=== PATIENT | female | born 1955 | race Caucasian/White ===

== ENCOUNTER 2020-03-13 15:59 | Outpatient (CLI) | payer OTHER, SELFPAY ==
--- NOTE | ~2020-03-13 | XR_ITS ---
XR cervical spine 4-5V 03/13/2020 16:26 Indication: Cervicalgia. Neck pain. Left arm pain. Procedure: 4 views of the cervical spine Comparison: No prior studies for comparison. Findings: Reversal of cervical lordosis. There is disc narrowing at C3-4, C4-5 and C5-6 with endplate degenerative changes. There are uncinate and facet hypertrophic changes at C4-5, C5-6 and C6-7. Lung apices are normal. Odontoid process within normal limits. No prevertebral soft tissue swelling. Impression: 1: Moderate cervical spondylosis with reversal of cervical lordosis. Reviewed, dictated and finalized at location A. Impression: 1: Moderate cervical spondylosis with reversal of cervical lordosis.
--- NOTE | ~2020-03-13 | XR_ITS ---
XR thoracic spine 3V 03/13/2020 16:26 Indication: Back pain Procedure: 5 views of the thoracic spine Comparison: No prior studies for comparison. Findings: Vertebral body heights are maintained. Normal thoracic alignment. Pedicles intact. No jessie rodolfo soft tissue abnormality. There is mild disc narrowing at multiple levels of the mid and lower t horacic spine. Surrounding osseous structures within normal limits. Left basilar atelectasis. Impression: 1: Mild thoracic spondylosis. Reviewed, dictated and finalized at location A. Impression: 1: Mild thoracic spondylosis.
== END 2020-03-13 16:00 | disposition home or self-care (01) ==
PROVIDERS: PCP Family Medicine; Visit Provider Physician Assistant
DX: M54.2 Cervicalgia (principal); M54.6 Pain in thoracic spine; M47.814 Spondylosis without myelopathy or radiculopathy, thoracic region; M47.812 Spondylosis without myelopathy or radiculopathy, cervical region
CPT/HCPCS: 72050; 72072

== ENCOUNTER 2020-08-28 06:34 | Outpatient (NON) | payer BC, SELFPAY ==
[2020-08-29 01:03] LABS: SARS-CoV-2 RNA PCR Negative
== END 2020-08-28 06:35 ==
LOC: ANHCOVIDDT 06:34
PROVIDERS: PCP Family Medicine; Visit Provider Family Medicine
DX: Z20.828 Contact with and (suspected) exposure to other viral communicable diseases (principal); J02.9 Acute pharyngitis, unspecified
CPT/HCPCS: 87635; C9803; U0003

== ENCOUNTER → 2020-11-02 10:17 | Outpatient (CLI) | payer MEDICARE, SELFPAY ==
--- NOTE | ~2020-11-02 | MM_ITS ---
EXAMINATION: MM screening johanna BI w rao HISTORY: Screening mammogram TECHNIQUE: Craniocaudal and mediolateral oblique 3-D tomosynthesis images were obtained and synthetic 2-D images were generated. CAD analysis was submitted and interpreted. COMPARISON: 08/08/2019 bilateral digital screening mammogram 07/20/2018 bilateral diagnostic digital mammogram and Limited bilateral breast ultrasound examination 12/19/2017 bilateral diagnostic digital mammogram and complete bilateral breast ultrasound 12/08/2017, 12/02/2016 bilateral digital screening mammogram examinations BREAST PARENCHYMAL COMPOSITION: There are scattered areas of fibroglandular density. FINDINGS: Mammographic asymmetries are noted in the upper and lower right breast on screening MLO vie w. Diagnostic right mammogram is recommended, with ultrasound if required. Otherwise there is no evidence of suspicious mass, calcification, or architectural distortion to sug gest malignancy in either breast. There has been no other suspicious interval change. IMPRESSION: 1. Mammographic asymmetries in upper and lower right breast on screening MLO view 2. Diagnostic right mammogram is recommended, with ultrasound if required BI-RADS Category 0: Incomplete: Needs additional imaging evaluation. Reviewed, dictated and finalized at location A. ON KEEPER IMPRESSION: 1. Mammographic asymmetries in upper and lower right breast on screening MLO vi ew 2. Diagnostic right mammogram is recommended, with ultrasound if required BI-RADS Category 0: Incomplete: Needs additional imaging evaluation.
== END ==
PROVIDERS: PCP Family Medicine; Visit Provider Obstetrics & Gynecology
DX: Z12.31 Encounter for screening mammogram for malignant neoplasm of breast (principal); R92.8 Other abnormal and inconclusive findings on diagnostic imaging of breast
CPT/HCPCS: 77063; 77067

== ENCOUNTER → 2020-11-10 07:48 | Outpatient (CLI) | payer MEDICARE, SELFPAY ==
--- NOTE | ~2020-11-10 | MMUS_ITS ---
EXAMINATION: MM diagnostic mammo unilat RT, US breast RT complete HISTORY: Follow-up breast asymmetries TECHNIQUE: Additional 3-D tomosynthesis images of right were performed and synthetic 2-D images were generated. CAD analysis was submitted and interpreted. High resolution right breast ultrasound was pe rformed. COMPARISON: Comparison to multiple prior studies sequentially, with oldest reviewed study dated 09/15. BREAST PARENCHYMAL COMPOSITION: Breast composed of scattered areas of fibroglandular density. FINDINGS: MAMMOGRAPHIC FINDINGS: There is a 5 mm mass in the lower inner quadrant of the right breast. There is a 5 mm mass lateral as pect of the right breast on CC view, likely inferior. ULTRASOUND: Right breast ultrasound: At 5:00, 3 cm from the nipple, there is a 2 mm cyst. At 8:00, 6 cm from the nipple, there is a 3 mm cyst. At 9:00, 4 cm from the nipple there is a 5 mm cyst. These correspond to the mammographic findings. No suspicious masses to suggest malignancy. IMPRESSION: 1. No evidence for malignancy in the right breast. Benign findings. 2. Routine yearly screening mammogram and regular clinical breast examination are recommended. BI-RADS Category 2: Benign finding(s). Reviewed, dictated and finalized at location A. ETO SPECIALIST IMPRESSION: 1. No evidence for malignancy in the right breast. Benign findings. 2. Routine yearly screening mammogram and regular clinical breast examination a re recommended. BI-RADS Category 2: Benign finding(s).
== END ==
PROVIDERS: PCP Family Medicine; Visit Provider Obstetrics & Gynecology
DX: R92.8 Other abnormal and inconclusive findings on diagnostic imaging of breast (principal)
CPT/HCPCS: 76641; 77065

== ENCOUNTER 2021-04-03 10:46 | Emergency (ER) | payer MEDICARE, SELFPAY ==
--- NOTE | ~2021-04-03 | CT_ITS ---
EXAMINATION: CT abdomen pelvis w con INDICATION: Abdominal pain TECHNIQUE: Computed tomographic images of the abdomen and pelvis were obtained after the administrati on of 100 cc of Omnipaque 350 intravenous contrast. The dose-length product (DLP) was 612.46 mGy-cm. Automated exposure control and iterative reconstruction technique were employed. COMPARISON: 08/09/2011 FINDINGS: Minimal dependent atelectasis is present in the lung bases. The heart size is normal. Chron ic left lower lobe nodules measuring up to 4 mm are consistent with old granulomatous disease. The li lissette is diffusely low in attenuation when compared with the spleen, consistent with hepatic steatosis. The spleen, pancreas, gallbladder, and adrenal glands are normal. The kidneys are unremarkable. No p athologically enlarged abdominal or pelvic lymph nodes are identified. There is no free intraperitone al gas or evidence of bowel obstruction. There is wall thickening of the sigmoid colon and proximal r ectum with edematous stranding of the adjacent pericolic fat. There is mild lumbar spondylosis. IMPRESSION: 1. Wall thickening of the sigmoid colon and proximal rectum consistent with colitis. 2. Diffuse hepatic steatosis. Reviewed, dictated and finalized at location A. IMPRESSION: 1. Wall thickening of the sigmoid colon and proximal rectum consistent with col itis. 2. Diffuse hepatic steatosis.
[2021-04-03 10:52] VITALS: BP 154/67; PULSE 83; RESP 20; TEMP 36.8; O2SAT 100
[2021-04-03 11:02] VITALS: BP 131/91; PULSE 88; RESP 20; O2SAT 100
[2021-04-03 11:07] LABS: Basophils Absolute Auto 0.1 K/mm3 (0.0-0.1); Basophils Percent Auto 0.6 % (0.2-1.2); Eosinophils Absolute Auto 0.2 K/mm3 (0-0.3); Eosinophils Percent Auto 1.9 % (0-4.4); Hematocrit 43.5 % (37.0-47.0); Hemoglobin 14.8 g/dL (12.0-15.0); Immature Granulocyte Absolute 0.04 K/mm3 (0.00-0.031); Immature Granulocyte Percent A 0.4 % (0-0.5); Lymphocytes Percent Auto 28.4 % (18.3-44.2); Mean Corpuscular Hemoglobin 30.8 pg (26-34); Mean Corpuscular Volume 90.4 fl (80-100); Mean Platelet Volume 10.7 fl (7.4-10.4); Monocytes Absolute Auto 0.6 K/mm3 (0.1-0.6); Monocytes Percent Auto 5.7 % (2.6-8.5); Neutrophils Absolute Auto 6.4 K/mm3 (1.3-6.7); Platelet Count Result 274 k/mm3 (150-375); Red Blood Count 4.81 M/mm3 (4.2-5.4); Red Cell Distribution Width 12.9 % (11.5-14.5); White Blood Count 10.2 K/mm3 (4.5-10.0)
[2021-04-03 11:16] LABS: Alanine Aminotransferase 42 U/L (4-35); Albumin Level 4.9 g/dL (3.5-5.1); Alkaline Phosphatase 122 U/L (38-126); Anion Gap 13 mmol/L (8-16); Aspartate Amino Transferase 39 U/L (14-36); Bilirubin,Total 0.5 mg/dL (0.2-1.3); Blood Urea Nitrogen 17 mg/dL (7-17); Calcium 10.5 mg/dL (8.4-10.2); Carbon Dioxide 22 mmol/L (22-30); Chloride 105 mmol/L (98-107); Estimated CRCL calculation 75 ml/min; Estimated Glomerular Filt Rate > 60; Glucose 167 mg/dL (65-105); Lipase 123 U/L (23-300); Potassium 3.4 mmol/L (3.4-5.0); Sodium 140 mmol/L (137-145)
--- NOTE | 2021-04-03 11:23 | ED.GENADULT ---
HPI - General Adult General Chief complaint: Abdominal Pain Stated complaint: abd pain Time Seen by Provider: 04/03/21 10:50 Source: patient Mode of arrival: ambulatory Limitations: no limitations History of Present Illness HPI narrative: Patient presents for evaluation of abdominal pain. Symptom onset this morning. She states she has constant cramping and churning with intermittent periods of sharp pain. She has a hx of diverticulosis/diverticulitis and states current symptoms are consistent with those experienced with diverticulitis in the past. She states she ate popcorn last night and this has induced symptoms in the past. She experienced cold sweats and nausea. No fever or vomiting. She had a bowel movement just prior to my evaluation and states that this did alleviate some of her pain. She did note some mucous in the stool without visible blood. Related Data Home Medications Medication Instructions Recorded Confirmed calcium carbonate 600 mg calcium 600 mg PO DAILY 10/31/19 04/03/21 (1,500 mg) tablet cholecalciferol (vitamin D3) 100 4,000 unit PO DAILY 10/31/19 04/03/21 mcg (4,000 unit) tablet losartan-hydrochlorothiazide 1 tablet PO DAILY 04/03/21 04/03/21 Allergies Allergy/AdvReac Type Severity Reaction Status Date / Time Penicillins Allergy Unknown Unknown Verified 04/03/21 10:55 Review of Systems Review of Systems: Narrative: CONSTITUTIONAL: Reports cold sweats. Denies fever EYES: Denies visual changes, redness, or discharge. ENT: Denies rhinorrhea, congestion, sore throat, or otalgia. CARDIOVASCULAR: Denies chest pain, palpitations, or edema. RESPIRATORY: Denies cough or dyspnea. GASTROINTESTINAL: Reports abdominal pain and nausea. Denies vomiting GENITOURINARY: Denies dysuria or hematuria. SKIN: Denies rash or itching. MUSCULOSKELETAL: Denies back pain, joint pain, or myalgia. NEUROLOGIC: Denies headache, numbness, dizziness, or weakness. PSYCHIATRIC: Denies anxiety or depression. [facility] Past Medical History Medical History Asthma Diverticulitis Hyperlipidemia Hypertension Irritable bowel Osteoporosis Pneumonia Surgical History Surgical History H/O laparoscopy Family History Family History Mother Family history of malignant neoplasm Father Family history of diabetes mellitus in first degree relative Diabetes mellitus Other Family history of malignant neoplasm of breast Social History Social History Smoking status: Never smoker Second hand tobacco smoke exposure: No Alcohol intake: current Drinks per week: 6 Substance use: never Substance use type: does not use Gender identity (if verbalized by the patient): Female Exam Narrative: Exam Narrative: GENERAL: Well-appearing, well-nourished, and in no acute distress. HEAD: Normocephalic, atraumatic. EYES: PERRLA and EOMI. ENT: Nares clear, no rhinorrhea or epistaxis. Mucous membranes moist. Oropharynx without tonsillar hypertrophy exudate or other lesions. Bilateral TMs pearly calderon nonbulging NECK: Supple. No adenopathy or masses. No carotid bruits or JVD CHEST: Clear to auscultation. No respiratory distress. No wheezes rales or rhonchi HEART: Regular rate and rhythm. No murmur heard. Normal peripheral pulses. ABDOMEN: Soft, tender in BLQ and suprapubic region. Nondistended, normal active bowel sounds. EXTREMITIES: Normal range of motion. No edema. SKIN: Warm, dry, no rash. NEURO: No focal deficits. Alert and oriented x3. PSYCH: Normal mood and affect. Course Course Emergency Course: This is a 65-year-old female who presented with complaints of abdominal pain. CT consistent with colitis. She was given morphine in the emergency department and had alleviation of her
[2021-04-03] MEDS: MORPHINE SULFATE (*CRX) 2 MG/ML INJ IV PUSH (12:06)
[2021-04-03] MEDS: SODIUM CHLORIDE 0.9% IV 1,000 ML 999 ML IV CONT (12:06)
[2021-04-03 12:21] LABS: Add Urine Microscopic? YES; Appearance Urine Clear (Clear); Bilirubin Urine Negative (Negative); Blood Urine Negative (Negative); Color Urine Amber (Yellow); Glucose Urine UA Negative (Negative); Ketones Urine Negative (Negative); Leukocyte Esterase Ur Negative LEU/UL (Negative); Mucus Urine Moderate /lpf; Nitrate Urine Negative (Negative); Protein Urine 2+ mg/dL (Negative); RBC Urine 0-2 /hpf (0-2); Specific Grav Ur 1.021 (1.001-1.035); Squamous Epithelial Cell Urine Few /hpf (Few); Urobilinogen Urine Negative mg/dL (<2.0); WBC Urine 0-3 /hpf
[2021-04-03 13:44] VITALS: BP 128/68; PULSE 88; RESP 17; O2SAT 98
[2021-04-03] MEDS: HYDROcodone/acetaminophen (*CRX) 5-325 MG TABLET 2 TAB PO (13:51)
== END 2021-04-03 13:52 | disposition home or self-care (01) ==
PROVIDERS: Emergency Provider Nurse Practitioner; PCP Family Medicine
DX: K52.9 Noninfective gastroenteritis and colitis, unspecified (principal); K76.0 Fatty (change of) liver, not elsewhere classified; J45.909 Unspecified asthma, uncomplicated; E78.5 Hyperlipidemia, unspecified; I10 Essential (primary) hypertension; M81.0 Age-related osteoporosis without current pathological fracture
CPT/HCPCS: 36415; 74177; 80053; 81001; 83690; 85025; 96361; 96374; 99284; A9270; J2270; J7030; Q9967

== ENCOUNTER 2021-06-08 01:35 | Day surgery (SDC) | payer MEDICARE, SELFPAY ==
[2021-05-28 09:33] VITALS: BMI 25.9
--- NOTE | 2021-06-07 13:32 | P.PNAN_ITS ---
Anes - Initial Pre Proc Eval Procedure: Operation Date: 06/08/21 07:30 Proposed Procedures p Colonoscopy - Marcial Wilkes MD Date/Time: 06/07/21 13:32 Surgeon: Marcial Wilkes MD Pre Op Diagnosis: colitis Patient Data Age: 65 Gender: F Height: 1.78 m Weight: 82 kg Allergies Allergy/AdvReac Type Severity Reaction Status Date / Time Penicillins Allergy Unknown Unknown Verified 06/08/21 06:19 Home Medications Medication Instructions Recorded Confirmed Type calcium carbonate 600 mg calcium 600 mg PO DAILY 10/31/19 06/08/21 History (1,500 mg) tablet cholecalciferol (vitamin D3) 100 4,000 unit PO DAILY 10/31/19 06/08/21 History mcg (4,000 unit) tablet melatonin 10 mg capsule 10 mg PO QHS #30 cap 12/28/20 06/08/21 Rx montelukast 10 mg tablet 10 mg PO DAILY #90 tablet 03/10/21 06/08/21 Rx losartan-hydrochlorothiazide 1 tablet PO DAILY 04/03/21 06/08/21 History diclofenac sodium 50 mg 50 mg PO .PRN tablet 04/20/21 06/08/21 History tablet,delayed release Patient hx anesthesia problems: none Family hx anesthesia problems: none PMFSH Past Medical History Medical History (Updated 06/07/21 @ 13:32 by Jasiel Noble DO) Asthma Diverticulitis Hyperlipidemia Hypertension Irritable bowel Osteoporosis Pneumonia PVC's (premature ventricular contractions) RBBB Surgical History Surgical History H/O laparoscopy Family History Family History (Updated 04/20/21 @ 10:21 by Gail Tirado MA) Mother Family history of malignant neoplasm Father Family history of diabetes mellitus in first degree relative Diabetes mellitus Sibling Diabetes mellitus Hypertension Grandparent Cancer Other Family history of malignant neoplasm of breast Social History Social History (Updated 04/20/21 @ 10:22 by Gail Tirado MA) Smoking status: Never smoker Second hand tobacco smoke exposure: No Alcohol intake: current Drinks per week: 10 Substance use: never Substance use type: does not use Living arrangements: with family Gender identity (if verbalized by the patient): Female Spiritual care concerns: No Agree to blood products: Yes Anes - Eval Final PreProcedure Day of Procedure 06/07/21 13:32 Patient weight: overweight Heart: regular rate and rhythm Lungs: clear to auscultation and normal air movement Airway: Mallampati scale class II Neurological: alert and oriented Last oral intake: >/= 8 hours ASA classification: III Emergent: no Anesthetic plan: proceed Anesthesia type and monitoring: general GIVS and standard monitoring Informed Consent: The patient's anesthetic plan and its attendant risks and benefits were discussed with the patient/family/POA. Questions were solicited and answers provided to the satisfaction of the patient/family/POA.
[2021-06-08 06:20] VITALS: BP 135/62; PULSE 83; RESP 16; TEMP 36.6; O2SAT 98; BMI 26.4
[2021-06-08] MEDS: LACTATED RINGERS 1,000 ML 150 ML IV CONT (06:23)
--- NOTE | 2021-06-08 07:33 | PM.HPGS ---
History of Present Illness History of Present Illness Consent: Risks, benefits, and alternatives have been discussed and questions answered. Patient agrees to proceed with procedure. Chief complaint: colitis Narrative: Anabela Eaton is a 65 year old female that several weeks ago had left sided colitis treated with antibiotics and resolved since. She had colonoscopy [place] [address] Davis that was unsuccessful believed to be caused by stricture 2/2 endometriosis. Had positive Cologuard in 2018 followed by a virtual colonoscopy. Review of Systems Constitutional: Constitutional: Denies headache(s) and Denies weakness Eyes: Eyes: Denies blurry vision ENT: Reports Normal hearing present, Denies headache(s) and Denies neck pain Cardiovascular: Cardiovascular: Denies chest pain and Denies dyspnea Respiratory: Respiratory: Denies dyspnea Gastrointestinal: Gastrointestinal: Reports no additional gastrointestinal complaints Genitourinary: Genitourinary: Denies dysuria Musculoskeletal: Musculoskeletal: Denies neck pain Integumentary/Breasts: Skin/Breast: Denies dry skin Neurologic: Reports Normal hearing present, Denies headache(s) and Denies weakness Psychiatric: Psychiatric: Denies anxiety Endocrine: Endocrine: Denies change in body appearance Hematologic/Lymphatic: Hematologic/Lymphatic: Denies easy bleeding Allergic/Immunologic: Allergic/Immunologic: Denies urticaria PMFSH Past Medical History Medical History (Updated 06/07/21 @ 13:32 by Jasiel Noble DO) Asthma Diverticulitis Hyperlipidemia Hypertension Irritable bowel Osteoporosis Pneumonia PVC's (premature ventricular contractions) RBBB Surgical History Surgical History H/O laparoscopy Family History Family History (Updated 04/20/21 @ 10:21 by Gail Tirado MA) Mother Family history of malignant neoplasm Father Family history of diabetes mellitus in first degree relative Diabetes mellitus Sibling Diabetes mellitus Hypertension Grandparent Cancer Other Family history of malignant neoplasm of breast Social History Social History (Updated 04/20/21 @ 10:22 by Gail Tirado MA) Smoking status: Never smoker Second hand tobacco smoke exposure: No Alcohol intake: current Drinks per week: 10 Substance use: never Substance use type: does not use Living arrangements: with family Gender identity (if verbalized by the patient): Female Spiritual care concerns: No Agree to blood products: Yes Meds Home Medications and Allergies Home Medications Medication Instructions Recorded Confirmed Type calcium carbonate 600 mg calcium 600 mg PO DAILY 10/31/19 06/08/21 History (1,500 mg) tablet cholecalciferol (vitamin D3) 100 4,000 unit PO DAILY 10/31/19 06/08/21 History mcg (4,000 unit) tablet melatonin 10 mg capsule 10 mg PO QHS #30 cap 12/28/20 06/08/21 Rx montelukast 10 mg tablet 10 mg PO DAILY #90 tablet 03/10/21 06/08/21 Rx losartan-hydrochlorothiazide 1 tablet PO DAILY 04/03/21 06/08/21 History diclofenac sodium 50 mg 50 mg PO .PRN tablet 04/20/21 06/08/21 History tablet,delayed release Allergies Allergy/AdvReac Type Severity Reaction Status Date / Time Penicillins Allergy Unknown Unknown Verified 06/08/21 06:19 Vital Signs Vital Signs - 24 hr 06/08/21 06:20 Temperature 98 F Pulse Rate 83 Respiratory Rate 16 Blood Pressure 135/62 Pulse Oximetry 98 Exam Const: General: comfortable and no acute distress HENMT: General nose exam: Normal nares present Eyes: General: appearance normal, both eyes and all related structures Neck: Neck: no JVD Resp: Auscultation: clear to auscultation bilaterally Cardio: Rate: regular rate Rhythm: regular rhythm GI: Inspection: non-distended GI Palp: Yes Soft to palpation Skin: General skin exam: normal color Neuro: General: gait normal Speech: normal speech
[2021-06-08 08:12] VITALS: BP 103/74; PULSE 59; RESP 15; O2SAT 99
[2021-06-08 08:22] VITALS: BP 111/64; PULSE 65; RESP 19; O2SAT 100
[2021-06-08 08:32] VITALS: BP 118/80; PULSE 56; RESP 16; O2SAT 97
== END 2021-06-08 08:41 | disposition home or self-care (01) ==
PROVIDERS: PCP Family Medicine; Visit Provider Internal Medicine Gastroenterology
PROC: 0DJD8ZZ Inspection of Lower Intestinal Tract, Via Natural or Artificial Opening Endoscopic (ICD-10-PCS; CPT 45378; principal; 2021-06-08 07:30)
DX: Z09 Encounter for follow-up examination after completed treatment for conditions other than malignant neoplasm (principal); K52.9 Noninfective gastroenteritis and colitis, unspecified; K57.30 Diverticulosis of large intestine without perforation or abscess without bleeding; K64.8 Other hemorrhoids; J45.909 Unspecified asthma, uncomplicated; E78.5 Hyperlipidemia, unspecified; I10 Essential (primary) hypertension; M81.0 Age-related osteoporosis without current pathological fracture; I49.3 Ventricular premature depolarization; I45.10 Unspecified right bundle-branch block
CPT/HCPCS: 45378; J2704; J7120

== ENCOUNTER → 2021-06-23 09:48 | Outpatient (CLI) | payer MEDICARE, SELFPAY ==
[2021-06-23 20:24] LABS: SARS-CoV-2 RNA PCR Negative
== END ==
PROVIDERS: PCP Family Medicine; Visit Provider Nurse Practitioner Family
DX: R05 Cough (principal); R68.89 Other general symptoms and signs; Z20.822 Contact with and (suspected) exposure to COVID-19
CPT/HCPCS: C9803; U0003; U0005

== ENCOUNTER 2021-11-22 09:59 | Outpatient (CLI) | payer MEDICARE, SELFPAY ==
[2021-11-22 11:46] LABS: Basophils Absolute Auto 0.1 K/mm3 (0.0-0.1); Basophils Percent Auto 0.7 % (0.2-1.2); Eosinophils Absolute Auto 0.2 K/mm3 (0-0.3); Eosinophils Percent Auto 2.3 % (0-4.4); Hematocrit 41.8 % (37.0-47.0); Hemoglobin 14.1 g/dL (12.0-15.0); Immature Granulocyte Absolute 0.02 K/mm3 (0.00-0.031); Immature Granulocyte Percent A 0.3 % (0-0.5); Lymphocytes Absolute Auto 1.99 K/mm3 (0.9-3.2); Lymphocytes Percent Auto 28.6 % (18.3-44.2); Mean Corpuscular HGB Conc 33.7 g/dl (32-36); Mean Corpuscular Hemoglobin 32.6 pg (26-34); Mean Corpuscular Volume 96.5 fl (80-100); Mean Platelet Volume 10.3 fl (7.4-10.4); Monocytes Absolute Auto 0.5 K/mm3 (0.1-0.6); Monocytes Percent Auto 6.8 % (2.6-8.5); Neutrophils Absolute Auto 4.3 K/mm3 (1.3-6.7); Neutrophils Percent Auto 61.3 % (45.5-73.1); Platelet Count Result 247 k/mm3 (150-375); Red Blood Count 4.33 M/mm3 (4.2-5.4); Red Cell Distribution Width 12.6 % (11.5-14.5)
[2021-11-22 12:00] LABS: Albumin Level 4.5 g/dL (3.5-5.1); Anion Gap 8 mmol/L (8-16); Blood Urea Nitrogen 20 mg/dL (7-17); Calcium 9.7 mg/dL (8.4-10.2); Carbon Dioxide 28 mmol/L (22-30); Chloride 100 mmol/L (98-107); Estimated Glomerular Filt Rate > 60; Glucose 102 mg/dL (65-110); Potassium 3.6 mmol/L (3.4-5.0); Sodium 136 mmol/L (137-145)
[2021-11-22 12:07] LABS: Urine Cotinine NEGATIVE
[2021-11-22 12:21] LABS: Hemoglobin A1C 5.5 % (<5.7)
== END 2021-11-22 10:00 | disposition home or self-care (01) ==
LOC: ANHSURGERY 10:06
PROVIDERS: PCP Family Medicine; Visit Provider Orthopaedic Surgery
DX: Z01.818 Encounter for other preprocedural examination (principal); M16.11 Unilateral primary osteoarthritis, right hip
CPT/HCPCS: 80048; 80307; 82040; 83036; 85025; 87070; 87147; 87181; 87186

== ENCOUNTER 2021-12-06 00:47 | Day surgery (SDC) | payer MEDICARE, SELFPAY ==
[2021-11-22 10:21] VITALS: BMI 28.6
--- NOTE | 2021-11-22 10:44 | PC.NURSE ---
Report to the Outpatient Waiting Room, entrance under the green pavilion located off [facility], at time _6:00AM on date __12/06/21 . OR Time: ___7:30AM . - You will be asked a series of questions to screen for COVID 19 for your protection. - A mask is required within the hospital. - No visitors are allowed at this time. Preoperative COVID Testing Requirements: No COVID Test needed if: (proof is required; if not received patient will have Rapid Test prior to entry) - Patient has received COVID Vaccine at least 14 days prior to procedure date or - Patient has positive COVID test result within last 90 days of surgery date. COVID Test needed if above criteria is not met If not COVID vaccinated a COVID test must be conducted within 72 hours of surgery and patient is asked to isolate self from time of testing until procedure. You will go to the [employer] [facility] for your COVID testing. The [employer] [facility] Testing site is located at the corner of [address] [facility]. You will only be called if COVID results are positive and your surgeon may reschedule your elective surgery date. Patients may have clear liquids (water, carbonated beverages, clear teas, apple juice) until 3 hours prior to surgery with a maximum of 20 ounces. - No food from midnight until time of surgery - Infants may have breast milk until 4 hours before surgery, infant formula 6 hours prior to surgery. - Children will be allowed to drink immediately following surgery. If applicable, please bring a bottle or sippy cup to assist with drinking. Juice, water, soda, and popsicles are readily available. For infants on formula, please bring formula the day of surgery. Pacifiers are allowed. Take the following medications with a SIP of water the morning of surgery: ____NONE Medications to discontinue per physician ALL VITAMINS/SUPPLEMENTS 3 DAYS PRE-OP, LAST DOSE 12/02/21, DICLOFENAC 7 DAYS DAYS PRE-OP, LAST DOSE 11/29/21 Date to take last dose Please no make-up, nail mauritian, hairspray, perfume, deodorant, or body powder the day of surgery. No jewelry (including any body piercings) or valuables the day of surgery, leave them at home. Please take a shower or bath the night before, or the morning of, surgery with an antibacterial soap. Wear comfortable, loose fitting clothing. Children are encouraged to wear pajamas. - Jewelry must be removed prior to entering the operating room. Rings and piercings that are not removed may be cut off. - The hospital will not accept responsibility for valuables. - Please leave all valuables, including medications, at home the day of surgery. If you are going home after surgery, a licensed services delivery driver must drive you home. - NO public transportation without another adult. - We recommend that an adult stay with you for 24 hours following discharge. - We also recommend that you do not drive, make important decision, drink alcoholic beverages, or take any drugs that were not prescribed by your health care provider for at least 24 hours after your discharge time. For Pediatric surgeries, we recommend two adults accompany the child home (only one inside the building at this time). Follow any additional instructions given to you from your surgeon. Telephone instructions given to __PATIENT and asked if any additional questions and then verbalized understanding. Patient advised to call surgeon office or pre surgery nurse liaison [phone] if any additional questions.
[2021-11-22 10:54] VITALS: BP 142/67; PULSE 67; RESP 16; TEMP 36.5; O2SAT 96
--- NOTE | 2021-12-03 07:56 | PM.IMHP ---
H&P: HPI History of Present Illness Date/Time: 12/03/21 07:56 66-year-old female who presents today for a right anterior total hip arthroplasty. Patient has been having progressively worsening symptoms over the course of last several years. Reached a point she is having severe pain daily basis. She has been on anti-inflammatories long-term. Patient does have moderately severe arthritis in the. This she feels her symptoms are bad enough on a daily basis she is ready to proceed with total hip arthroplasty rather continue nonsurgical treatment. Chief Complaint: Right hip DJD Review of Systems Review of Systems: All systems reviewed & are unremarkable except as noted in HPI and below PMFSH Past Medical History Medical History Asthma Diverticulitis Hyperlipidemia Hypertension Irritable bowel Osteoporosis Pneumonia PVC's (premature ventricular contractions) RBBB Surgical History Surgical History H/O laparoscopy Family History Family History Mother Family history of malignant neoplasm Father Family history of diabetes mellitus in first degree relative Diabetes mellitus Sibling Diabetes mellitus Hypertension Grandparent Cancer Other Family history of malignant neoplasm of breast Social History Social History Smoking status: Never smoker Second hand tobacco smoke exposure: No Alcohol intake: never Drinks per week: 7 Substance use: never Substance use type: does not use Additional living arrangements comments: Gender identity (if verbalized by the patient): Female Sexual Orientation (if Verbalized by the Patient): Straight or Heterosexual Spiritual care concerns: No Agree to blood products: Yes Meds Home Medications and Allergies Home Medications Medication Instructions Recorded Confirmed Type calcium carbonate 600 mg calcium 600 mg PO DAILY 10/31/19 11/22/21 History (1,500 mg) tablet melatonin 10 mg capsule 10 mg PO QHS #30 cap 12/28/20 11/22/21 Rx montelukast 10 mg tablet 10 mg PO DAILY #90 tablet 03/10/21 11/22/21 Rx diclofenac sodium 50 mg 50 mg PO DAILY PRN tablet 04/20/21 11/22/21 History tablet,delayed release albuterol sulfate 90 mcg/actuation 2 inh INHALATION Q4H PRN #6.7 g 06/22/21 11/22/21 Rx aerosol inhaler cholecalciferol (vitamin D3) 50 mcg PO DAILY 11/22/21 11/22/21 History losartan-hydrochlorothiazide 1 tablet PO QAM 11/22/21 11/22/21 History Allergies Allergy/AdvReac Type Severity Reaction Status Date / Time Penicillins Allergy Unknown Rash Verified 11/22/21 10:16 Exam Narrative: 66-year-old female alert pleasant. She is 5 ft 9 and 1 and 6 lb. She has a 2+ dorsalis pedis and posterior artery pulse is palpable. Normal sensation. Skin around hip and groin crease are all normal. No edema in lower extremities. The right hip flexes to 125 internally rotates to 0 externally rotates to 30, all causing anterior lateral and lateral hip pain. Stinchfield maneuver causes anterior lateral hip pain. He has normal abduction strength in lateral position. Minimal tenderness over the greater trochanter. She walks with a very slight limp. Resp: Auscultation: clear to auscultation bilaterally Cardio: Rate: regular rate Rhythm: regular rhythm Assessment and Plan Additional Plan 66-year-old female who has moderately severe arthritis of right hip. Again she is having significant symptoms on a daily basis. She has been on anti-inflammatories long-term without improvement of her symptoms. She feels that the hip is affecting her daily life. She feels that at this point she would like to proceed with total hip arthroplasty. Surgical procedures well as the risks and complications were discussed in detail questions were answered doris costa
--- NOTE | 2021-12-03 16:20 | WPDANESEPPF ---
Anes - Initial Pre Proc Eval Procedure: Operation Date: 12/06/21 07:30 Proposed Procedures p Right Total Hip Arthroplasty Anterior Approach - Darci Graves MD Date/Time: 12/03/21 16:20 Surgeon: Darci Graves MD Pre Op Diagnosis: oa right hip Patient Data Age: 66 Gender: F Height: 1.75 m Weight: 88.1 kg Last Vital Signs Temp 97.7 F 11/22/21 10:54 Pulse 67 11/22/21 10:54 Resp 16 11/22/21 10:54 BP 142/67 H 11/22/21 10:54 Pulse Ox 96 11/22/21 10:54 Allergies Allergy/AdvReac Type Severity Reaction Status Date / Time Penicillins Allergy Unknown Rash Verified 11/22/21 10:16 Home Medications Medication Instructions Recorded Confirmed Type calcium carbonate 600 mg calcium 600 mg PO DAILY 10/31/19 12/06/21 History (1,500 mg) tablet melatonin 10 mg capsule 10 mg PO QHS #30 cap 12/28/20 12/06/21 Rx montelukast 10 mg tablet 10 mg PO DAILY #90 tablet 03/10/21 12/06/21 Rx diclofenac sodium 50 mg 50 mg PO DAILY PRN tablet 04/20/21 12/06/21 History tablet,delayed release albuterol sulfate 90 mcg/actuation 2 inh INHALATION Q4H PRN #6.7 g 06/22/21 12/06/21 Rx aerosol inhaler cholecalciferol (vitamin D3) 50 mcg PO DAILY 11/22/21 12/06/21 History losartan-hydrochlorothiazide 1 tablet PO QAM 11/22/21 12/06/21 History Patient hx anesthesia problems: post op nausea/vomiting Family hx anesthesia problems: none Results Review: All pre-operative results and documents have been reviewed as part of the pre-operative evaluation. PMFSH Past Medical History Medical History Asthma Diverticulitis Hyperlipidemia Hypertension Irritable bowel Osteoporosis Pneumonia PVC's (premature ventricular contractions) RBBB Surgical History Surgical History H/O laparoscopy Family History Family History Mother Family history of malignant neoplasm Father Family history of diabetes mellitus in first degree relative Diabetes mellitus Sibling Diabetes mellitus Hypertension Grandparent Cancer Other Family history of malignant neoplasm of breast Social History Social History Smoking status: Never smoker Second hand tobacco smoke exposure: No Alcohol intake: never Drinks per week: 7 Substance use: never Substance use type: does not use Living arrangements: with family Additional living arrangements comments: Gender identity (if verbalized by the patient): Female Sexual Orientation (if Verbalized by the Patient): Straight or Heterosexual Spiritual care concerns: No Agree to blood products: Yes Anes - Eval Final PreProcedure Day of Procedure 12/03/21 16:20 Patient weight: normal Heart: regular rate and rhythm Lungs: clear to auscultation Airway: Mallampati scale class III Neurological: alert and oriented Last oral intake: >/= 8 hours ASA classification: III Emergent: no Anesthetic plan: proceed Anesthesia type and monitoring: general ETT and standard monitoring Results Review: All pre-operative results and documents have been reviewed as part of the pre-operative evaluation. Informed Consent: The patient's anesthetic plan and its attendant risks and benefits were discussed with the patient/family/POA. Questions were solicited and answers provided to the satisfaction of the patient/family/POA.
[2021-12-06] MEDS: LACTATED RINGERS 1,000 ML 30 ML IV CONT (06:40)
[2021-12-06] MEDS: TRANEXAMIC ACID 1,000MG/ISO100 1,000 MG/100 ML BAG 200 MG IVPB (06:46)
[2021-12-06] MEDS: ACETAMINOPHEN 500 MG TABLET 1000 MG PO (06:47)
[2021-12-06 06:54] VITALS: BP 122/59; PULSE 76; RESP 16; TEMP 36; O2SAT 97
--- NOTE | 2021-12-06 07:09 | WPDHPUPDATE1 ---
History and Physical Update Update Date/Time: 12/06/21 07:09 History and Physical has been reviewed, including an updated exam of the patient. There are NO changes in the patient's condition. Risks, benefits, and alternatives have been discussed and questions answered. Patient agrees to proceed with procedure.
[2021-12-06] MEDS: SCOPOLAMINE 1.5 MG PATCH TRANSDERM (07:23)
[2021-12-06] MEDS: ceFAZolin 2 GM/D5W 50 ML 2 GM/50 ML BAG IVPB (07:44)
--- NOTE | 2021-12-06 08:13 | ECG_ITS ---
Measurements Intervals [place] Rate: 83 P: 74 SC: 146 QRS: 59 QRSD: 147 T: 41 QT: 404 QTc: 475 Interpretive Statements SINUS RHYTHM VENTRICULAR BIGEMINY AND VENTRICULAR PREMATURE COMPLEX POSSIBLE LEFT ATRIAL ENLARGEMENT RIGHT BUNDLE BRANCH BLOCK ABNORMAL ECG Electronically Signed On 12-06-2021 13:01:20 PHYSICIAN SCRIBE by Carlos Nassar D.O.
[2021-12-06 08:15] VITALS: BP 110/95; PULSE 81; RESP 16; O2SAT 100
[2021-12-06 08:30] VITALS: BP 138/81; PULSE 77; RESP 12; O2SAT 100
--- NOTE | 2021-12-06 08:42 | SUR.PHASEI ---
0813 surgery aborted due to heart rate in the 30's, pvc's, and a Rbbb. pt has had a history of pvc's and RBBB. pt vital signs stable in pacu, asymptomatic.
[2021-12-06 08:48] VITALS: BP 153/63; PULSE 50; RESP 12; O2SAT 100
[2021-12-06 09:15] VITALS: BP 146/77; PULSE 73; RESP 12
--- NOTE | 2021-12-06 09:18 | SUR.PHASEII ---
PT WAS ALERT AND DISCHARGED HOME WITH .
== END 2021-12-06 09:20 | disposition home or self-care (01) ==
PROVIDERS: PCP Family Medicine; Visit Provider Orthopaedic Surgery
PROC: (CPT 27130; principal; 2021-12-06 07:30)
DX: M16.11 Unilateral primary osteoarthritis, right hip (principal); Z53.09 Procedure and treatment not carried out because of other contraindication; Z79.51 Long term (current) use of inhaled steroids; J45.909 Unspecified asthma, uncomplicated; E78.5 Hyperlipidemia, unspecified; I10 Essential (primary) hypertension; K58.9 Irritable bowel syndrome, unspecified; M81.0 Age-related osteoporosis without current pathological fracture; I49.3 Ventricular premature depolarization; I45.10 Unspecified right bundle-branch block; R00.8 Other abnormalities of heart beat
CPT/HCPCS: 27130; 36415; 80048; 80307; 82040; 83036; 85025; 86850; 86900; 86901; 87070; 87147; 87181; 87186; 93005; A9270; C1713; J0171; J0690; J1170; J1885; J2250; J2270; J2795; J3010; J3370; J7120

== ENCOUNTER 2022-01-19 01:22 | Day surgery (SDC) | payer MEDICARE, SELFPAY ==
--- NOTE | 2022-01-07 11:14 | PC.NURSE ---
Report to the Outpatient Waiting Room, entrance under the green pavilion located off [facility], at time __0600 on date _01/19/22 . OR Time: . - You and your visitor will be asked a series of questions to screen for COVID 19 for your protection. - A mask is required within the hospital. Preoperative COVID Testing Requirements: No COVID Test needed if: (proof is required; if not received patient will have Rapid Test prior to entry) - Patient has received COVID Vaccine at least 14 days prior to procedure date or - Patient has positive COVID test result within last 90 days of surgery date. COVID Test needed if above criteria is not met If not COVID vaccinated a COVID test must be conducted within 72 hours of surgery and patient is asked to isolate self from time of testing until procedure. You will go to the [employer] [facility] for your COVID testing. The [employer] [facility] is located at the corner of [address] [facility]. You will only be called if COVID results are positive and your surgeon may reschedule your elective surgery date. Patients may have clear liquids (water, carbonated beverages, clear teas, apple juice) until 3 hours prior to surgery with a maximum of 20 ounces. - No food from midnight until time of surgery - Infants may have breast milk until 4 hours before surgery, formula 6 hours prior to surgery. - Children will be allowed to drink immediately following surgery. If applicable, please bring a bottle or sippy cup to assist with drinking. Juice, water, soda, and popsicles are readily available. For infants on formula, please bring formula the day of surgery. Pacifiers are allowed. Take the following medications with a SIP of water the morning of surgery: ___INHALER IF NEEDED Medications to discontinue per physician PT STATES ASPIRIN AND ALL VITAMINS AND SUPPLEMENTS 7 DAYS PRE OP PER DR SHEIKH Date to take last dose___01/11/22 Please no make-up, nail uzbek, hairspray, perfume, deodorant, or body powder the day of surgery. No jewelry (including any body piercings) or valuables the day of surgery, leave them at home. Please take a shower or bath the night before, or the morning of, surgery with an antibacterial soap. Wear comfortable, loose fitting clothing. Children are encouraged to wear pajamas. - Jewelry must be removed prior to entering the operating room. Rings and piercings that are not removed may be cut off. - The hospital will not accept responsibility for valuables. - Please leave all valuables, including medications, at home the day of surgery. If you are going home after surgery, a licensed diesel truck driver must drive you home. - NO public transportation without another adult. - We recommend that an adult stay with you for 24 hours following discharge. - We also recommend that you do not drive, make important decision, drink alcoholic beverages, or take any drugs that were not prescribed by your health care provider for at least 24 hours after your discharge time. For Pediatric surgeries, we recommend two adults accompany the child home (only one inside the building at this time). One visitor will be allowed to accompany the patient into the hospital. Patients visitor will be instructed to remain with patient at all times or leave the building. We will allow the visitor to come back to the postoperative area when patient is ready. Follow any additional instructions given to you from your surgeon. Telephone instructions given to ___PATIENT and asked if any additional questions and then verbalized understanding. Patient advised to call surgeon office or pre surgery nurse liaison [phone] if any additional questions.
[2022-01-07 11:19] VITALS: BMI 28.0
--- NOTE | 2022-01-17 11:54 | PM.IMHP ---
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 Patient was scheduled initially for this surgery on 12/06. She had anesthesia, at that time patient was having bradycardia. It was felt to delay surgery because of this , so this could be additionally evaluated. Patient did see cardiology had a stress test done which was negative. She had no ST changes. Left ventricular ejection fraction was 71% and normal myocardial perfusion. She did have a cardiac exercise physiologist worn for several days. She was found to have episodes of bigeminy and trigeminy. Also PVCs. Patient has been cleared from . Patient has been having pain in the right hip for approximately 5-6 years. Is at a point now where she is having constant pain. Most pain is over the anterior lateral aspect of the right hip. She has been on anti-inflammatories without improvement of her symptoms. Her x-rays do show moderately severe arthritis of the right hip. She is very symptomatic on a daily basis. She feels she is ready proceed with total hip arthroplasty. Chief Complaint: right hip DJD Review of Systems Review of Systems: All systems reviewed & are unremarkable except as noted in HPI and below PMFSH Past Medical History Medical History Asthma Diverticulitis Frequent PVCs Hyperlipidemia Hypertension Irritable bowel Osteoporosis Pneumonia PVC's (premature ventricular contractions) RBBB Surgical History Surgical History H/O laparoscopy Family History Family History Mother Family history of malignant neoplasm Father Family history of diabetes mellitus in first degree relative Diabetes mellitus Sibling Diabetes mellitus Hypertension Grandparent Cancer Other Family history of malignant neoplasm of breast Social History Social History Smoking status: Never smoker Second hand tobacco smoke exposure: No Alcohol intake: current Drinks per week: 5 Substance use: never Substance use type: does not use Additional living arrangements comments: Gender identity (if verbalized by the patient): Female Sexual Orientation (if Verbalized by the Patient): Straight or Heterosexual Spiritual care concerns: No Agree to blood products: Yes Meds Home Medications and Allergies Home Medications Medication Instructions Recorded Confirmed Type calcium carbonate 600 mg calcium 1,400 mg PO DAILY 10/31/19 01/07/22 History (1,500 mg) tablet melatonin 10 mg capsule 10 mg PO QHS #30 cap 12/28/20 01/07/22 Rx montelukast 10 mg tablet 10 mg PO DAILY #90 tablet 03/10/21 01/07/22 Rx albuterol sulfate 90 mcg/actuation 2 inh INHALATION Q4H PRN #6.7 g 06/22/21 01/07/22 Rx aerosol inhaler cholecalciferol (vitamin D3) 50 mcg PO DAILY 11/22/21 01/07/22 History losartan-hydrochlorothiazide 1 tablet PO QAM 11/22/21 01/07/22 History Lactobacillus acidophilus 10,000 mmu cells PO DAILY 01/07/22 01/07/22 History [Probiotic] acetaminophen [Tylenol Arthritis] 1,300 mg PO Q8H PRN 01/07/22 01/07/22 History aspirin [Adult Low Dose Aspirin] 81 mg PO DAILY 01/07/22 01/07/22 History geriatric multivitamin-min 1 tablet PO DAILY 01/07/22 01/07/22 History [Multi-Vit 55 Plus] Allergies Allergy/AdvReac Type Severity Reaction Status Date / Time Penicillins Allergy Unknown Rash Verified 01/07/22 10:56 Exam Narrative: 66-year-old female alert pleasant. She is 5 ft 9 and 186 lb. 2+ dorsalis pedis and posterior artery pulse palpable. Normal sensation right lower extremity. No edema in the right lower extremity. Right hip flexes to 125, internally rotates to 0 externally rotates 30 all causing her anterior lateral hip pain. Stinchf
--- NOTE | 2022-01-18 14:25 | WPDANESEPPF ---
Anes - Initial Pre Proc Eval Procedure: Operation Date: 01/19/22 07:30 Proposed Procedures p Right Total Hip Arthroplasty, Anterior Approach - Darci Graves MD Date/Time: 01/18/22 14:25 Surgeon: Darci Graves MD Pre Op Diagnosis: Right Hip Osteo Arthritis Patient Data Age: 66 Gender: F Height: 1.75 m Weight: 86.2 kg Allergies Allergy/AdvReac Type Severity Reaction Status Date / Time Penicillins Allergy Unknown Rash Verified 01/19/22 06:20 Home Medications Medication Instructions Recorded Confirmed Type calcium carbonate 600 mg calcium 1,400 mg PO DAILY 10/31/19 01/19/22 History (1,500 mg) tablet melatonin 10 mg capsule 10 mg PO QHS #30 cap 12/28/20 01/19/22 Rx montelukast 10 mg tablet 10 mg PO DAILY #90 tablet 03/10/21 01/19/22 Rx albuterol sulfate 90 mcg/actuation 2 inh INHALATION Q4H PRN #6.7 g 06/22/21 01/07/22 Rx aerosol inhaler cholecalciferol (vitamin D3) 50 mcg PO DAILY 11/22/21 01/19/22 History losartan-hydrochlorothiazide 1 tablet PO QAM 11/22/21 01/19/22 History Lactobacillus acidophilus 10,000 mmu cells PO DAILY 01/07/22 01/19/22 History [Probiotic] acetaminophen [Tylenol Arthritis] 1,300 mg PO Q8H PRN 01/07/22 01/19/22 History aspirin [Adult Low Dose Aspirin] 81 mg PO DAILY 01/07/22 01/19/22 History geriatric multivitamin-min 1 tablet PO DAILY 01/07/22 01/19/22 History [Multi-Vit 55 Plus] Patient hx anesthesia problems: post op nausea/vomiting (does not want scopolamine) Family hx anesthesia problems: none Results Review: All pre-operative results and documents have been reviewed as part of the pre-operative evaluation. [facility] Past Medical History Medical History Asthma Diverticulitis Frequent PVCs Hyperlipidemia Hypertension Irritable bowel Osteoporosis Pneumonia PVC's (premature ventricular contractions) RBBB Surgical History Surgical History H/O laparoscopy Family History Family History Mother Family history of malignant neoplasm Father Family history of diabetes mellitus in first degree relative Diabetes mellitus Sibling Diabetes mellitus Hypertension Grandparent Cancer Other Family history of malignant neoplasm of breast Social History Social History Smoking status: Never smoker Second hand tobacco smoke exposure: No Alcohol intake: current Drinks per week: 5 Substance use: never Substance use type: does not use Living arrangements: with family Additional living arrangements comments: Gender identity (if verbalized by the patient): Female Sexual Orientation (if Verbalized by the Patient): Straight or Heterosexual Spiritual care concerns: No Agree to blood products: Yes Anes - Eval Final PreProcedure Day of Procedure 01/18/22 14:25 Patient weight: overweight Heart: irregular rhythm Lungs: clear to auscultation Airway: Mallampati scale class III Neurological: alert and oriented Last oral intake: >/= 8 hours ASA classification: III Emergent: no Anesthetic plan: proceed Anesthesia type and monitoring: general ETT and standard monitoring Results Review: All pre-operative results and documents have been reviewed as part of the pre-operative evaluation. Informed Consent: The patient's anesthetic plan and its attendant risks and benefits were discussed with the patient/family/POA. Questions were solicited and answers provided to the satisfaction of the patient/family/POA.
[2022-01-19] VITALS (20 sets, daily range): BP systolic 111–148; BP diastolic 43–94; PULSE 59–81; RESP 11–18; TEMP 35.8–36.9; O2SAT 84–100
--- NOTE | ~2022-01-19 | XR_ITS ---
EXAMINATION: XR hip RT 1V w AP pelvis DATE: 01/19/2022 11:05 INDICATION: Postoperative evaluation following right total hip arthroplasty TECHNIQUE: Anteroposterior and lateral views of the right hip were obtained. COMPARISON: Intraoperative radiograph dated 01/19/2022 at 9:47 AM FINDINGS: Again seen is a newly placed right total hip arthroplasty which appears well seated in near anatomic alignment. The acetabular component is affixed with at least a single screw. Expected small amount of subcutaneous gas in the postoperative bed. No fractures identified. Mild left hip osteoarthritis. IMPRESSION: 1. Right total hip arthroplasty, negative for postoperative purposes. Reviewed, dictated and finalized at location B.
--- NOTE | ~2022-01-19 | XR_ITS ---
EXAMINATION: XR surgery orthopedic DATE: 01/19/2022 10:39 INDICATION: Anterior approach right total hip arthroplasty TECHNIQUE: A single frontal fluoroscopic image of the right hip was obtained during procedure perform ed by Dr. Graves. Radiologist was not present for the imaging or procedure. The amount of fluoroscop y time used during this procedure was 0.8 minutes. COMPARISON: None. FINDINGS: Right total hip arthroplasty which appears well seated in near-anatomic alignment. The acet abular component is affixed with at least a single screw. No fracture. IMPRESSION: 1. Right total hip arthroplasty in expected position. See procedure note for further detail. Reviewed, dictated and finalized at location B. IMPRESSION: 1. Right total hip arthroplasty in expected position. See procedure note for fu rther detail.
[2022-01-19] MEDS: LACTATED RINGERS 1,000 ML 30 ML IV CONT ×2 (06:30→11:12)
[2022-01-19] MEDS: ACETAMINOPHEN 500 MG TABLET 1000 MG PO ×2 (06:34→17:09)
[2022-01-19] MEDS: TRANEXAMIC ACID 1,000MG/ISO100 1,000 MG/100 ML BAG 200 MG IVPB (06:35)
--- NOTE | 2022-01-19 07:07 | WPDHPUPDATE1 ---
History and Physical Update Update Date/Time: 01/19/22 07:07 History and Physical has been reviewed, including an updated exam of the patient. There are NO changes in the patient's condition. Risks, benefits, and alternatives have been discussed and questions answered. Patient agrees to proceed with procedure.
[2022-01-19] MEDS: ceFAZolin 2 GM/D5W 50 ML 2 GM/50 ML BAG IVPB (07:34)
[2022-01-19] MEDS: ceFAZolin SODIUM 1 GM VIAL 3 GM IRRIGATION (08:09)
[2022-01-19] MEDS: ceFAZolin SODIUM 1 GM VIAL IV PUSH (10:33)
[2022-01-19] MEDS: TRANEXAMIC ACID 1,000 MG/10 ML AMPUL 1000 MG IV PUSH (10:35)
--- NOTE | 2022-01-19 10:52 | P.OP_ITS ---
Procedure Note - Detailed Date of Procedure 01/19/22 Pre-op Diagnosis Right Hip Osteo Arthritis Post-op Diagnosis Same Procedure Performed Direct anterior approach right total hip arthroplasty Surgeon Darci Graves MD [employer] Momo Anesthesia General Description of Procedure Patient was brought to the operating room and general anesthesia was administered. She received 2 g Ancef weight based vancomycin 1 g of tranexamic acid preoperatively. Boots were applied the feet padded and [facility] the right hip transfer prepped and draped usual fashion. A 10 cm longitudinal incision was made 3 cm lateral to the ASIS. Fascia over the tensor fascia toshia was incised and elevated off the anterior 1/2 the TFL. Crossing branches of ascending lateral femoral circumflex vessels were ligated with suture and divided. Inverted T capsulotomy was performed after elevating the gluteus minimus off the lateral capsule. Femoral neck osteotomy made according to preoperative templating. Acetabulum was exposed labrum excised. Leg was externally rotated extended and the interval between conjoined tendon and piriformis incised allowing the piriformis to flip and the conjoined tendon to partially recessed. With the leg back in the horizontal position the acetabulum was exposed and prepared. We reamed to 51 mm and impacted the 52 mm pinnacle cup which obtained an excellent press fit. A screw was placed in the superior ilium also. Thirty-six inner diameter liner was impacted without difficulty. The cup was placed at 40? of abduction and anteversion referenced off the anterior posterior acetabular ramírez. Anterior superior acetabular osteophyte was removed. Femur was externally rotated extended and the femur was broached up to a size 6. On trialing we can see that her neck cut was still little bit too long and we gradually countersunk this to the appropriate height such that with a minus 1.5 head we had equal offset and leg lengths. There was normal stability at this point with appropriate Shuck. The size 6 Actis high offset stem was seated without difficulty and the 1.5 x 36 mm diameter ceramic head impacted on the clean and dried trunnion hip reduced stability and soft tissue tension reconfirmed to be appropriate. Capsule was reapproximated with 2. Vicryl superiorly. Fascia toshia was closed with running 1. Vicryl drain in the subcu layer skin closed with 2 subcutaneous Vicryl and glue EBL was 300 cc. Additional g of Ancef and 1 more g of tranexamic acid were given time wound closure. No known complications. Implants Depuy per Estimated Blood Loss 300 Drains Yes Packing No Pathology None sent Complications No immediate complications Condition Stable Disposition PACU
[2022-01-19] MEDS: NALOXONE HCL 0.4 MG/ML VIAL IV PUSH (11:20)
[2022-01-19] MEDS: fentaNYL CITRATE INJ (*CRX) 100 MCG/2 ML VIAL 25 MCG IV PUSH ×7 (11:33→12:17)
--- NOTE | 2022-01-19 11:40 | SUR.PHASEI ---
1112 PATIENT SATS IN 80'S; JAW THRUST PER DR. MCCORMICK. 1120 PATIENT SUCTIONED X 1; NARCAN GIVEN 0.4 MG IV. PATIENT AWAKENED, ABLE TO SUSTAIN SATS IN 90'S. AIRWAY REMOVED.
--- NOTE | 2022-01-19 11:46 | SUR.PHASEI ---
LAB HERE TO DRAW LABS.
[2022-01-19] MEDS: ONDANSETRON INJ 4 MG/2 ML VIAL IV PUSH ×2 (12:35→14:36)
--- NOTE | 2022-01-19 13:50 | SUR.PHASEI ---
6683 DR. GERMAN NOTIFIED RE: FREQUENT PVC'S. NO INTERVENTIONS ORDERED.
--- NOTE | 2022-01-19 14:10 | ADMGEN ---
This patient, Anabela Eaton, was admitted to Medical Room 260-. Patient/family oriented to hospital policies and general routines including ID bracelet, bed and alarms, visiting hours, pain management, procedures, bathroom and other care routines, personal items, smoking policy, room service/diet, and visiting hours. Information on how to activate the Rapid Response Team has been discussed. Patient/Family are encouraged to report perceived risks to care and to ask questions if they do not understand what they are told or what they should do.
[2022-01-19] MEDS: SODIUM CHLORIDE 0.9% IV 1,000 ML 125 ML IV CONT (14:36)
[2022-01-19] MEDS: oxyCODONE HCL (*CRX) 5 MG TAB IR PO ×2 (16:15→21:15)
[2022-01-19] MEDS: SENNA/DOCUSATE SODIUM TABLET 2 TAB PO (16:15)
[2022-01-19] MEDS: FAMOTIDINE 20 MG TABLET PO (21:14)
[2022-01-20] VITALS: PULSE 84
[2022-01-20] MEDS: ACETAMINOPHEN 500 MG TABLET 1000 MG PO ×3 (00:06→11:38)
[2022-01-20] MEDS: oxyCODONE HCL (*CRX) 5 MG TAB IR PO ×4 (00:39→12:44)
[2022-01-20 03:31] VITALS: BP 122/66; PULSE 89; RESP 18; TEMP 36.4; O2SAT 95
[2022-01-20 04:00] VITALS: PULSE 81
[2022-01-20 05:53] LABS: Basophils Percent Auto 0.2 % (0.2-1.2); Eosinophils Percent Auto 0.1 % (0-4.4); Hematocrit 31.5 % (37.0-47.0); Hemoglobin 10.3 g/dL (12.0-15.0); Immature Granulocyte Absolute 0.03 K/mm3 (0.00-0.031); Immature Granulocyte Percent A 0.2 % (0-0.5); Lymphocytes Absolute Auto 1.63 K/mm3 (0.9-3.2); Lymphocytes Percent Auto 11.9 % (18.3-44.2); Mean Corpuscular HGB Conc 32.7 g/dl (32-36); Mean Corpuscular Hemoglobin 32.3 pg (26-34); Mean Corpuscular Volume 98.7 fl (80-100); Mean Platelet Volume 10.7 fl (7.4-10.4); Monocytes Absolute Auto 1.5 K/mm3 (0.1-0.6); Monocytes Percent Auto 10.9 % (2.6-8.5); Neutrophils Absolute Auto 10.5 K/mm3 (1.3-6.7); Neutrophils Percent Auto 76.7 % (45.5-73.1); Platelet Count Result 204 k/mm3 (150-375); Red Blood Count 3.19 M/mm3 (4.2-5.4); Red Cell Distribution Width 12.2 % (11.5-14.5); White Blood Count 13.7 K/mm3 (4.5-10.0)
[2022-01-20 06:03] LABS: Anion Gap 3 mmol/L (8-16); Blood Urea Nitrogen 13 mg/dL (7-17); Calcium 8.4 mg/dL (8.4-10.2); Carbon Dioxide 27 mmol/L (22-30); Chloride 103 mmol/L (98-107); Estimated CRCL calculation 71 ml/min; Estimated Glomerular Filt Rate > 60; Glucose 117 mg/dL (65-110); Sodium 133 mmol/L (137-145)
--- NOTE | 2022-01-20 07:19 | PM.PNORT ---
Subjective Subjective Date/Time Seen: 01/20/22 07:19 postop day 1 patient is alert afebrile vital signs are stable. Morning labs are noted. Patient up walking with physical therapy yesterday. Pain overall is well controlled. Her drain is out. Dressing is dry. Neurovascular she is intact. Overall she is doing very well. She is anxious to go home. We will plan on patient working with physical therapy and will discharge her home later today. Objective Data Vital Signs Vital Signs: Vital Signs - 24 hr 01/19/22 11:12 01/19/22 11:25 01/19/22 11:40 Temperature 36.2 C L Pulse Rate 70 72 62 Respiratory Rate 14 14 13 Blood Pressure 111/47 L 131/67 128/65 Pulse Oximetry 84 L 100 100 01/19/22 11:55 01/19/22 12:10 01/19/22 12:25 Temperature Pulse Rate 59 L 71 73 Respiratory Rate 11 L 18 18 Blood Pressure 130/69 125/68 145/94 H Pulse Oximetry 100 100 93 01/19/22 12:40 01/19/22 12:55 01/19/22 13:10 Temperature Pulse Rate 77 63 76 Respiratory Rate 11 L 11 L 11 L Blood Pressure 140/57 L 127/57 L 142/64 H Pulse Oximetry 92 93 97 01/19/22 13:25 01/19/22 14:00 01/19/22 14:15 Temperature 36.3 C L 36.3 C L Pulse Rate 69 75 70 Respiratory Rate 11 L 16 12 Blood Pressure 123/66 148/60 H 124/60 Pulse Oximetry 97 97 99 01/19/22 14:53 01/19/22 15:10 01/19/22 16:00 Temperature 36.0 C L 36.2 C L Pulse Rate 71 68 Respiratory Rate 14 16 Blood Pressure 131/58 L 116/68 Pulse Oximetry 98 92 97 01/19/22 19:31 01/19/22 20:00 01/19/22 20:12 Temperature 35.8 C L Pulse Rate 78 77 Respiratory Rate 17 Blood Pressure 120/43 L Pulse Oximetry 98 96 01/19/22 23:31 01/20/22 00:00 01/20/22 03:31 Temperature 36.7 C 36.4 C L Pulse Rate 80 84 89 Respiratory Rate 16 18 Blood Pressure 145/48 H 122/66 Pulse Oximetry 100 95 01/20/22 04:00 Temperature Pulse Rate 81 Respiratory Rate Blood Pressure Pulse Oximetry Intake/Output Intake/Output: Intake & Output 01/17/22 01/18/22 01/19/22 01/20/22 23:59 23:59 23:59 23:59 Intake Total 3690 550 Output Total 1255 750 Balance 2435 -200 Meds/Results Medications: Active Medications Generic Name Dose Route Start Last Admin Trade Name Freq PRN Reason Stop Dose Admin Acetaminophen 1,000 mg 01/19/22 18:00 01/20/22 06:21 Acetaminophen 500 Mg Tablet PO 1,000 mg Q6HR CATRACHITO Administration Al Hydrox/Mg Hydrox/Simethicone 30 ml 01/19/22 13:46 Mag Hydrox/Al Hydrox/Simeth 30 Ml Udc PO Q6H PRN Indigestion Albuterol 2 puff 01/19/22 13:46 Albuterol Sulfate (*Sp) Aerosol 1 Puff INHALATION Q4H PRN shortness of breath or wheezing Apixaban 2.5 mg 01/20/22 09:00 Apixaban 2.5 Mg Tablet PO 02/23/22 21:01 Q12HR CATRACHITO Celecoxib 200 mg 01/20/22 09:00 Celecoxib 200 Mg Capsule PO DAILY CATRACHITO Cephalexin HCl 500 mg 01/20/22 12:00 Cephalexin 500 Mg Capsule PO Q6HR CATRACHITO Famotidine 20 mg 01/19/22 21:00 01/19/22 21:14 Famotidine 20 Mg Tablet PO 20 mg Q12HR CATRACHITO Administration Hydrochlorothiazide 25 mg 01/20/22 09:00 Hydrochlorothiazide 25 Mg Tablet PO QAM CATRACHITO Hydroxyzine HCl 50 mg 01/19/22 13:46 Hydroxyzine Hcl 25 Mg Tablet PO Q4H PRN Itching Vancomycin HCl 1,000 mg in 250 mls @ 250 mls/hr 01/19/22 19:00 01/20/22 06:21 Vancomycin 1,000 Mg/D5w 250 Ml IVPB 01/20/22 07:59 200 mls/hr Q12H CATRACHITO Administration Cefazolin Sodium 1 gm in 50 mls @ 100 mls/hr 01/19/22 16:00 01/20/22 00:35 Ancef 1 Gm/D5w 50 Ml Pm IVPB 01/20/22 08:29 Infused Q8H CATRACHITO Infusion Losartan Potassium 100 mg 01/20/22 09:00 Losartan Potassium 100 Mg Tablet PO DAILY [facility] Montelukast Sodium 10 mg 01/20/22 09:00 Montelukast Sodium 10 Mg Tablet PO DAILY [facility] Morphine Sulfate 2 mg 01/19/22 13:46 Morphine Sulfate (*Crx) 2 Mg/Ml Inj IV PUSH Q3H PRN Pain Rated 7-10 Naloxone HCl 0.1 mg 01/19/22 13:46 Naloxone Hcl 0.4 Mg/Ml
--- NOTE | 2022-01-20 07:24 | PM.DS ---
DS: Admitting Diagnosis Discharge Date 01/20 Admitting Diagnosis Right hip DJD DS: Summary Hospital Course Hospital Course: Stable Time Spent with Patient Time attestation: Total time spent providing and/or coordinating discharge services: 66-year-old female who underwent right anterior total hip arthroplasty on 01/19. Underwent the procedure without complications. Postoperatively she has been afebrile vital signs were unstable. She has been on telemetry postoperatively without any significant changes. She is weight-bearing as tolerated. Patient was up walking with physical therapy the day of surgery is comfortable. Pain is well controlled with scheduled Tylenol as well as oxycodone. She is on a 10 day course of Celebrex as well. She will be discharged to home on 01/20. Patient was calm on 2 week course of Keflex to her history of a oxacillin sensitive nasal swab. Patient's sedation is dry. Overall she is doing very well. She would advise any questions or concerns she is to call the office otherwise we will see her at her appointment dates. Patient will also go home on Senokot and MiraLax for constipation. DS: Data Data Completed and Pending Labs on day of discharge: Labs from last 24 hours 01/20/22 01/20/22 01/19/22 05:11 05:11 06:32 WBC 13.7 H RBC 3.19 L Hgb 10.3 L D Hct 31.5 L MCV 98.7 MCH 32.3 MCHC 32.7 RDW 12.2 Plt Count 204 MPV 10.7 H Immature Gran % (Auto) 0.2 Neut % (Auto) 76.7 H Lymph % (Auto) 11.9 L Alfalfa % (Auto) 10.9 H Eos % (Auto) 0.1 Baso % (Auto) 0.2 Lymph # (Auto) 1.63 Alfalfa # (Auto) 1.5 H Eos # (Auto) 0.0 Baso # (Auto) 0.0 Abs Immat Gran (auto) 0.03 Absolute Neuts (auto) 10.5 H Absolute Nucleated RBC 0.0 Nucleated RBC % 0.0 Sodium 133 L Potassium 4.0 Chloride 103 Carbon Dioxide 27 Anion Gap 3 L BUN 13 D Creatinine 0.80 Estim Creat Clear Calc 71 Estimated GFR > 60 Glucose 117 H Calcium 8.4 Blood Type A Positive Antibody Screen Positive Antibody Identification Pending Antigen Identification Pending MAUREEN, IgG Interpret Pending MAUREEN, Poly Interpret Pending MAUREEN, Complement Interp Pending Discharge Plan Discharge Patient Disposition: Home, Self-Care Discharge Instructions: DARCI GRAVES M.D [facility], [address] [address] POST-OPERATIVE DISCHARGE INSTRUCTIONS ANTERIOR TOTAL HIP ARTHROPLASTY 1. Move toes/feet up and down every hour while awake. 2. Be up walking every hour while awake. 3. Use cane in hand opposite of side of hip surgery or walker as comfort allows. Avoid sitting in a chair unless eating, receiving visitors or using the toilet. 4. When resting, lie on back with leg elevated above heart to minimize swelling. Significant swelling could indicate a blood clot and if this occurs, call the office (or go to the ER) to have a venous ultrasound performed. 5. Wound Care: Keep dry sponge on wound for 2 weeks. Use minimal tape. 6. May shower with dressing off. Patient Instructions: Apixaban (By mouth), Pain Management (DC), Narcotic Safety (DC), Precautions after Total Joint Replacement Surgery (DC), Joint Replacement Surgery (DC), Total Hip Replacement (GEN), Anterior Hip Replacement (DC) Follow-up/Referrals: Darci Graves MD [Physician] - Keep Reg. Scheduled Appt. Discharge Medications: New acetaminophen 500 mg Tablet 1,000 mg PO Q6HR Qty: 90 RF: 0 Eliquis 2.5 mg Tablet 2.5 mg PO Q12HR Qty: 69 RF: 0 celecoxib [Celebrex] 200 mg Capsule 200 mg PO DAILY Qty: 10 RF: 0 cephalexin 500 mg Capsule 500 mg PO Q6HR Qty: 48 RF: 0 sennosides-docusate sodium [Senokot-S] 8.6-50 mg Tablet 2 tab-cap PO BID Qty: 60 RF: 0 oxycodone 5 mg Tablet 5 mg PO Q4HR Qty: 40 RF: 0 polyethylene glycol 3350 [Miralax] 17 gram Powder In Packet
[2022-01-20 08:00] VITALS: PULSE 83
[2022-01-20] MEDS: CHOLECALCIFEROL 1,000 UNITS TABLET 2000 UNITS PO (08:16)
[2022-01-20] MEDS: polyethylene glycoL 3350 17 GM POWD.PACK PO (08:16)
[2022-01-20] MEDS: FAMOTIDINE 20 MG TABLET PO (08:16)
[2022-01-20] MEDS: CELECOXIB 200 MG CAPSULE PO (08:16)
[2022-01-20] MEDS: SENNA/DOCUSATE SODIUM TABLET 2 TAB PO (08:17)
[2022-01-20] MEDS: MONTELUKAST SODIUM 10 MG TABLET PO (08:17)
[2022-01-20] MEDS: hydroCHLOROthiazide 25 MG TABLET PO (08:17)
[2022-01-20] MEDS: LOSARTAN POTASSIUM 100 MG TABLET PO (08:17)
[2022-01-20] MEDS: APIXABAN 2.5 MG TABLET PO (08:18)
[2022-01-20 08:25] VITALS: RESP 18; O2SAT 95
[2022-01-20 10:40] VITALS: BP 112/66; PULSE 77; RESP 14; TEMP 36.6; O2SAT 100
[2022-01-20] MEDS: CEPHALEXIN 500 MG CAPSULE PO (11:38)
== END 2022-01-20 12:55 | disposition home or self-care (01) ==
LOC: ANHSURGERY 06:11 → ANH2MED 13:54
PROVIDERS: Physician Assistant Surgical; PCP Family Medicine; Visit Provider Orthopaedic Surgery
PROC: (CPT 27130; principal; 2022-01-19 07:30)
DX: M16.11 Unilateral primary osteoarthritis, right hip (principal); Z79.82 Long term (current) use of aspirin; Z79.51 Long term (current) use of inhaled steroids; J45.909 Unspecified asthma, uncomplicated; I10 Essential (primary) hypertension; E78.5 Hyperlipidemia, unspecified; K58.9 Irritable bowel syndrome, unspecified; M81.0 Age-related osteoporosis without current pathological fracture; I45.10 Unspecified right bundle-branch block; I49.3 Ventricular premature depolarization
CPT/HCPCS: 27130; 36415; 73501; 80048; 85025; 86850; 86870; 86880; 86900; 86901; 86902; 86922; 86971; 97110; 97116; 97161; 97165; 97530; 97535; A9270; C1776; J0171; J0690; J1100; J1170; J1885; J2250; J2270; J2310; J2405; J2704; J2710; J2795; J3010; J3370; J7030; J7120

== ENCOUNTER 2022-03-13 11:01 | Emergency (ER) | payer MEDICARE, SELFPAY ==
[2022-03-13 11:30] VITALS: BP 155/75; PULSE 77; RESP 18; TEMP 36.6; O2SAT 100
--- NOTE | 2022-03-13 11:41 | ED.ABDPAIN ---
HPI - Abdominal Pain General Chief Complaint: Abdominal Pain Stated Complaint: Abdominal Pain Time Seen by Provider: 03/13/22 11:41 Source: patient Mode of arrival: ambulatory Limitations: no limitations History of Present Illness HPI narrative: 66-year-old female with history of diverticulitis presents today with complaint of abdominal cramping, feeling of constipation and bloating that started this morning. Reports that this is always how her diverticulitis symptoms started. No history of a bowel perforation. Has been to the ER and had CT scans in the past. States sometimes her PCP just prescribed antibiotics outpatient to treat diverticulitis. She denies fever chills. She denies nausea vomiting diarrhea. Denies urinary symptoms. States that she did drink MiraLAX and did take a dicyclomine this morning and was able to have small bowel movement and cramping has improved. All systems reviewed and negative except as noted above. Related Data Home Medications Medication Instructions Recorded Confirmed calcium carbonate 600 mg calcium 1,400 mg PO DAILY 10/31/19 03/13/22 (1,500 mg) tablet (Calcium) cholecalciferol (vitamin D3) 50 50 mcg PO DAILY 11/22/21 03/13/22 mcg (2,000 unit) capsule Lactobacillus acidophilus 10 10,000 mmu cells PO DAILY 01/07/22 03/13/22 billion cell capsule (Probiotic) geriatric multivitamin-min 1 tablet PO DAILY 01/07/22 03/13/22 Allergies Allergy/AdvReac Type Severity Reaction Status Date / Time Penicillins Allergy Unknown Rash Verified 03/13/22 11:14 Review of Systems Review of Systems: CONSTITUTIONAL: Denies fever, chills, or sweats. EYES: Denies visual changes, redness, or discharge. ENT: Denies rhinorrhea, congestion, sore throat, or otalgia. CARDIOVASCULAR: Denies chest pain, palpitations, or edema. RESPIRATORY: Denies cough or dyspnea. GASTROINTESTINAL: Reports abdominal pain. Denies nausea, vomiting, or diarrhea. GENITOURINARY: Denies dysuria or hematuria. SKIN: Denies rash or itching. MUSCULOSKELETAL: Denies back pain, joint pain, or myalgia. NEUROLOGIC: Denies headache, numbness, or weakness. PSYCHIATRIC: Denies anxiety or depression. All other systems reviewed are negative, except as documented in HPI. [facility] Past Medical History Medical History (Updated 03/13/22 @ 11:54 by Jeny Levin NP) Asthma Diverticulitis Frequent PVCs Hyperlipidemia Hypertension Irritable bowel Osteoporosis Pneumonia PVC's (premature ventricular contractions) RBBB Surgical History Surgical History (Updated 01/20/22 @ 07:23 by CELSO Alonzo) H/O laparoscopy H/O total hip arthroplasty Family History Family History Mother Family history of malignant neoplasm Father Family history of diabetes mellitus in first degree relative Diabetes mellitus Sibling Diabetes mellitus Hypertension Grandparent Cancer Other Family history of malignant neoplasm of breast Social History Social History Smoking status: Never smoker Second hand tobacco smoke exposure: No Alcohol intake: current Drinks per week: 8 Substance use: never Substance use type: does not use Additional living arrangements comments: Gender identity (if verbalized by the patient): Female Sexual Orientation (if Verbalized by the Patient): Straight or Heterosexual Spiritual care concerns: No Agree to blood products: Yes Comments At time of signature, agree with nursing past medical, surgical, social and family history. There is no relevant family history pertinent to the presenting complaint. Exam Narrative: GENERAL: This is a well-nourished, well-developed patient, in no apparent distress. HEAD: normocephalic, atraumatic. EYES: PERRL. Sclera clear/white. Vision is grossly intact. EARS: External ears normal NOSE: External nose normal NECK: Neck supple, non-tender w
== END 2022-03-13 12:17 | disposition home or self-care (01) ==
PROVIDERS: Emergency Provider Nurse Practitioner Family; PCP Family Medicine
DX: R10.32 Left lower quadrant pain (principal); Z87.19 Personal history of other diseases of the digestive system; J45.909 Unspecified asthma, uncomplicated; E78.5 Hyperlipidemia, unspecified; I10 Essential (primary) hypertension; M81.0 Age-related osteoporosis without current pathological fracture; Z96.641 Presence of right artificial hip joint
CPT/HCPCS: 99213; G0463

== ENCOUNTER → 2022-03-15 13:59 | Outpatient (CLI) | payer MEDICARE, SELFPAY ==
--- NOTE | ~2022-03-15 | XR_ITS ---
EXAMINATION: XR hip RT min 3V w AP pelvis DATE: 03/15/2022 14:25 INDICATION: Sacrococcygeal disorders, not elsewhere classified. TECHNIQUE: An anteroposterior pelvis and 2 views of right hip were obtained. COMPARISON: None. FINDINGS: There is a total right hip arthroplasty in near-anatomic alignment. No fracture. No peripro sthetic lucency to suggest loosening or infection. There is moderate left hip osteoarthritis. There i s moderate lumbar spondylosis. IMPRESSION: 1. Total right hip arthroplasty in near-anatomic alignment. 2. Moderate left hip osteoarthritis. Reviewed, dictated and finalized at location A.
--- NOTE | ~2022-03-15 | XR_ITS ---
EXAMINATION: XR sacrum coccyx min 2V DATE: 03/15/2022 14:25 INDICATION: Sacrococcygeal disorders, not otherwise classified. Tailbone pain after fall. TECHNIQUE: 3 views of the sacrum and coccyx were obtained. COMPARISON: CT abdomen and pelvis 04/03/2021 FINDINGS: Bone alignment is normal. No fracture. There is mild osteoarthritis of the sacroiliac joint s. Partially visualized is a total right hip arthroplasty. There is moderate left hip osteoarthritis. There is moderate lumbar spondylosis. IMPRESSION: 1. No fracture. Reviewed, dictated and finalized at location A. IMPRESSION: 1. No fracture.
== END ==
PROVIDERS: PCP Family Medicine; Visit Provider Physician Assistant
DX: M53.3 Sacrococcygeal disorders, not elsewhere classified (principal); W19.XXXA Unspecified fall, initial encounter; M16.12 Unilateral primary osteoarthritis, left hip; Z96.641 Presence of right artificial hip joint
CPT/HCPCS: 72220; 73502

== ENCOUNTER → 2022-03-22 12:45 | Outpatient (CLI) | payer MEDICARE, SELFPAY ==
--- NOTE | ~2022-03-22 | CT_ITS ---
EXAMINATION: CT abdomen pelvis wo con DATE: 03/22/2022 13:03 INDICATION: Left lower quadrant abdominal pain. History of diverticulitis. TECHNIQUE: Computed tomography (CT) of the abdomen and pelvis was performed without intravenous contr ast. Automated exposure control and iterative reconstruction technique were employed. Exam dose: 907 .30 mGy-cm total exam DLP. COMPARISON: 04/03/2021 CT abdomen pelvis FINDINGS: There is mild discoid atelectasis at the lung bases. Normal heart size. No pericardial or pleural effusion. Small sliding hiatal hernia. There is diffuse hepatic steatosis. No hepatic, splenic, pancreatic, adrenal or renal space-occupying mass lesion is evident on this limited noncontrast examination. No bile duct or pancreatic duct dilatation. No urinary tract calculus or hydroureteronephrosis. Normal caliber of the abdominal aorta, mild calcification. No periaortic or aortocaval or iliac or ob turator lymphadenopathy. No ascites. There are multiple diverticula of the sigmoid colon; no evidence of diverticulitis. There is soft tis jeremy thickening of the wall of the sigmoid colon and mild pericholecystic fat stranding. Diffusion marta gnosis includes nonspecific colitis and uncomplicated diverticulitis. There are some small pericolic lymph nodes in the sigmoid area, also present on 04/03/2021. Status post right hip arthroplasty since 04/03/2021. Left hip osteoarthritis. Hemangioma of T11 vertebral body. IMPRESSION: Nonspecific colitis versus mild uncomplicated diverticulitis of sigmoid colon, mild comp ared to 04/03/2021 Hepatic steatosis Small sliding hiatal hernia Reviewed, dictated and finalized at Location A. Reviewed, dictated and finalized at location A. IMPRESSION: Nonspecific colitis versus mild uncomplicated diverticulitis of si gmoid colon, mild compared to 04/03/2021 Hepatic steatosis Small sliding hiatal hernia
== END ==
PROVIDERS: PCP Family Medicine; Visit Provider Nurse Practitioner Family
DX: R10.32 Left lower quadrant pain (principal); R91.8 Other nonspecific abnormal finding of lung field; Z87.19 Personal history of other diseases of the digestive system; K52.9 Noninfective gastroenteritis and colitis, unspecified; K76.0 Fatty (change of) liver, not elsewhere classified; K44.9 Diaphragmatic hernia without obstruction or gangrene
CPT/HCPCS: 74176

== ENCOUNTER → 2022-08-30 15:19 | Outpatient (CLI) | payer MEDICARE, SELFPAY ==
--- NOTE | ~2022-08-30 | XR_ITS ---
XR ankle LT min 3V DATE: 08/30/2022 15:41 INDICATION: Left ankle pain TECHNIQUE: 4 views COMPARISON: None FINDINGS: There is mild lateral soft tissue swelling. No fracture or dislocation of the ankle or dis ruption of the ankle mortise. There is slight plantar calcaneal enthesopathy. IMPRESSION: Mild lateral soft tissue swelling Slight calcaneal enthesopathy Reviewed, dictated and finalized at location A. ICULUM AND ASSESSMENT DIRECTOR
== END ==
PROVIDERS: PCP Surgery; Visit Provider Nurse Practitioner Family
DX: M25.572 Pain in left ankle and joints of left foot (principal); M79.89 Other specified soft tissue disorders; M77.32 Calcaneal spur, left foot
CPT/HCPCS: 73610

== ENCOUNTER → 2022-11-03 13:42 | Outpatient (CLI) | payer MEDICARE, SELFPAY ==
--- NOTE | ~2022-11-03 | MR_ITS ---
EXAMINATION: MR ankle LT wo con DATE: 11/03/2022 14:20 INDICATION: Left ankle pain. TECHNIQUE: Magnetic resonance imaging (MRI) of the left ankle was performed without intravenous contr ast. Sequences included sagittal PD-weighted FS FSE, sagittal PD-weighted FSE, coronal PD-weighted FS FSE, coronal PD-weighted FSE, axial PD-weighted FS FSE, and axial PD-weighted FSE. COMPARISON: Left ankle radiographs 08/30/2022 FINDINGS: Medial ankle ligaments: The superficial and deep components of the deltoid ligament are normal. Lateral ankle ligaments: There are changes of prior sprains of anterior talofibular ligament and anterior tibiofibular ligamen t by catheterized increased signal intensity. Calcaneofibular ligament, posterior talofibular ligamen t, and posterior tibiofibular ligament are normal. Tendons: The medial and anterior ankle tendons are normal. The peroneal tendons are normal. Achilles tendon is normal. Plantar fascia: Normal. Bones/other: There is an oblique fracture of distal fibula with medial aspect of the fracture line 3.7 cm proximal to the level of the tibial plafond. The distal fracture fragment demonstrates one cortical width lat eral displacement. Callus formation and edema-like signal intensity are noted. There is partial-thick ness cartilage loss of medial talar dome with mild subchondral edema-like marrow signal intensity. Th ere is moderate osteoarthritis of second tarsometatarsal joint and mild osteoarthritis of some of the other midfoot joints. Fluid: There are small ankle and subtalar joint effusions. IMPRESSION: 1. Healing oblique fracture of distal fibula. Reviewed, dictated and finalized at location A. L OFFSET PRINTER
== END ==
PROVIDERS: PCP Family Medicine; Visit Provider Family Medicine
DX: M25.572 Pain in left ankle and joints of left foot (principal); S82.832D Other fracture of upper and lower end of left fibula, subsequent encounter for closed fracture with routine healing; T14.90XD Injury, unspecified, subsequent encounter
CPT/HCPCS: 73721

== ENCOUNTER 2023-03-28 17:06 | Observation (INO) | payer MEDICARE, SELFPAY ==
--- NOTE | ~2023-03-28 | CT_ITS ---
EXAMINATION: CT lumbar spine wo con DATE: 03/28/2023 20:16 INDICATION: fall, poss lumbar fxs?; no focal tenderness . TECHNIQUE: Computed tomography (CT) of the lumbar spine was performed without intravenous contrast. A utomated exposure control and iterative reconstruction technique were employed. The dose-length produ ct was 1287.34 mGy-cm. COMPARISON: X-ray lumbar spine same date; CT abdomen and pelvis 03/22/2022. FINDINGS: Lumbar scoliosis. 5 nonrib-bearing lumbar-type vertebral bodies. Pedicles intact. Mild grad e 1 retrolisthesis at L2-3, stable. Mild anterior wedge deformity at L4. Moderate height loss at L5, with fracture lines that minimally involve the posterior cortex, no retropulsion. Multilevel degenera tive disc disease and facet arthropathy. No severe central canal or neural foraminal narrowing. Old s acral fracture. . IMPRESSION: 1. Very mild wedge compression fracture at L4. 2. L5 burst fracture with moderate height loss and no retropulsion. 3. Both fractures may represent acute fractures, particularly if accompanied by acute pain/tenderness . Reviewed, dictated and finalized at location K. IMPRESSION: 1. Very mild wedge compression fracture at L4. 2. L5 burst fracture with moderate height loss and no retropulsion. 3. Both fractures may represent acute fractures, particularly if accompanied by acute pain/tenderness.
--- NOTE | ~2023-03-28 | MR_ITS ---
EXAMINATION: MR knee RT wo con DATE: 03/30/2023 08:31 INDICATION: Fall. TECHNIQUE: Magnetic resonance imaging (MRI) of the right knee was performed without intravenous contr ast. Sequences included axial PD-weighted FS FSE, coronal PD-weighted FSE and PD-weighted FS FSE, sag ittal PD-weighted FSE, and sagittal T2-weighted FS FSE. COMPARISON: Right knee radiographs 03/28/2023 FINDINGS: Medial compartment: Medial meniscus is normal. There is shallow partial-thickness cartilage loss of tibial condyle. There is extensive partial thickness cartilage loss of femoral condyle. There is full-thickness cartilage loss of femoral condyle involving the central articular surface. There are tiny osteophytes. Lateral compartment: There is a radial tear involving posterior horn and body of lateral meniscus. There is partial-thickn ess cartilage loss of tibial condyle. There is focal full-thickness cartilage loss of tibial condyle involving the posterior articular surface with mild subchondral edema-like marrow signal intensity. T here is extensive partial thickness cartilage loss of femoral condyle, deep at the central articular surface. There are tiny osteophytes. Patellofemoral compartment: There is full-thickness cartilage loss of patellar medial facet, median ridge, and lateral facet with mild subchondral edema-like marrow signal intensity. There is partial-thickness cartilage loss of tr ochlea, deep at the central trochlea. There are tiny osteophytes. Ligaments and tendons: There is a complete tear of anterior cruciate ligament. Posterior cruciate ligament is intact. There are changes of prior sprains of medial collateral ligament and fibular collateral ligament characteri zed by thickening and increased signal intensity proximally. Edema in these areas is indeterminate fo r acuity and may be from a different source. There is mild patellar tendinopathy. Fluid: There is a large knee joint effusion. There is a moderate-sized ruptured Ford's cyst. IMPRESSION: 1. Complete tear of anterior cruciate ligament. 2. Severe tricompartmental chondrosis. 3. Tear of lateral meniscus. 4. Large knee joint effusion. 5. Ruptured moderate-sized Ford's cyst. Reviewed, dictated and finalized at location A.
--- NOTE | ~2023-03-28 | CT_ITS ---
EXAMINATION: CT cervical spine wo con DATE: 03/28/2023 18:31 INDICATION: fall, back pain TECHNIQUE: Computed tomography (CT) of the cervical spine was performed without intravenous contrast. Automated exposure control and iterative reconstruction technique were employed. The dose-length pro duct was 382.70 mGy-cm. COMPARISON: None. FINDINGS: Vertebral Body Alignment: Trace retrolisthesis at C6-7. Trace anterolisthesis at C7-T1. Both are pres umably on a degenerative basis. Reversed cervical lordosis, centered at C4-5. Craniocervical and atlantoaxial alignment: Moderate degenerative change including moderate degenerati ve change at the left C1-2 articulation. Alignment intact. Osseous structures/fracture: No evidence of a lytic or blastic process in the visualized spine. No e vidence of acute fracture. Vertebral body and facet fusion at C2-C4. Cervical soft tissues: The paraspinal soft tissues planes are maintained. Degenerative changes: Multilevel severe degenerative disc disease. Multilevel facet arthropathy. IMPRESSION: No acute fracture or traumatic malalignment in the cervical spine. Reviewed, dictated and finalized at location K.
--- NOTE | ~2023-03-28 | CT_ITS ---
EXAMINATION: CT brain wo con DATE: 03/28/2023 18:29 INDICATION: fall, head injury . TECHNIQUE: Computed tomography (CT) of the head was performed without intravenous contrast. The mA wa s adjusted according to patient size. Iterative reconstruction technique was employed. The dose-lengt h product was 605.33 mGy-cm. COMPARISON: 11/05/2018. FINDINGS: No acute intracranial hemorrhage or extra-axial fluid collection. No hydrocephalus, mass, or herniation. No acute ischemic infarct. Unremarkable dural venous sinus attenuation. No acute osseous abnormality. Small right posterior scalp contusion. The aerated spaces are clear. IMPRESSION: No acute intracranial process. Reviewed, dictated and finalized at location K.
--- NOTE | ~2023-03-28 | CT_ITS ---
EXAMINATION: CT pelvis wo con DATE: 03/28/2023 20:18 INDICATION: X-ray right hip, same date TECHNIQUE: Computed tomography (CT) of the pelvis was performed without intravenous contrast. Automat ed exposure control and iterative reconstruction technique were employed. The dose-length product was 555.73 mGy-cm. COMPARISON: X-ray right hip FINDINGS: Diverticulosis. Diffuse chronic sigmoid wall thickening. Uncomplicated right hip arthroplas ty. Symmetric SI joints. Moderate left hip osteoarthritis. Nondisplaced right inferior pubic ramus fr acture. Very subtle, nondisplaced right superior pubic ramus fracture. No other osseous fracture dete cted. IMPRESSION: Nondisplaced right obturator ring fractures. Reviewed, dictated and finalized at location K.
--- NOTE | ~2023-03-28 | XR_ITS ---
XR hip RT min 2V 03/28/2023 18:27 Indication: Status post fall. Right hip pain. Procedure: 2 views right hip Comparison: 03/15/2022 Findings: There is a right total hip arthroplasty. There are possible nondisplaced fractures of the r ight superior and inferior pubic rami. Right hip arthroplasty is well seated. No significant soft tis jeremy abnormality. Impression: 1: Possible nondisplaced fractures right superior and inferior pubic rami. Consider correlation with CT. Reviewed, dictated and finalized at location L. Impression: 1: Possible nondisplaced fractures right superior and inferior pubic rami. Cons ider correlation with CT.
--- NOTE | ~2023-03-28 | XR_ITS ---
XR wrist RT min 3V 03/28/2023 18:27 Indication: Right wrist pain Procedure: 4 views right breast Comparison: No prior studies for comparison. Findings: Osteopenia. There is advanced polyarticular osteoarthritis most advanced at the triscaphe j oint. No acute fracture or traumatic malalignment. There are loose bodies along the radial aspect of the triscaphe joint. Impression: 1: No acute fracture. 2: Advanced polyarticular osteoarthritis. Reviewed, dictated and finalized at location L. Impression: 1: No acute fracture. 2: Advanced polyarticular osteoarthritis.
--- NOTE | ~2023-03-28 | CT_ITS ---
EXAMINATION: CT wrist RT wo con DATE: 03/29/2023 21:36 INDICATION: Right wrist injury. TECHNIQUE: Computed tomography (CT) of the right wrist was performed without intravenous contrast. Au tomated exposure control and iterative reconstruction technique were employed. The dose-length produc t was 279.06 mGy-cm. COMPARISON: Right wrist radiograph 03/28/2023 FINDINGS: There is dorsal tilt of lunate, consistent with dorsal intercalated segmental instability. There is a nondisplaced fracture of triquetrum. There is polyarticular osteoarthritis, severe at the triscaphe joint and first carpometacarpal joint and lunocapitate joint. There are dystrophic calcific ations about the carpus. IMPRESSION: 1. Nondisplaced fracture of triquetrum. 2. Dorsal intercalated segmental instability. 3. Polyarticular osteoarthritis. Reviewed, dictated and finalized at location A.
--- NOTE | ~2023-03-28 | XR_ITS ---
XR knee RT 3V 03/28/2023 18:27 INDICATION: Status post fall. Right knee pain. PROCEDURE: 3 views right knee COMPARISON: No prior studies for comparison. FINDINGS: Fracture, dislocation or subluxation is not identified. No significant joint effusion. The soft tissues appear within normal limits. No foreign bodies are identified. IMPRESSION: 1: NO ACUTE BONE OR JOINT ABNORMALITY IDENTIFIED. Reviewed, dictated and finalized at location L.
--- NOTE | ~2023-03-28 | XR_ITS ---
EXAM: XR lumbar spine 2-3V DATE: 03/28/2023 18:27 HISTORY: fall . COMPARISON: CT abdomen and pelvis 03/22/2022. FINDINGS: Incompletely visualized right hip arthroplasty. Moderate lumbar scoliosis. 5 nonrib-bearing lumbar-type vertebral bodies. Pedicles intact. Mild grade 1 retrolisthesis at L2-3, stable. New mild anterior wedge deformity at L4. New moderate height loss at L5. Multilevel degenerative disc disease and facet arthropathy. Old sacral fracture. IMPRESSION: New mild anterior wedge deformity at L4 and moderate height loss at L5, may represent acu te compression fractures, particularly if accompanied by acute pain/tenderness. Reviewed, dictated and finalized at location K. IMPRESSION: New mild anterior wedge deformity at L4 and moderate height loss at L5, may represent acute compression fractures, particularly if accompanied by acute pain/tenderness.
[2023-03-28 17:20] VITALS: BP 132/94; PULSE 75; RESP 18; TEMP 36.6; O2SAT 98
[2023-03-28] MEDS: HYDROmorphone HCL INJ (*CRX) 1 MG/ML SYR 0.5 MG IV PUSH ×2 (19:50→22:20)
--- NOTE | 2023-03-28 19:59 | ED.FALL ---
HPI - Fall General Chief Complaint: Fall Stated Complaint: Fall during pickle ball - right knee pain, HI Time Seen by Provider: 03/28/23 18:30 History of Present Illness HPI Narrative: Patient is a 67-year-old female presenting after a fall. Patient was playing pickle ball when she tripped on her feet as she was walking backwards. States that she fell straight back and tried to catch herself on her hands but was unable to. States that she struck her head and landed on her right hip and lower back. States that she has pain in her right groin and her right wrist. States that it feels like her knee keeps popping out of place when she walks on it but she does not have any pain. She complains of lower back pain over her right buttocks but nothing midline. She denies neck or upper back pain. No chest pain or difficulty breathing. Denies further complaints. Related Data Home Medications Medication Instructions Recorded Confirmed calcium carbonate 600 mg calcium 1,200 mg PO DAILY 10/31/19 03/29/23 (1,500 mg) tablet (Calcium) cholecalciferol (vitamin D3) 50 50 mcg PO DAILY 11/22/21 03/29/23 mcg (2,000 unit) capsule Lactobacillus acidophilus 10 10,000 mmu cells PO DAILY 01/07/22 03/29/23 billion cell capsule (Probiotic) geriatric multivitamin-min 1 tablet PO DAILY 01/07/22 03/29/23 losartan 100 1 tablet PO DAILY 03/29/23 03/29/23 mg-hydrochlorothiazide 25 mg tablet montelukast 10 mg tablet 10 mg PO HS 03/29/23 03/29/23 (Singulair) Allergies Allergy/AdvReac Type Severity Reaction Status Date / Time Penicillins Allergy Unknown Rash Verified 03/21/23 13:50 Review of Systems Review of Systems: All systems reviewed & are unremarkable except as noted in HPI and below PMFSH Past Medical History Medical History (Updated 04/05/23 @ 22:17 by Marian Young MD) Asthma Diverticul disease small and large intestine, no perforati or abscess Diverticulitis Fatty (change of) liver, not elsewhere classified Fracture of triquetrum of right wrist Frequent PVCs Hyperlipidemia Hypertension Irritable bowel Lumbar compression fracture Obstructive sleep apnea (adult) (pediatric) Osteoporosis Overweight (BMI 25.0-29.9) Pelvic ring fracture Pneumonia PVC's (premature ventricular contractions) RBBB SCCA (squamous cell carcinoma) of skin Surgical History Surgical History (Updated 03/31/23 @ 19:16 by Gayle Heredia APRN) H/O laparoscopy H/O total hip arthroplasty Family History Family History (Updated 03/29/23 @ 00:23 by Ann Etienne RN) Mother Family history of malignant neoplasm Father Diabetes mellitus Family history of diabetes mellitus in first degree relative Sibling Diabetes mellitus Hypertension Family history of diabetes mellitus in first degree relative Grandparent Cancer Other Family history of malignant neoplasm of breast Social History Social History Smoking status: Never smoker Second hand tobacco smoke exposure: No Alcohol intake: current Drinks per week: 3 Substance use: never Substance use type: does not use Lack of Transportation: No Lack of Food: Never True Current Housing: I Have Housing Concerned About Future Housing: No Difficulty Paying Gas/Electric Bills: No Difficulty Paying for Meds: No Currently Unemployed: No Education: Bachelor's Degree Difficulty w/ Childcare or Family Care: No Living arrangements: with family Additional living arrangements comments: Occupation/Education: retired Gender identity (if verbalized by the patient): Female Sexual Orientation (if Verbalized by the Patient): Straight or Heterosexual Spiritual care concerns: No Agree to blood products: Yes Exam Narrative: GENERAL: Well-appearing, well-nourished, and in no acute distress. HEAD: Normocephalic, atraumatic. EYES: PERRLA and EOMI. ENT: Nares clear, no rhinorrhea or epista
[2023-03-28 20:48] VITALS: BP 124/58; PULSE 86; RESP 18; O2SAT 97
--- NOTE | 2023-03-28 20:49 | PC.NURSE ---
Pt c/o right wrist, right knee, and right hip pain after she fell playing pickleball. Reassured pt that her wrist and knee xrays do not show any bony abnormalities. Ibrahima wrap applied to right wrist for comfort and provided ice pack. No swelling or obvious deformities noted to wrist, hip, or knee. Informed pt and her that we are currently waiting on CT results at this time. Pain improved after IV dilaudid.
[2023-03-28] MEDS: KETOROLAC 15 MG/ML VIAL (*BKC) IV PUSH (22:20)
[2023-03-28 23:05] LABS: Basophils Percent Auto 0.3 % (0.2-1.2); Eosinophils Percent Auto 0.3 % (0-4.4); Hematocrit 38.6 % (37.0-47.0); Hemoglobin 13.3 g/dL (12.0-15.0); Immature Granulocyte Absolute 0.06 K/mm3 (0.00-0.031); Immature Granulocyte Percent A 0.5 % (0-0.5); Lymphocytes Absolute Auto 1.95 K/mm3 (0.9-3.2); Mean Corpuscular HGB Conc 34.5 g/dl (32-36); Mean Platelet Volume 10.3 fl (7.4-10.4); Monocytes Absolute Auto 0.7 K/mm3 (0.1-0.6); Monocytes Percent Auto 5.9 % (2.6-8.5); Neutrophils Absolute Auto 8.7 K/mm3 (1.3-6.7); Platelet Count Result 187 k/mm3 (150-375); Red Blood Count 4.15 M/mm3 (4.2-5.4); Red Cell Distribution Width 12.4 % (11.5-14.5); White Blood Count 11.5 K/mm3 (4.5-10.0)
[2023-03-28 23:07] VITALS: BP 110/57; PULSE 83; RESP 20; O2SAT 92
[2023-03-28 23:14] LABS: Anion Gap 6 mmol/L (8-16); Blood Urea Nitrogen 18 mg/dL (7-17); Calcium 9.5 mg/dL (8.4-10.2); Carbon Dioxide 30 mmol/L (22-30); Chloride 103 mmol/L (98-107); Estimated CRCL calculation 58 ml/min; Estimated Glomerular Filt Rate > 60; Glucose 108 mg/dL (65-110); Potassium 3.6 mmol/L (3.4-5.0); Sodium 139 mmol/L (137-145)
--- NOTE | 2023-03-28 23:40 | ECG_ITS ---
Measurements Intervals [place] Rate: 80 P: 75 MT: 156 QRS: 41 QRSD: 145 T: 7 QT: 312 QTc: 362 Interpretive Statements SINUS RHYTHM WITH FREQUENT ECTOPIC PREMATURE COMPLEXES POSSIBLE LEFT ATRIAL ENLARGEMENT [-0.1mV P-WAVE IN V1/V2] RIGHT BUNDLE BRANCH BLOCK [120+ ms QRS DURATION, UPRIGHT V1, 40+ ms S IN I/aVL/V4/V5/V6] COMPARED TO ECG 12/06/2021 08:23:50 NO SIGNIFICANT CHANGES Electronically Signed On 03-29-2023 9:10:06 CDT by Frances Cristobal M.D.
--- NOTE | 2023-03-28 23:40 | PC.NURSE ---
Pt noted to have heart rate in the 30's on media monitor. Upon entering room pt has no complaints. Skin warm, pink, and dry. Pt alert and oriented x4. EKG performed.
[2023-03-28 23:43] VITALS: BP 124/50; PULSE 85; RESP 20; O2SAT 96
--- NOTE | 2023-03-28 23:56 | PC.NURSE ---
Updates called to Valentina AUSTIN.
--- NOTE | 2023-03-29 00:04 | ADMGEN ---
This patient, Anabela Eaton, was admitted to Medical Room 242-. Patient/family oriented to hospital policies and general routines including ID bracelet, bed and alarms, visiting hours, pain management, procedures, bathroom and other care routines, personal items, smoking policy, room service/diet, and visiting hours. Information on how to activate the Rapid Response Team has been discussed. Patient/Family are encouraged to report perceived risks to care and to ask questions if they do not understand what they are told or what they should do.
[2023-03-29 00:08] VITALS: BP 124/41; PULSE 80; RESP 18; TEMP 36.1; O2SAT 100; BMI 27.7
[2023-03-29 12:37] LABS: Glucose Point of Care 103 mg/dl (65-105)
[2023-03-29 12:38] LABS: Glucose Point of Care 90 mg/dl (65-105)
[2023-03-29 17:57] LABS: Glucose Point of Care 105 mg/dl (65-105)
--- NOTE | 2023-03-29 18:19 | HP_ITS ---
DATE OF SERVICE: 03/29/2023 TIME: 0140. This dictation is being performed via learning operations specialist due to unexpected [employer] downtime. CHIEF COMPLAINT: Fall with right groin pain. HISTORY OF PRESENT ILLNESS: The patient is a 67-year-old female with a past medical history of metabolic syndrome, osteoporosis, and osteoarthritis, who presented to the ER after having a fall while playing pickleball. The patient reports that she was walking backwards to catch the ball whenever she tripped over her feet and fell. She fell backwards and landed on her low back and rocked back and hit the back of her head. She did not lose consciousness. She did reach back with her right hand to catch herself and subsequently has some right lateral wrist pain. Prior to the fall, she felt in good health. She usually works out at least 5 days a week with walking, but just recently started playing pickleball. This is only her 2nd or 3rd term playing pickleball. She denied any chest pain or palpitations. She reports that when she tried to bend her leg to move and stand up, she had moderately severe, sharp right groin pain. The pain is better if she stays still and was improved after receiving Toradol in the ER. She actually states that her right wrist hurts more than her groin. She has commenced that her right wrist is broken despite her x-ray imaging being negative for fracture. She denies any loss of bowel or bladder control, but imaging in the ER did demonstrate age-indeterminate L4 compression fracture and a L5 burst fracture. The patient has no reproducible tenderness on palpation of the low back. She does state that she had a fall while in the shower shortly after hip replacement in January. She fell into the raised lip of the shower. She did see her orthopedic surgeon at that time, and he ordered an x-ray of the sacrum and pelvis, which was negative. She did not have imaging of her back that she knows of. She is adamant that she is not having any back pain at this time. She denies any nausea or vomiting or vision changes since her fall. She states that she is having some trouble voicing her thoughts, but this could be due to her having received some narcotics in the ER. She is currently continent of bowel and bladder. The patient reports that she was recently started on Movantik and has lost 10 pounds. The patient does report a recent diagnosis of obstructive sleep apnea and is still adjusting to her nasal CPAP. She states that she does not want the CPAP while she is here since we only have a full-face mask CPAP. She just used her CPAP for the first time last evening. REVIEW OF SYSTEMS: Twelve-point review of systems was reviewed with pertinent positives and negatives as per HPI. PAST MEDICAL HISTORY: 1. Osteoporosis. 2. Stress fractures. 3. Right total hip arthroplasty, January 2022. 4. Endometriosis with multiple exploratory laparotomies and laparoscopic procedures. 5. Diverticulosis with history of diverticulitis. 6. Metabolic syndrome, on Movantik. 7. Obstructive sleep apnea with recently new use of CPAP. 8. Multiple exploratory laparotomies due to endometriosis. 9. Right hip arthroplasty due to severe osteoarthritis. ALLERGIES: PENICILLIN, WHICH CAUSED A RASH TO HER SCALP AND TINGLING OF THE SCALP. FAMILY HISTORY: A brother with diabetes mellitus. Mother who of glioblastoma at age 57. Father who of bleeding gastric ulcer, but who also had diabetes. SOCIAL HISTORY: The patient lives with her of 42 years. She drinks a couple of glasses of wine 2 to 3 times a week. She denies any illicit substance or tobacco use. The patient does not have any children. Code status is full code. Surrogate decision maker is her . PHYSICAL EXAMINATION: VITAL SIGNS: As
[2023-03-29 20:00] VITALS: PULSE 78; PULSE 79; RESP 18; O2SAT 97
[2023-03-29 20:30] VITALS: BP 115/49; PULSE 79; RESP 18; TEMP 36.8; O2SAT 97
[2023-03-29] MEDS: MONTELUKAST SODIUM 10 MG TABLET PO (20:39)
--- NOTE | 2023-03-29 21:32 | PC.NURSE ---
Paper documentation exists on this patient due to [employer] downtime on 03/29/23 from 0030 to 1930 .
[2023-03-29 21:36] LABS: Glucose Point of Care 97 mg/dl (65-105)
[2023-03-29 22:00] VITALS: BP 126/59; PULSE 86; RESP 18; TEMP 36.9; O2SAT 90
[2023-03-30] VITALS (7 sets, daily range): BP systolic 102–117; BP diastolic 45–82; PULSE 50–90; RESP 18; TEMP 36.8; O2SAT 90–94
[2023-03-30] MEDS: oxyCODONE HCL (*CRX) 5 MG TAB IR PO ×4 (00:57→12:56)
[2023-03-30] MEDS: ACETAMINOPHEN 500 MG TABLET 1000 MG PO ×2 (00:57→06:02)
--- NOTE | 2023-03-30 06:35 | CONS_ITS ---
DATE OF CONSULTATION: 03/29/2023 HISTORY OF PRESENT ILLNESS: Ms. Eaton is a 67-year-old female who fell while she was running backwards playing pickleball yesterday. She got tangled up in her feet. She feels like she 1st landed on her right knee, which seemed to give out, then she landed onto her buttocks, and then hit the back of her head. She also complains of severe pain at the radial side of her right wrist. She continues to have severe pain at the lateral aspect of her right knee and a large effusion, probably hemarthrosis. She has no prior problems with these areas. She has had pain in the lower back since her fall and pain in the medial right groin. She underwent right total hip arthroplasty approximately 1 year ago and was doing well and not having any issues. X-rays and CT scan of the pelvis demonstrate nondisplaced fractures of superior and inferior pubic rami on the right and no evidence of periprosthetic proximal femur or acetabular fracture. X-rays of lumbar spine and CT of lumbar spine demonstrate acute compression fractures. Minimal compression at L4 with some anterior vertebral body buckling and mild to moderate anterior compression fracture at L5 with anterior vertebral body comminution. There is no evidence of burst fracture through the posterior aspects of either vertebral body. She had x-rays of her right wrist, which demonstrated rather severe scaphotrapezial trapezoidal arthritis and no definite evidence of fracture. X-rays of her right knee showed an effusion and no evidence of fracture. After the patient fell, she was able to get up and limp to her car. Her main problem was that every time she stepped on her right leg, the knee felt like it would go out of socket. She was also complaining of severe medial groin pain with weightbearing. PHYSICAL EXAMINATION: On exam, she has a large soft effusion in the right knee. There is no obvious instability to varus/valgus stress testing or Marian's. Rotation of right hip causes minimal discomfort in the groin. She had severe tenderness over the lateral femoral condyle at the right knee, moderate tenderness over the lateral tibial plateau at the right knee. She had severe tenderness over the radial styloid and snuffbox of the right wrist. Snuffbox tenderness could be related to her severe scaphotrapezial trapezoidal arthritis, but the radial styloid tenderness is worrisome for an occult fracture there. She does not like the Dilaudid, it makes her feel woozy. She would like scheduled pain medication like she had after her hip replacement. I have ordered Tylenol 1000 mg q.6 hours and oxycodone 5 mg or 10 mg every 4 hours as needed. We will order an MRI scan of her right knee and a CT scan of her right wrist. We will ask Bertrand to provide a lumbosacral orthosis for her compression fractures at L4 and L5 and a thumb spica wrist splint for her right wrist. She has SCDs in place for DVT prophylaxis. We will also order Lovenox if not already done. 70 minutes were spent in total care of this patient today. I also reviewed the CT scans of pelvis and lumbar spine with the radiologist in the department as there were no reports available because of the computer malfunction. CELIO SHEIKH M.D. WINDOW REPAIRER WINDOW REPAIRER D Nura MT: Osvaldo
--- NOTE | 2023-03-30 07:19 | PM.PNORT ---
Progress Note: A&P Assessment and Plan (1) Lumbar compression fracture: Code(s): S32.000A - Wedge compression fracture of unspecified lumbar vertebra, initial encounter for closed fracture Status: Acute Assessment and Plan: Patient is hospital day 3. The formal report CT scan considers the L4 compression fracture as a minimally impacted compression fracture and the radiologist is calling the L5 vertebral body fracture a burst fracture without any retropulsion. We have ordered a lumbosacral orthosis for support and will mobilize her as tolerated once this is available. Patient has right superior and inferior pubic ramus fractures both nondisplaced with buckling. I reviewed the CT images of the right wrist which demonstrate rather advanced scaphoid trapezial trapezoidal arthritis. The images on the PACS did not include axial cuts for some reason. There are coronal and sagittal reconstructions I did not see evidence of fracture on those views. MRI scan of right knee demonstrated a large effusion and a 1 cm area subchondral edema in the central patella consistent with contusion. ACL had some irregularity but no evidence of brent tear. The plane of imaging was not optimal for showing the entire ACL on any of the images the sagittal T2 the sagittal T1 suggest that is likely not torn. There was a large fluid collection the posteromedial aspect of the knee indicating leakage of popliteal cyst. I did not see evidence of fracture in the tibial plateau or distal femur or patella. Extensor mechanism is intact. Underlying patellofemoral degenerative changes are noted. I have called Radiology they are going to locate the radiologist's reports and call me with these. The are not read yet. Patient tells me she does have significant osteopenia perhaps bordering on osteoporosis and her primary care physician has already referred her to Endocrinology for but her appointment is not until 2023. I have given her the name of Dr. Kohli affiliated with [facility] we may be able the see her sooner. She does take calcium plus vitamin-D on a regular basis. She is unable to do straight leg raise today mainly because of groin pain. I could not appreciate any brent instability in the right knee. She is concerned about the feeling that her knee was dislocating or going out of joint when she tried to walk on. She has no pain at rest her pain is well controlled with the current regimen. I have read through her diagnosis list on the EMR this morning and she does have history of fatty liver so we will back off on the Tylenol and order 650 Q 6 hours instead of the 1000 Q 6 hours. I have left orders to mobilize her today. She has the [employer] lumbosacral orthosis and she is wearing the wrist splint which has proven to be very comfortable for. We will ask for forearm rest to be applied to the walker and she will be partial weight-bearing on the right leg and we will see how she does. After we get the formal radiologist reports and the CT of the right wrist the MRI scan of the right knee we may be able to send her home later today. She is eager to go home she states. We will see how she does with therapy today. Subjective Subjective Date/Time Seen: 03/30/23 07:19 Objective Data Vital Signs Vital Signs: Vital Signs - 24 hr 03/29/23 20:30 03/29/23 20:00 03/29/23 22:00 Temperature 36.8 C 36.9 C Pulse Rate 79 79 86 Respiratory Rate 18 18 18 Blood Pressure 115/49 L 126/59 L Pulse Oximetry 97 97 90 Oxygen Delivery Room Air 03/29/23 20:00 03/30/23 00:00 03/30/23 04:00 Temperature Pulse Rate 78 85 90 Respiratory Rate Blood Pressure Pulse Oximetry Oxygen Delivery 03/30/23 06:00 03/30/23 06:49 Temperature 36.8 C Pulse Rate 50 L 89 Respiratory Rate 18 Blood Pressure 117/45 L Pulse Oximetry 94 Oxygen Delivery Meds/Results Medications: Active Medications Generic Name Dose Route Start Last
[2023-03-30 09:00] LABS: Glucose Point of Care 115 mg/dl (65-105)
[2023-03-30] MEDS: polyethylene glycoL 3350 17 GM POWD.PACK PO (09:33)
[2023-03-30] MEDS: LOSARTAN POTASSIUM 25 MG TABLET PO (09:33)
[2023-03-30] MEDS: SACCHAROMYCES BOULARDII 250 MG CAPSULE PO (09:33)
[2023-03-30] MEDS: SENNA/DOCUSATE SODIUM TABLET 1 TAB PO (09:34)
[2023-03-30] MEDS: CHOLECALCIFEROL 1,000 UNITS TABLET 2000 UNITS PO (09:34)
[2023-03-30] MEDS: ENOXAPARIN 40 MG/0.4 ML SYRINGE SUB-Q (09:35)
[2023-03-30] MEDS: MULTIVITAMINS THERAPEUTIC TAB (*BKC) 1 TABLET PO (09:35)
[2023-03-30 11:11] LABS: Anion Gap 6 mmol/L (8-16); Blood Urea Nitrogen 14 mg/dL (7-17); Calcium 9.2 mg/dL (8.4-10.2); Carbon Dioxide 29 mmol/L (22-30); Chloride 101 mmol/L (98-107); Estimated CRCL calculation 70 ml/min; Estimated Glomerular Filt Rate > 60; Glucose 105 mg/dL (65-110); Magnesium 2.5 mg/dL (1.6-2.3); Potassium 3.7 mmol/L (3.4-5.0); Sodium 136 mmol/L (137-145)
[2023-03-30 11:42] LABS: Vitamin D 25 Hydroxy 54.1 ng/mL
[2023-03-30 12:06] LABS: Glucose Point of Care 100 mg/dl (65-105)
--- NOTE | 2023-03-30 12:22 | PCPTNOTE ---
On 03/30/23, the student, [Mary Hearn], provided care and completed [facility] documentation on this patient. I have reviewed the student's documentation and agree with the findings.
[2023-03-30] MEDS: ACETAMINOPHEN 325 MG TABLET 650 MG PO (12:56)
--- NOTE | 2023-03-30 14:42 | PM.DS ---
DS: Admitting Diagnosis Discharge Date 03/30/2023 Admitting Diagnosis Mechanical fall. Right obturator ring fracture. L4 & L5 compression fracture. DS: Discharge Diagnosis Discharge Diagnosis (1) Pelvic ring fracture: Qualifiers: Encounter type: initial encounter Fracture type: closed Qualified Code(s): S32.810A - Multiple fractures of pelvis with stable disruption of pelvic ring, initial encounter for closed fracture Code(s): S32.810A - Multiple fractures of pelvis with stable disruption of pelvic ring, initial encounter for closed fracture Status: Acute (2) Fall: Qualifiers: Encounter type: initial encounter Qualified Code(s): W19.XXXA - Unspecified fall, initial encounter Code(s): W19.XXXA - Unspecified fall, initial encounter Status: Acute (3) Lumbar compression fracture: Qualifiers: Encounter type: initial encounter Lumbar vertebra fracture level: unspecified lumbar vertebra Qualified Code(s): S32.000A - Wedge compression fracture of unspecified lumbar vertebra, initial encounter for closed fracture Code(s): S32.000A - Wedge compression fracture of unspecified lumbar vertebra, initial encounter for closed fracture Status: Acute (4) Fracture of triquetrum of right wrist: Qualifiers: Encounter type: initial encounter Fracture type: closed Fracture alignment: nondisplaced Qualified Code(s): S62.114A - Nondisplaced fracture of triquetrum [cuneiform] bone, right wrist, initial encounter for closed fracture Code(s): S62.111A - Displaced fracture of triquetrum [cuneiform] bone, right wrist, initial encounter for closed fracture Status: Acute (5) Contusion of right patella: Qualifiers: Encounter type: initial encounter Qualified Code(s): S80.01XA - Contusion of right knee, initial encounter Code(s): S80.01XA - Contusion of right knee, initial encounter Status: Acute (6) Hypertension: Qualifiers: Hypertension type: essential hypertension Qualified Code(s): I10 - Essential (primary) hypertension Code(s): I10 - Essential (primary) hypertension Status: Chronic (7) Frequent PVCs: Code(s): I49.3 - Ventricular premature depolarization Status: Chronic (8) Bradycardia: Code(s): R00.1 - Bradycardia, unspecified Status: Acute DS: Summary Hospital Course Reason for hospitalization: Fall, right groin pain Hospital Course: Patient is a 67-year-old female with a past medical history of metabolic syndrome, osteoporosis, and osteoarthritis, who presented to the ER after having a fall while playing pickleball.? The patient reported walking backwards to catch the ball when she tripped over her feet and fell.? She fell backwards and landed on her low back and rocked back and hit the back of her head.? She did not lose consciousness.? She did reach back with her right hand to catch herself and subsequently has some right lateral wrist pain.? Prior to the fall, she felt in good health.? She usually works out at least 5 days a week with walking, but just recently started playing pickleball.? This is only her 2nd or 3rd time playing.? She denied any chest pain or palpitations.? She reported when she tried to bend her leg to stand up, she had moderate to severe, sharp right groin pain.? The pain is better if she stays still and was improved after receiving Toradol in the ER.? She also had right wrist pain concerned for a fracture.? She denied loss of bowel or bladder control, but imaging in the ER did demonstrated age-indeterminate L4 compression fracture and a L5 burst fracture.? The patient had no reproducible tenderness on palpation of the low back.? She endorsed that she had a fall while in the shower shortly after hip replacement in January.?She fell into the raised lip of the shower.? She did see her orthopedic surgeon at that time, and he ordered an x-ray of the sacrum and
== END 2023-03-30 16:55 | disposition home health service (06) ==
LOC: ANHED 18:38 → ANH2MED 03-30 14:42
PROVIDERS: Nurse Practitioner Family; Admitting Provider Internal Medicine; Emergency Provider Emergency Medicine; PCP Family Medicine; Visit Provider Student in an Organized Health Care Education/Training Program
DX: S09.90XA Unspecified injury of head, initial encounter (principal); S32.810A Multiple fractures of pelvis with stable disruption of pelvic ring, initial encounter for closed fracture; S32.040A Wedge compression fracture of fourth lumbar vertebra, initial encounter for closed fracture; S32.051A Stable burst fracture of fifth lumbar vertebra, initial encounter for closed fracture; S83.511A Sprain of anterior cruciate ligament of right knee, initial encounter; S80.01XA Contusion of right knee, initial encounter; S83.281A Other tear of lateral meniscus, current injury, right knee, initial encounter; S62.114A Nondisplaced fracture of triquetrum [cuneiform] bone, right wrist, initial encounter for closed fracture; W01.0XXA Fall on same level from slipping, tripping and stumbling without subsequent striking against object, initial encounter; Y93.73 Activity, racquet and hand sports; Y92.9 Unspecified place or not applicable; I10 Essential (primary) hypertension; I49.3 Ventricular premature depolarization; R94.31 Abnormal electrocardiogram [ECG] [EKG]; R10.30 Lower abdominal pain, unspecified; M66.0 Rupture of popliteal cyst; Z96.641 Presence of right artificial hip joint; M19.031 Primary osteoarthritis, right wrist; M94.261 Chondromalacia, right knee; J45.909 Unspecified asthma, uncomplicated; K57.50 Diverticulosis of both small and large intestine without perforation or abscess without bleeding; E78.5 Hyperlipidemia, unspecified; G47.33 Obstructive sleep apnea (adult) (pediatric); Z99.89 Dependence on other enabling machines and devices; N80.9 Endometriosis, unspecified; K58.9 Irritable bowel syndrome, unspecified; E88.81 Metabolic syndrome and other insulin resistance; M81.0 Age-related osteoporosis without current pathological fracture; I45.10 Unspecified right bundle-branch block; E66.3 Overweight; Z68.27 Body mass index [BMI] 27.0-27.9, adult; F10.90 Alcohol use, unspecified, uncomplicated; Z79.899 Other long term (current) drug therapy
CPT/HCPCS: 36415; 70450; 72100; 72125; 72131; 72192; 73110; 73200; 73502; 73562; 73721; 80048; 82306; 82948; 83735; 85025; 93005; 96372; 96374; 96375; 97116; 97161; 97165; 97530; 97535; 99285; A9270; G0378; J1170; J1650; J1885

== ENCOUNTER → 2023-07-03 13:41 | Outpatient (CLI) | payer MEDICARE, SELFPAY ==
--- NOTE | ~2023-07-03 | XR_ITS ---
EXAMINATION: XR mandible min 4V DATE: 07/03/2023 14:22 INDICATION: Jaw pain. TECHNIQUE: 4 views of the mandible were obtained. COMPARISON: Head CT 03/28/2023 FINDINGS: Bone alignment is normal. No fracture. The temporomandibular joints are normal. IMPRESSION: 1. Normal mandible. Reviewed, dictated and finalized at location E. IMPRESSION: 1. Normal mandible.
== END ==
PROVIDERS: PCP Family Medicine; Visit Provider Family Medicine
DX: R68.84 Jaw pain (principal)
CPT/HCPCS: 70110

== ENCOUNTER 2023-10-26 09:39 | Outpatient (CLI) | payer MEDICARE, SELFPAY ==
[2023-10-26 10:32] LABS: Influenza A QL RT-PCR Negative (Negative); Influenza B QL RT-PCR Negative (Negative); RSV RNA, RT-PCR Negative (Negative); SARS-CoV-2 RNA PCR Negative (Negative)
== END 2023-10-26 09:40 | disposition home or self-care (01) ==
PROVIDERS: PCP Family Medicine; Visit Provider Family Medicine
DX: J06.9 Acute upper respiratory infection, unspecified (principal)
CPT/HCPCS: 87637

== ENCOUNTER 2024-06-13 12:30 | Outpatient (RCR) | payer MEDICARE, SELFPAY ==
--- NOTE | 2024-05-21 13:49 | OPREHPOC ---
Outpatient Therapy Plan of Care This is a Multidisciplinary Plan of Care that may contain components documented by all disciplines (PT, OT, and ST.) PT Problem 1 PT Problem #1 Knowledge Deficit PT Goal 1 Goal 1. Patient will perform independent HEP 2. Patient will verbalize urge suppression strategies Target Visit 6 PT Problem 2 PT Problem #2 Impaired Strength PT Goal 1 Goal 1. Improve pelvic floor strength to 4/5 to reduce incontinence 2. Improve pelvic floor endurance to 10 seconds to reduce incontinence Target Visit 6 PT Problem 3 PT Problem #3 Impaired Functional ADLs PT Goal 1 Goal 1. Pt will report no more than 1 instance of incontinence per month 2. Pt will wake no more than 1 time to void at night 3. Pt will be able to hold urge to urinate at least 30 minutes Target Visit 6
--- NOTE | 2024-05-21 13:49 | PTOPEVAL1 ---
Assessment and note entered by Amanda Carranza DPT Evaluation Information Assessment Status Evaluation ICD-10 Condition Codes (PT) Urge incontinence N39.41,Mixed incontinence N39.46 ,Stress incontinence N39.3 Subjective Information Pt previous pelvic fracture last year (pickleball injury) and is now noticing urinary urgency. Previous R hip replacement as well. Voids 6 times a day. Is also waking up 3-4 times at night to void. Can hold urge to void up to 10 minutes but sometimes feels that it hits her out of nowhere. Small amounts of incontinence at least weekly, sometimes due to urge and sometimes sneeze/cough/ laugh. Has had to change clothes one time. Not wearing pads regularly. Denies pain with urination . BM usually every other day (less frequent than it is before her injury), sometimes has pain. Highest pain 6/10 and lowest 0/10. Has also been diagnosed with diverticulitis. Takes miralax daily . History of some pelvic pain, attributes it now to dryness . Also history of endometriosis with multiple past surgeries. Pt has never been . Has avoided fluids at times depending on the situation in order to not duarte to the bathroom. Does not walk or exercise longer than 30 minutes due to urgency/incontinence. Patient goal: improve bladder control, not wake up through the night Returns to MD August. Reported Pain Level Pain Score 0: Self Report Assessment PT Clinical Summary The patient is presenting to skilled therapy with a 1 year history of mixed urinary incontinence and urgency. She presents with decreased pelvic floor strength and endurance as well as decreased core strength. These impairments are contributing to her incontinence and urgency and she will benefit from therapy to restore prior level of function. Plan of Care Interventions Manual Therapy,Neuro Re-education,Patient/ Caregiver Education,Therapeutic Activities, Therapeutic Exercise PT Services Indicated Yes Treatment Frequency and 1 time a week for 6 visits Duration These treatments will address the objective and functional deficits as defined above. The patient will be advanced safely and appropriately in order for the patient to progress towards his/her prior level of function. Additional exercises will be introduced and as well as a comprehensive home exercise program upon dis
--- NOTE | 2024-05-28 14:26 | PCPTNOTE ---
Patient called to cancel appointment on 05/28/24 due to family emergency.
--- NOTE | 2024-06-06 14:33 | PCPTNOTE ---
Patient called to cancel appointment on 06/06/24 due to her brother's health issues.
--- NOTE | 2024-07-22 10:10 | PTOPDC ---
Assessment and note entered by Amanda Carranza, DPT Evaluation Information Assessment Status Discharge - Pt Not Present ICD-10 Condition Codes (PT) Urge incontinence N39.41,Mixed incontinence N39.46 ,Stress incontinence N39.3 Subjective Information - Assessment PT Clinical Summary Patient is self discharging at this time. Plan of Care PT Services Indicated No
== END 2024-07-22 11:53 | disposition home or self-care (01) ==
LOC: ANHPT 12:30
PROVIDERS: PCP Family Medicine; Visit Provider Family Medicine
DX: N39.46 Mixed incontinence (principal)
CPT/HCPCS: 97110; 97112; 97161; 97530

== ENCOUNTER 2025-02-19 11:03 | Outpatient (CLI) | payer MEDICARE, SELFPAY ==
--- NOTE | ~2025-02-19 | XR_ITS ---
AP view of the pelvis and AP and lateral views of the right hip Clinical history: Pain Findings: No acute fracture or dislocation is seen. Right hip arthroplasty in place. There is moderat e degenerative change of the left hip joint.. Soft tissues are unremarkable. Impression: No acute abnormality. Right hip arthroplasty. Moderate degenerative change of the left hip joint. Reviewed, dictated and finalized at location . Impression: No acute abnormality. Right hip arthroplasty. Moderate degenerative change of the left hip joint.
--- NOTE | ~2025-02-19 | XR_ITS ---
Lumbosacral Spine: AP and lateral views Clinical History: Status post fall COMPARISON: 03/28/2023 Findings: There is dextroscoliosis, apex at L3. There is mild compression fracture of L4, new from pr ior exam, somewhat age indeterminate. Moderate compression fracture of L5 is present, similar to prio r exam. There are mild degenerative changes. There is severe facet arthropathy, especially from L3 th rough S1. The sacroiliac joints are normally outlined. Impression: Mild age-indeterminate L4 compression fracture. Consider MR to evaluate for acuity. Moderate L5 compression fracture, similar to prior exam. Degenerative changes, as above. Reviewed, dictated and finalized at location M. Impression: Mild age-indeterminate L4 compression fracture. Consider MR to evaluate for acu ity. Moderate L5 compression fracture, similar to prior exam. Degenerative changes, as above.
== END 2025-02-19 11:04 | disposition home or self-care (01) ==
LOC: MICIMG 11:05
PROVIDERS: PCP Family Medicine; Visit Provider Student in an Organized Health Care Education/Training Program
DX: S32.050A Wedge compression fracture of fifth lumbar vertebra, initial encounter for closed fracture (principal); X58.XXXA Exposure to other specified factors, initial encounter; M16.12 Unilateral primary osteoarthritis, left hip
CPT/HCPCS: 72100; 73502

== ENCOUNTER 2025-04-14 09:56 | Outpatient (CLI) | payer MEDICARE, SELFPAY ==
--- NOTE | ~2025-04-14 | MR_ITS ---
EXAMINATION: MR knee RT wo con DATE: 04/14/2025 10:45 INDICATION: Right knee pain TECHNIQUE: Magnetic resonance imaging (MRI) of the right knee was performed without intravenous contr ast. Sequences included coronal PD-weighted FSE, coronal PD-weighted FS FSE, sagittal T2-weighted FS E, sagittal PD-weighted FS FSE and axial PD weighted fat saturated FSE. COMPARISON: None. FINDINGS: Medial compartment: Medial meniscus is normal. There is partial thickness chondral ulceration and deep fissuring along th e lateral aspect of the anterior to central weightbearing medial femoral condyle. There is mild under lying cortical irregularity and subarticular edema-like signal change. Remaining cartilage the medial compartment is normal. Lateral compartment: Tear of the posterior horn of the lateral meniscus, likely complex with longitudinal tear plane exten ding to the inferior articular surface at the lateral aspect of the posterior horn with more diffuse increased signal involving the inner half of the more medial posterior horn. Partial-thickness cartil age loss with smooth chondral surface involving greater than 50% of the cartilage thickness at the po sterolateral quadrant of the lateral tibial plateau and deep fissuring at the central aspect of the l ateral tibial plateau but without degenerative subchondral changes. Additional deep chondral ulcerati on with chondral surface irregularity and mild underlying subarticular edema-like signal changes at t he central aspect of the weightbearing lateral femoral condyle. Patellofemoral compartment: Partial thickness cartilage loss involving greater than 50% of the cartilage thickness but with veena h chondral surface and without degenerative subchondral changes at the patellar apical ridge and the adjacent medial and lateral patellar facets. Additional less severe partial thickness cartilage loss also with smooth chondral surface at the inferior aspect of the trochlea including the medial and lat eral facets and trochlear groove. Ligaments and tendons: Anterior and posterior cruciate ligaments are normal. The medial collateral ligament and fibular bala ateral ligament complex are normal. The extensor mechanism is normal. The visualized medial and later al hamstring tendons as well as the iliotibial band are normal. Fluid: Moderate-sized knee joint effusion at the suprapatellar pouch. There is also a moderate to large Bake r's cyst measuring 7.1 cm craniocaudally and up to 2.7 x 1.1 cm maximal transaxial dimensions. No loo se osteochondral bodies identified. Osseous/other: Bone alignment is normal. No fracture or pathologic marrow replacing process. IMPRESSION: 1. Tear, likely complex at the posterior horn of the lateral meniscus. 2. Mild tricompartmental osteoarthritis with high-grade chondromalacia in the medial lateral compartm ents and moderate grade chondromalacia in the patellofemoral compartment. 2. Moderate-sized right knee joint effusion and moderate to large Ford's cyst. Reviewed, dictated and finalized at location B. IMPRESSION: 1. Tear, likely complex at the posterior horn of the lateral meniscus. 2. Mild tricompartmental osteoarthritis with high-grade chondromalacia in the m edial lateral compartments and moderate grade chondromalacia in the patellofemo ral compartment. 2. Moderate-sized right knee joint effusion and moderate to large Ford's cyst.
== END 2025-04-14 09:57 | disposition home or self-care (01) ==
LOC: GOSHIMG 09:57
PROVIDERS: PCP Orthopaedic Surgery; Visit Provider Physician Assistant Surgical
DX: S83.281A Other tear of lateral meniscus, current injury, right knee, initial encounter (principal); X58.XXXA Exposure to other specified factors, initial encounter; M17.11 Unilateral primary osteoarthritis, right knee; M22.41 Chondromalacia patellae, right knee; M25.461 Effusion, right knee; M71.21 Synovial cyst of popliteal space [Baker], right knee
CPT/HCPCS: 73721

== ENCOUNTER 2025-06-04 09:45 | Outpatient (RCR) | payer MEDICARE, SELFPAY ==
--- NOTE | 2025-05-02 12:31 | OPREHPOC ---
Outpatient Therapy Plan of Care This is a Multidisciplinary Plan of Care that may contain components documented by all disciplines (PT, OT, and ST.) PT Problem 1 PT Problem #1 Knowledge Deficit PT Goal 1 Goal / Goal Update Patient to demonstrate independence with core stabilization HEP for improved self-reliance of symptom management. Target Visit 4 PT Problem 2 PT Problem #2 Pain PT Goal 1 Goal / Goal Update 1. Patient to decrease subjective reports of pain to <2/10 for improved ADL tolerance. 2. Patient to report an improvement in radiating symptoms by 50% to increase ability to perform activities of daily living. Target Visit 12 PT Problem 3 PT Problem #3 Impaired Functional Mobility PT Goal 1 Goal / Goal Update 1. Pt will demonstrate the ability to pick an object from the floor using appropriate body mechanics (hip hinge) without utilizing excessive lumbar flexion 2. Pt will self report the ability to walk 1 mile without increase pain in lumbar spine. Target Visit 12 PT Problem 4 PT Problem #4 Impaired Strength PT Goal 1 Goal / Goal Update 1. Pt will demonstrate the ability to maintain core neutral, bird dog position for 10 secs DREW 2. Patient will demonstrate improved strength of the bilateral hip abductors and extensors to 4+/5 on manual muscle testing in order to improve gait stability and stair negotiation. Target Visit 12
--- NOTE | 2025-05-02 12:37 | PTOPEVAL1 ---
Assessment and note entered by Daniel Edward PT Evaluation Information Assessment Status Evaluation Diagnosis wedge compression fracture at L2 ICD-10 Condition Codes (PT) Pain in low back M54.50 Other ICD-10 Condition Codes ( S32.020 PT) Onset Feb 18 2025 Subjective Information Pt states she had a previous injury in 2021 playing pickleball where she had a pelvic and vertebral fractures. Pt had an additional fall on Feb 18 2025 and had a L2 wedge fracture with a subsequent vertebroplasty on 04-09-25. Pt was previously wearing a lumbar stabilization brace but was advised to discontinue use of brace and start PT gain core strength and to not become reliant on brace. Pt notes continued difficulty with house work such as vacuuming, unloading oil spot washer and scooping dog food. Pt also has R knee OA. Reported Pain Level Pain Score 4: Self Report Assessment PT Clinical Summary Patient presents to physical therapy with a primary issue of low back pain following an L2 wedge fracture and subsequent vertrrboplasty on April 09. Patient demonstrates core and hip weakness, increased pain with activity, decreased mobility, abnormal posture, gait deficit, and decreased flexibility that limit their ability to perform activities of daily living and functional movements. Patient will benefit from skilled physical therapy to address the above listed deficits and return to prior level of function. Home exercise program instructed and written handout provided, exercises tolerated well with no adverse effects to note post-session. Patient was educated on importance of adherence to home exercise program. Patient was also educated on anatomy, prognosis, home modalities, and plan of care. Plan of Care Interventions Aquatic Therapy,Electrical Stimulation,Gait Training,Hot Pack/Cold Pack,Manual Therapy,Neuro Re-education,Therapeutic Activities,Therapeutic Exercise,Other PT Services Indicated Yes Treatment Frequency and 2x week for 12 visits Duration These treatments will address the objective and functional deficits as defined above. The patient will be advanced safely and appropriately in order for the patient to progress towards his/her prior level of function. Additional exercises will be introduced and as well as a comprehensive home exercise program upon discharge, if needed, ?to ensure carryover of functional gains achieved in the clinic. This treatment plan has been reviewed and agreement upon by the patient.
--- NOTE | 2025-05-23 09:28 | PCPTNOTE ---
Cancelled, sick per front office. AKS
--- NOTE | 2025-08-25 14:50 | PCPTNOTE ---
PT DISCHARGE REPORT 08-25-25 CELSO Alange has received 8 PT sessions, from May 02 to June 04. She then stopped attending therapy. Discharge PT due to pt stopped attending.
== END 2025-07-31 23:59 | disposition home or self-care (01) ==
LOC: ANHPT 09:45
PROVIDERS: PCP Family Medicine
DX: S32.020S Wedge compression fracture of second lumbar vertebra, sequela (principal)
CPT/HCPCS: 97110; 97140; 97161; 97530

== ENCOUNTER 2025-08-15 14:10 | Outpatient (CLI) | payer MEDICARE, SELFPAY ==
--- OUTSIDE RECORDS SUMMARY | 2015-11-20 01:00 | XMS_ITS | Encounter Summary ---
Author Organization [facility] Healthcare Address [address] [place] [address] Care Team Providers Care Insurance Claims Assistant Name Role Phone Unavailable Primary Care Provider Unavailabl e Reason for Visit * Diagnostic Imaging (Routine) - Closed Specialty Diagnoses / Procedures Referred By Contac t Referred To Contact Procedures Breast Imaging Screening Outside Reference Referral, Self Referral ID Status Reason Start Date Expiration Date Visits Re quested Visits Authorized [id number] Closed 01/11/2022 02/10/2023 1 1 Encounter Details Date Type Department Care Team (Late st Contact Info) Description 11/20/2015 Hospital Encounter [facility] [address] [place] [phone] Social History Tobacco Use Types Packs/Day Years Used Date Smoking Tobacco: Never Smokeless Tobacco: Never AUDIT-C Answer Date Recorded Q1: How often do you have a drink containing alcohol? 4 or more times a week 12/20/2023 Q2: How many drinks containi ng alcohol do you have on a typical day when you are drinking? 1 or 2 Frequency of Binge Drinking Not on file 03/2024 Personal Safety Answer Date Recorded Have you ever been in or are you currently in a harmful physical or emotional relationship or is someone making you feel afraid or unsafe? Denies 05/23/2025 Comments No Sex and Gender Information Value Date Recorded Sex Assigned at Not on file Legal Sex Female 6:58 PM BIN WORKER Gender Identity Female 11/09/2021 8:55 AM BIN WORKER Sexual Orientation Straight 11/09/2021 8: 55 AM BIN WORKER documented as of this encounter Functional Status documented as of this encounter Plan of Treatment Not on file documented as of this encounter Procedures Procedure Name Priority Date/Time Associated Diagnosis Comments BREAST IMAGING MG SCREENING OUTSIDE REFERENCE Routine 11/20/2015 12:00 AM BIN WORKER documented in this encounter Results * Breast Imaging Screening Outside Reference (11/20/2015 12:00 AM BIN WORKER) Impressions RAD_MAMMO_[facility] - 01/11/2022 2:16 PM CDT These images are for Reference purposes only and have not been reviewed by [facility] Radiology. There will be no report generated by a [facility] Radiologist. Narrative RAD_MAMMO_[facility] - 01/11/2022 2:16 PM CDT EXAMINATION: Images For Reference Purposes Only us Self Referral IMG MAMMO PROCEDURES Final Resul t [facility]_MAMMO[facility] documented in this encounter Visit Diagnoses Not on filedocumented in this encounter
--- OUTSIDE RECORDS SUMMARY | 2016-12-02 01:00 | XMS_ITS | Encounter Summary ---
Author Organization [facility] Healthcare Address [address] [place] [address] Care Team Providers Care Solar Resource Assessor Name Role Phone Unavailable Primary Care Provider Unavailabl e Reason for Visit * Diagnostic Imaging (Routine) - Closed Specialty Diagnoses / Procedures Referred By Contac t Referred To Contact Procedures Breast Imaging Screening Outside Reference Referral, Self Referral ID Status Reason Start Date Expiration Date Visits Re quested Visits Authorized [id number] Closed 01/11/2022 02/10/2023 1 1 Encounter Details Date Type Department Care Team (Late st Contact Info) Description 12/02/[address] 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 Gender Identity Female 11/09/2021 8:55 AM FRUIT AND VEGETABLE FACTORY WORKER Sexual Orientation Straight 11/09/2021 8: 55 AM FRUIT AND VEGETABLE FACTORY WORKER documented as of this encounter Functional Status documented as of this encounter Plan of Treatment Not on file documented as of this encounter Procedures Procedure Name Priority Date/Time Associated Diagnosis Comments BREAST IMAGING MG SCREENING OUTSIDE REFERENCE Routine 12/02/2016 12:00 AM FRUIT AND VEGETABLE FACTORY WORKER documented in this encounter Results * Breast Imaging Screening Outside Reference (12/02/2016 12:00 AM FRUIT AND VEGETABLE FACTORY WORKER) Impressions RAD_MAMMO_[facility] - 01/11/2022 2:16 PM CDT These images are for Reference purposes only and have not been reviewed by [facility] Radiology. There will be no report generated by a [facility] Radiologist. Narrative RAD_MAMMO_[facility] - 01/11/2022 2:16 PM CDT EXAMINATION: Images For Reference Purposes Only us Self Referral IMG MAMMO PROCEDURES Final Resul t [facility]_MAMMO[facility] documented in this encounter Visit Diagnoses Not on filedocumented in this encounter
--- OUTSIDE RECORDS SUMMARY | 2017-12-08 01:00 | XMS_ITS | Encounter Summary ---
Author Organization [facility] Healthcare Address [address] [place] [address] Care Team Providers Care Jewel Stripper Name Role Phone Jose Juan Caraballo MD Primary Care Provider Reason for Visit * Diagnostic Imaging (Routine) - Closed Specialty Diagnoses / Procedures Referred By Contac t Referred To Contact Procedures Breast Imaging Screening Outside Reference Referral, Self Referral ID Status Reason Start Date Expiration Date Visits Re quested Visits Authorized [id number] Closed 01/11/2022 02/10/2023 1 1 Encounter Details Date Type Department Care Team (Late st Contact Info) Description 12/08/2017 Hospital Encounter [facility] Radiology [facility] [address] [place] [phone] Social History Tobacco Use Types Packs/Day Years [...] on file Legal Sex Female 6:58 PM RETAIL ADMINISTRATIVE ASSISTANT Gender Identity Female 11/09/2021 8:55 AM RETAIL ADMINISTRATIVE ASSISTANT Sexual Orientation Straight 11/09/2021 8: 55 AM RETAIL ADMINISTRATIVE ASSISTANT documented as of this encounter Functional Status documented as of this encounter Plan of Treatment Not on file documented as of this encounter Procedures Procedure Name Priority Date/Time Associated Diagnosis Comments BREAST IMAGING MG SCREENING OUTSIDE REFERENCE Routine 12/08/2017 12:00 AM RETAIL ADMINISTRATIVE ASSISTANT documented in this encounter Results * Breast Imaging Screening Outside Reference (12/08/2017 12:00 AM RETAIL ADMINISTRATIVE ASSISTANT) Impressions RAD_MAMMO[facility] - 01/11/2022 2:17 PM CDT These images are for Reference purposes only and have not been reviewed by [facility] Radiology. There will be no report generated by a [facility] Radiologist. Narrative RAD_MAMMO_[facility] - 01/11/2022 2:17 PM CDT EXAMINATION: Images For Reference Purposes Only us Self Referral IMG MAMMO PROCEDURES Final Resul t [facility]MO[facility] documented in this encounter Visit Diagnoses Not on filedocumented in this encounter Care Teams Jewel Stripper Relationship Specialty Start Date End Date Jose Juan Caraballo MD [address] [facility] [address] [place] [address] PCP - General 12/06/17 documented as of this encounter
--- OUTSIDE RECORDS SUMMARY | 2017-12-19 01:00 | XMS_ITS | Encounter Summary ---
Author Organization [facility] Healthcare Address [address] [place] [address] Care Team Providers Care Hand Laster Name Role Phone Jose Juan Caraballo MD Primary Care Provider Reason for Visit * Diagnostic Imaging (Routine) - Closed Specialty Diagnoses / Procedures Referred By Contac t Referred To Contact Procedures Breast Imaging Diagnostic Outside Reference Referral, Self Referral ID Status Reason Start Date Expiration Date Visits Re quested Visits Authorized [id number] Closed 01/11/2022 02/10/2023 1 1 Encounter Details Date Type Department Care Team (Late st Contact Info) Description 12/19/2017 Hospital Encounter [facility] [address] [place] [id number] Social History Tobacco Use Types Packs/Day Years [...] on file Legal Sex Female 6:58 PM LEATHER LACER Gender Identity Female 11/09/2021 8:55 AM LEATHER LACER Sexual Orientation Straight 11/09/2021 8: 55 AM LEATHER LACER documented as of this encounter Functional Status documented as of this encounter Plan of Treatment Not on file documented as of this encounter Procedures Procedure Name Priority Date/Time Associated Diagnosis Comments BREAST IMAGING MG DIAGNOSTIC OUTSIDE REFERENCE Routine 12/19/2017 12:00 AM LEATHER LACER documented in this encounter Results * Breast Imaging Diagnostic Outside Reference (12/19/2017 12:00 AM LEATHER LACER) Impressions RAD_MAMMO[facility] - 01/11/2022 2:17 PM CDT These images are for Reference purposes only and have not been reviewed by [facility] Radiology. There will be no report generated by a [facility] Radiologist. Narrative RAD_MAMMO[facility] - 01/11/2022 2:17 PM CDT EXAMINATION: Images For Reference Purposes Only us Self Referral IMG MAMMO PROCEDURES Final Resul t [facility]MO[facility] documented in this encounter Visit Diagnoses Not on filedocumented in this encounter Care Teams Hand Laster Relationship Specialty Start Date End Date Jose Juan Caraballo MD [address] [facility] [address] [place] [address] PCP - General 12/06/17 documented as of this encounter
--- OUTSIDE RECORDS SUMMARY | 2017-12-19 01:05 | XMS_ITS | Encounter Summary ---
Author Organization [facility] Healthcare Address [address] [place] [address] Care Team Providers Care Data Center Engineer Name Role Phone Jose Juan Caraballo MD Primary Care Provider Reason for Visit * Diagnostic Imaging (Routine) - Closed Specialty Diagnoses / Procedures Referred By Contac t Referred To Contact Procedures Breast Imaging US Outside Reference Referral, Self Referral ID Status Reason Start Date Expiration Date Visits Re quested Visits Authorized [id number] Closed 01/11/2022 02/10/2023 1 1 Encounter Details Date Type Department Care Team (Late st Contact Info) Description 12/19/2017 12:05 AM COVER MAT MACHINE OPERATOR Hospital Encounter [facility]iology [facility] [address] [place] [address] Social History Tobacco Use Types Packs/Day Years [...] on file Legal Sex Female 6:58 PM COVER MAT MACHINE OPERATOR Gender Identity Female 11/09/2021 8:55 AM COVER MAT MACHINE OPERATOR Sexual Orientation Straight 11/09/2021 8: 55 AM COVER MAT MACHINE OPERATOR documented as of this encounter Functional Status documented as of this encounter Plan of Treatment Not on file documented as of this encounter Procedures Procedure Name Priority Date/Time Associated Diagnosis Comments BREAST IMAGING US OUTSIDE REFERENCE Routine 12/19/2017 12:05 AM COVER MAT MACHINE OPERATOR documented in this encounter Results * Breast Imaging US Outside Reference (12/19/2017 12:05 AM COVER MAT MACHINE OPERATOR) Impressions RAD_MAMMO[facility] - 01/11/2022 2:18 PM CDT These images are for Reference purposes only and have not been reviewed by [facility] Radiology. There will be no report generated by a [facility] Radiologist. Narrative RAD_MAMMO_[facility] - 01/11/2022 2:18 PM CDT EXAMINATION: Images For Reference Purposes Only us Self Referral IMG MAMMO PROCEDURES Final Resul t [facility]MO[facility] documented in this encounter Visit Diagnoses Not on filedocumented in this encounter Care Teams Data Center Engineer Relationship Specialty Start Date End Date Jose Juan Caraballo MD [address] [facility] [address] [place] [address] PCP - General 12/06/17 documented as of this encounter
--- OUTSIDE RECORDS SUMMARY | 2018-07-20 | XMS_ITS | Encounter Summary ---
Author Organization [facility] Healthcare Address [address] [place] [address] Care Team Providers Care Lead Presser Name Role Phone Jose Juan Caraballo MD Primary Care Provider Reason for Visit * Diagnostic Imaging (Routine) - Closed Specialty Diagnoses / Procedures Referred By Contac t Referred To Contact Procedures Breast Imaging Diagnostic Outside Reference Referral, Self Referral ID Status Reason Start Date Expiration Date Visits Re quested Visits Authorized [id number] Closed 01/11/2022 02/10/2023 1 1 Encounter Details Date Type Department Care Team (Late st Contact Info) Description 07/20/[address] [facility]iology [facility] [address] [place] [phone] Social History Tobacco Use Types Packs/Day Years [...] on file Legal Sex Female 6:58 PM CAFE HELPER Gender Identity Female 11/09/2021 8:55 AM CAFE HELPER Sexual Orientation Straight 11/09/2021 8: 55 AM CAFE HELPER documented as of this encounter Functional Status documented as of this encounter Plan of Treatment Not on file documented as of this encounter Procedures Procedure Name Priority Date/Time Associated Diagnosis Comments BREAST IMAGING MG DIAGNOSTIC OUTSIDE REFERENCE Routine 07/20/2018 12:00 AM CDT documented in this encounter Results * Breast Imaging Diagnostic Outside Reference (07/20/2018 12:00 AM CDT) Impressions RAD_MAMMO[facility] - 01/11/2022 2:17 PM CDT These images are for Reference purposes only and have not been reviewed by [facility] Radiology. There will be no report generated by a [facility] Radiologist. Narrative RAD_MAMMO_[facility] - 01/11/2022 2:17 PM CDT EXAMINATION: Images For Reference Purposes Only us Self Referral IMG MAMMO PROCEDURES Final Resul t RAD[facility]MO[facility] documented in this encounter Visit Diagnoses Not on filedocumented in this encounter Care Teams Lead Presser Relationship Specialty Start Date End Date Jose Juan Caraballo MD [address] [facility] [address] [place] [address] PCP - General 12/06/17 documented as of this encounter
--- OUTSIDE RECORDS SUMMARY | 2018-07-20 00:05 | XMS_ITS | Encounter Summary ---
Author Organization [facility] Healthcare Address [address] [place] [address] Care Team Providers Care Industrial Therapist Name Role Phone Jose Juan Caraballo MD Primary Care Provider Reason for Visit * Diagnostic Imaging (Routine) - Closed Specialty Diagnoses / Procedures Referred By Contac t Referred To Contact Procedures Breast Imaging US Outside Reference Referral, Self Referral ID Status Reason Start Date Expiration Date Visits Re quested Visits Authorized [id number] Closed 01/11/2022 02/10/2023 1 1 Encounter Details Date Type Department Care Team (Late st Contact Info) Description 07/20/2018 12:05 AM CDT Hospital Encounter [facility] [address] [place] [phone] Social History Tobacco Use Types Packs/Day Years [...] on file Legal Sex Female 6:58 PM DIE CAST 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 Gender Identity Female 11/09/2021 8:55 AM DIE CAST 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 Sexual Orientation Straight 11/09/2021 8: 55 AM DIE CAST 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 documented as of this encounter Functional Status documented as of this encounter Plan of Treatment Not on file documented as of this encounter Procedures Procedure Name Priority Date/Time Associated Diagnosis Comments BREAST IMAGING US OUTSIDE REFERENCE Routine 07/20/2018 12:05 AM CDT documented in this encounter Results * Breast Imaging US Outside Reference (07/20/2018 12:05 AM CDT) Impressions RAD_MAMMO[facility] - 01/11/2022 2:18 PM CDT These images are for Reference purposes only and have not been reviewed by [facility] Radiology. There will be no report generated by a [facility] Radiologist. Narrative RAD_MAMMO_[facility] - 01/11/2022 2:18 PM CDT EXAMINATION: Images For Reference Purposes Only us Self Referral IMG MAMMO PROCEDURES Final Resul t [facility]MO[facility] documented in this encounter Visit Diagnoses Not on filedocumented in this encounter Care Teams Industrial Therapist Relationship Specialty Start Date End Date Jose Juan Caraballo MD [address] [facility] [address] [place] [address] PCP - General 12/06/17 documented as of this encounter
--- OUTSIDE RECORDS SUMMARY | 2019-08-08 | XMS_ITS | Encounter Summary ---
Author Organization [facility] Healthcare Address [address] [place] [address] Care Team Providers Care Fountain Dispenser Name Role Phone Jose Juan Caraballo MD Primary Care Provider Reason for Visit * Diagnostic Imaging (Routine) - Closed Specialty Diagnoses / Procedures Referred By Contac t Referred To Contact Diagnoses Screening mammogram for breast cancer Procedures Breast Imaging Screening Outside Reference Referral, Self Referral ID Status Reason Start Date Expiration Date Visits Re quested Visits Authorized [id number] Closed 01/11/2022 02/10/2023 1 1 Encounter Details Date Type Department Care Team (Late st Contact Info) Description 08/08/2019 Hospital Encounter [facility]iology [facility] [address] [place] [phone] Social History Tobacco Use Types Packs/Day Years [...] on file Legal Sex Female 6:58 PM LIFE EDUCATOR Gender Identity Female 11/09/2021 8:55 AM LIFE EDUCATOR Sexual Orientation Straight 11/09/2021 8: 55 AM LIFE EDUCATOR documented as of this encounter Functional Status documented as of this encounter Plan of Treatment Not on file documented as of this encounter Procedures Procedure Name Priority Date/Time Associated Diagnosis Comments BREAST IMAGING MG SCREENING OUTSIDE REFERENCE Schedule Routine, Read Routine (OP Routine) 08/08/2019 12:00 AM CDT Screening mammogram for breast cancer documented in this encounter Results * Breast Imaging Screening Outside Reference (08/08/2019 12:00 AM CDT) Impressions RAD_MAMMO[facility] - 01/11/2022 2:15 PM CDT These images are for Reference purposes only and have not been reviewed by [facility] Radiology. There will be no report generated by a [facility] Radiologist. Narrative RAD_MAMMO_[facility] - 01/11/2022 2:15 PM CDT EXAMINATION: Images For Reference Purposes Only us Self Referral IMG MAMMO PROCEDURES Final Resul t RAD_[facility]MO[facility] documented in this encounter Visit Diagnoses Not on filedocumented in this encounter Care Teams Fountain Dispenser Relationship Specialty Start Date End Date Jose Juan Caraballo MD [address] [facility] [address] [place] [address] PCP - General 12/06/17 documented as of this encounter
--- OUTSIDE RECORDS SUMMARY | 2020-11-02 01:00 | XMS_ITS | Encounter Summary ---
Author Organization [facility] Healthcare Address [address] [place] [address] Care Team Providers Care Mobile Homes Repairer Name Role Phone Jose Juan Caraballo MD Primary Care Provider Reason for Visit * Diagnostic Imaging (Routine) - Closed Specialty Diagnoses / Procedures Referred By Contac t Referred To Contact Procedures Breast Imaging Screening Outside Reference Referral, Self Referral ID Status Reason Start Date Expiration Date Visits Re quested Visits Authorized [id number] Closed 01/11/2022 02/10/2023 1 1 Encounter Details Date Type Department Care Team (Late st Contact Info) Description 11/02/2020 Hospital Encounter [facility] [address] [place] [phone] Social History Tobacco Use Types Packs/Day Years [...] on file Legal Sex Female 6:58 PM SOLDER DEPOSIT OPERATOR Gender Identity Female 11/09/2021 8:55 AM SOLDER DEPOSIT OPERATOR Sexual Orientation Straight 11/09/2021 8: 55 AM SOLDER DEPOSIT OPERATOR documented as of this encounter Functional Status documented as of this encounter Plan of Treatment Not on file documented as of this encounter Procedures Procedure Name Priority Date/Time Associated Diagnosis Comments BREAST IMAGING MG SCREENING OUTSIDE REFERENCE Routine 11/02/2020 12:00 AM SOLDER DEPOSIT OPERATOR documented in this encounter Results * Breast Imaging Screening Outside Reference (11/02/2020 12:00 AM SOLDER DEPOSIT OPERATOR) Impressions RAD_MAMMO[facility] - 01/11/2022 2:16 PM CDT These images are for Reference purposes only and have not been reviewed by [facility] Radiology. There will be no report generated by a [facility] Radiologist. Narrative RAD_MAMMO_[facility] - 01/11/2022 2:16 PM CDT EXAMINATION: Images For Reference Purposes Only us Self Referral IMG MAMMO PROCEDURES Final Resul t [facility] documented in this encounter Visit Diagnoses Not on filedocumented in this encounter Care Teams Mobile Homes Repairer Relationship Specialty Start Date End Date Jose Juan Caraballo MD [address] [facility] [address] [place] [address] PCP - General 12/06/17 documented as of this encounter
--- OUTSIDE RECORDS SUMMARY | 2020-11-10 01:00 | XMS_ITS | Encounter Summary ---
Author Organization [facility] Healthcare Address [address] [place] [address] Care Team Providers Care Insurance Adviser Name Role Phone Jose Juan Caraballo MD Primary Care Provider Reason for Visit * Diagnostic Imaging (Routine) - Closed Specialty Diagnoses / Procedures Referred By Contac t Referred To Contact Procedures Breast Imaging Diagnostic Outside Reference Referral, Self Referral ID Status Reason Start Date Expiration Date Visits Re quested Visits Authorized [id number] Closed 01/11/2022 02/10/2023 1 1 Encounter Details Date Type Department Care Team (Late st Contact Info) Description 11/10/2020 Hospital Encounter [facility] [address] [place] [id number] Social History Tobacco Use Types Packs/Day Years [...] on file Legal Sex Female 6:58 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 Gender Identity Female 11/09/2021 8:55 AM COOK BOX FILLER Sexual Orientation Straight 11/09/2021 8: 55 AM COOK BOX FILLER documented as of this encounter Functional Status documented as of this encounter Plan of Treatment Not on file documented as of this encounter Procedures Procedure Name Priority Date/Time Associated Diagnosis Comments BREAST IMAGING MG DIAGNOSTIC OUTSIDE REFERENCE Routine 11/10/2020 12:00 AM COOK BOX FILLER documented in this encounter Results * Breast Imaging Diagnostic Outside Reference (11/10/2020 12:00 AM COOK BOX FILLER) Impressions [facility]_M[facility]MO[facility] - 01/11/2022 2:16 PM CDT These images are for Reference purposes only and have not been reviewed by [facility] Radiology. There will be no report generated by a [facility] Radiologist. Narrative [facility]MAMMO[facility] - 01/11/2022 2:16 PM CDT EXAMINATION: Images For Reference Purposes Only us Self Referral IMG MAMMO PROCEDURES Final Resul t [facility] documented in this encounter Visit Diagnoses Not on filedocumented in this encounter Care Teams Insurance Adviser Relationship Specialty Start Date End Date Jose Juan Caraballo MD [address] [facility] [address] [place] [address] PCP - General 12/06/17 documented as of this encounter
--- OUTSIDE RECORDS SUMMARY | 2020-11-10 01:05 | XMS_ITS | Encounter Summary ---
Author Organization [facility] Healthcare Address [address] [place] [address] Care Team Providers Care Almond Blancher Name Role Phone Jose Juan Caraballo MD Primary Care Provider Reason for Visit * Diagnostic Imaging (Routine) - Closed Specialty Diagnoses / Procedures Referred By Contac t Referred To Contact Procedures Breast Imaging US Outside Reference Referral, Self Referral ID Status Reason Start Date Expiration Date Visits Re quested Visits Authorized [id number] Closed 01/11/2022 02/10/2023 1 1 Encounter Details Date Type Department Care Team (Late st Contact Info) Description 11/10/2020 12:05 AM CORE DRILLER HELPER Hospital Encounter [facility] Radiology [facility] [address] [place] [id number] Social History Tobacco Use Types Packs/Day Years [...] on file Legal Sex Female 6:58 PM CORE DRILLER HELPER Gender Identity Female 11/09/2021 8:55 AM CORE DRILLER HELPER Sexual Orientation Straight 11/09/2021 8: 55 AM CORE DRILLER HELPER documented as of this encounter Functional Status documented as of this encounter Plan of Treatment Not on file documented as of this encounter Procedures Procedure Name Priority Date/Time Associated Diagnosis Comments BREAST IMAGING US OUTSIDE REFERENCE Routine 11/10/2020 12:05 AM CORE DRILLER HELPER documented in this encounter Results * Breast Imaging US Outside Reference (11/10/2020 12:05 AM CORE DRILLER HELPER) Impressions [facility] - 01/11/2022 2:18 PM CDT These images are for Reference purposes only and have not been reviewed by [facility] Radiology. There will be no report generated by a [facility] Radiologist. Narrative [facility] - 01/11/2022 2:18 PM CDT EXAMINATION: Images For Reference Purposes Only us Self Referral IMG MAMMO PROCEDURES Final Resul t [facility] documented in this encounter Visit Diagnoses Not on filedocumented in this encounter Care Teams Almond Blancher Relationship Specialty Start Date End Date Jose Juan Caraballo MD [address] [facility] [address] [place] [address] PCP - General 12/06/17 documented as of this encounter
--- OUTSIDE RECORDS SUMMARY | 2025-08-15 14:24 | XMS_ITS | Encounter Summary ---
Author Organization [facility] Address [address] [place] [address] Care Team Providers Care Final Rail Cutter Name Role Phone Jose Juan Caraballo MD Primary Care Provider [phone] Encounter Details Date Type Department Care Team (Late st Contact Info) Description 06/28/2024 Lab Requisition [facility] - DermPath Lab [address] [place] [id number] Danny Garcia MD [facility] [address] [place] [phone] Neoplasm of uncertain behavior of skin Social History Tobacco Use Types Packs/Day Years Used Date Smoking Tobacco: Never Assessed Comments Unknown Sex and Gender Information Value Date Recorded Sex Assigned at Not on file Legal Sex Female 6:21 AM [employer]STER [employer] Gender Identity Not on file Sexual Orientation Not on file documented as of this encounter Plan of Treatment Not on file documented as of this encounter Procedures Procedure Name Priority Date/Time Associated Diagnosis Comments DERMATOPATHOLOGY Routine 06/28/2024 3:33 AM CDT Neoplasm of uncertain behavior of skin documented in this encounter Results * DERMATOPATHOLOGY (06/28/2024 3:33 AM CDT) Case Report Dermatopathology Report Case: [id number] Authorizing Provider: Danny Garcia MD Collected: 06/28/2024 03:33 AM Ordering Location: [facility] - Received: 07/01/2024 12:25 PM DermPath Lab Pathologist: Remy Estrada MD Specimens: A) - Skin, left anterior neck B) - Skin, left malar cheek C) - Skin, nasal root 4 2:49 PM CDT DERMATOPATHOLOGY LABORATORY Final Diagnosis Specimen A. SKIN, left anterior neck: SOLAR LENTIGO (L81.4) (see microscopic description) Specimen B. SKIN, left malar cheek: ACTINIC KERATOSIS; EXTENDING TO THE BASE OF THE SPECIMEN (L57.0) (see microscopic description and comment) Specimen C. SKIN, nasal root: ACTINIC KERATOSIS, ERODED (L57.0) 2:49 PM CDT DERMATOPATHOLOGY LABORATORY at 1449 CDT Clinical History A: Lentigo vs Lentigo Maligna B-C: BCC 2:49 PM CDT DERMATOPATHOLOGY LABORATORY Gross Description Specimen A: Received is one formalin filled container labeled with the patient's name and designated left anterior neck. The specimen consists of a shave biopsy measuring 5x3x1 mm. Jar 0. Specimen B: Received is one formalin filled container labeled with the patient's name and designated left malar cheek. The specimen consists of a shave biopsy measuring 4x3x1 mm. Jar 0. Specimen C: Received is one formalin filled container labeled with the patient's name and designated nasal root. The specimen consists of a shave biopsy measuring 5x3x1 mm. Jar 0. 2:49 PM CDT DERMATOPATHOLOGY LABORATORY Microscopic Description Specimen A. SKIN, left anterior neck: There is orthokeratosis. There is a slight increase in epidermal thickness with lentiginous buds of hyperpigmented keratinocytes. The number of melanocytes is only mildly increased. In the dermis, there is basophilic degeneration of elastic fibers. Additional deeper sections were obtained and reviewed. Specimen B. SKIN, left malar cheek: There is focal parakeratosis. The lower half of the epidermis shows disorderly maturation of keratinocytes with nuclear pleomorphism. This process extends to the base of the specimen. COMMENT: A squamous cell carcinoma cannot be ruled out. Specimen C. SKIN, nasal root: There is alternating orthokeratosis and parakeratosis. The epidermis is focally eroded. Along the undersurface of the epidermis, there are buds of atypical keratinocytes in a disorderly arrangement. 4 2:49 PM CDT DERMATOPATHOLOGY LABORATORY Disclaimer An external and internal positive and negative controls are appropriate for the histochemical, immunohistochemical and immunofluorescence stain(s) in this case (if any), except where stated explicitly. The performance characteristics of the stain(s) cited in this report were developed and its performance characteristic determined by the Dermatopathology Laboratory at [facility], directed by Dr. Darshana Estrada. These tests need not be, and therefore are not, approved by the [place] Food and Drug Administration. The tests are used for clinical purposes. Billing Codes Specimen Charges Stain Charges 64673 [id number] 1 1 1 4 2:49 PM CDT DERMATOPATHOLOGY LABORATORY Embedded Images 4 2:49 PM CDT DERMATOPATHOLOGY LABORATORY Pathology/Cytology TISSUE SPECIMEN FROM SKIN / Unknown 06/28/2024 3:33 AM CDT 07/01/2024 12:25 PM CDT Miscellaneous samples (specimen) TISSUE SPECIMEN FROM SKIN / Unknown 06/28/2024 3:33 AM CDT 07/01/2024 12:25 PM CDT Miscellaneous samples (specimen) TISSUE SPECIMEN FROM SKIN / Unknown 06/28/2024 3:33 AM CDT 07/01/2024 12:25 PM CDT Danny Garcia MD LAB - PATHOLOGY/CYTOLOGY BALWINDERE LYDIA Final Result DERMATOPATHOLOGY LABORATORY [facility] - Department of Dermatology [facility] [address] [place] [address], [address] [phone] documented in this encounter Visit Diagnoses Diagnosis Neoplasm of uncertain behavior of skin documented in this encounter Care Teams Final Rail Cutter Relationship Specialty Start Date End Date Jose Juan Caraballo MD [address] [place] [address] PCP - General Family Medicine 07/22/17 documented as of this encounter
--- OUTSIDE RECORDS SUMMARY | 2025-08-15 14:24 | XMS_ITS | Clinical Summary ---
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 Name Role Phone Jose Juan Caraballo MD Primary Care Provider Darci Graves MD Unavailable [phone] Allergies Active Allergy Reactions Criticality Noted Date Comments Penicillin G Rash Medium 12/04/2018 Penicillins Other (See comments),Rash Medium 3 Medications montelukast (SINGULAIR) 10 mg tablet Take 1 tablet (10 mg total) by mouth nightly 1 Active losartan-hydroCH LOROthiazide (HYZAAR) 50-12.5 mg per tablet Take 1 tablet by mouth daily 50-12.5mg Active multivitamin capsule Take 1 capsule by mouth nightly Active calcium carbonate (CALCIUM 600 ORAL) Take 1 tablet by mouth daily Active omega 5-pem-wun-fish oil 1,600-500-800 mg/5 mL liquid Take 1 Dose by mouth daily Active cholecalciferol (VITAMIN D-3) 5,000 unit tablet Take 1 tablet (5,000 Units total) by mouth daily Active Lactobacillus acidophilus (PROBIOTIC ORAL) Take 1 each by mouth daily Active melatonin 10 mg tablet Take 1 tablet (10 mg total) by mouth nightly as needed (sleep) Active meloxicam (MOBIC) 15 mg tablet Take 1 tablet (15 mg total) by mouth daily as needed for pain 5 Active INVESTIGATIONAL MEDICATION - FOR HISTORICAL USE ONLY Inject 2 mg under the skin once a week Retatruride GLP-3 inject 2 mg weekly on Active Active Problems Problem Noted Date Diagnosed Date Primary localized osteoarthritis of pelvic regio n and thigh 03/20/2025 Abnormal dexamethasone suppression test 06/12/20 Age-related osteoporosis wit hout current pathological fracture 06/12/2023 Fracture of superior pubic ramus 05/05/2023 Other specified fracture of right pubis, subsequent encounter for fracture with routine healing 05/05/2023 Pain of left hand 04/12/2023 Pain in pelvis 04/03/2023 Pain of right hip joint 01/20/2023 Arthralgia of left ankle 11/10/2022 Vaginal atrophy 11/11/2021 RBBB 09/27/2021 PVC (premature ventricular contraction) 09/27/20 Essential hypertension 09/27/2021 Preop cardiovascular exam 09/27/2021 Adhesive capsulitis of shoulder 02/07/2017 Pain of cervical spine 02/07/2017 Pain in the shoulder 02/06/2017 Encounters Date Type Department Care Team Description 08/05/[address] [facility] Medicine Bone Health [address] [place] [address] [address] [place] [address] Rebecca Andrade MD Age-related osteoporosis without current pathological fracture (Primary Dx) 08/05/[address] [facility] Medicine Bone [address] [address] Rebecca Andrade MD 07/31/2025 9:25 AM CDT Lab [address] [address] Age-related osteoporosis without current pathological fracture 07/29/[address] [facility] Medicine [facility] [address] [place] [address] [address] [address] Rebecca Andrade MD Age-related osteoporosis without current pathological fracture (Primary Dx) 07/22/2025 8:30 AM CDT Lab [address] [address] Age-related osteoporosis without current pathological fracture 07/17/2025 10:17 AM CDT - 07/17/2025 11:59 PM CDT Hospital Encounter [address] [address] Solitary pulmonary nodule Discharge Disposition: Discharge to home or self care 07/16/2025 Orders Only [address] Medical Office Building [address] [place] [address] Rebecca Andrade MD Age-related osteoporosis without current pathological fracture (Primary Dx) 07/14/2025 Results Follow-Up [address] Medical Office [address] [place] [phone] Rebecca Andrade MD Tissue transglutaminase IgA (TGG-IgA Ab), IgA, Phosphorus, Additional followed-up results: 6 07/14/[address] [place] [phone] Rebecca Andrade MD PA for evenity 07/14/2025 Orders Only [address] [place] [id number] Rebecca Andrade MD 07/09/2025 12:05 PM CDT Lab [facility] [address] [place] [address] Age-related osteoporosis without current pathological fracture; History of compression fracture of spine; Closed fracture of second lumbar vertebra with routine healing, unspecified fracture morphology, subsequent encounter 07/09/2025 11:00 AM CDT Office Visit [facility] [address] [place] [address] Rebecca Andrade MD Age-related osteoporosis without current pathological fracture (Primary Dx); History of compression fracture of spine; Closed fracture of second lumbar vertebra with routine healing, unspecified fracture morphology, subsequent encounter 07/09/2025 10:30 AM CDT Clinical Support [facility] [address] [place] [address] Age-related osteoporosis without current pathological fracture 07/09/[address] Office [address] [place] [address] Rebecca Alford MD 05/27/2025 Telephone [facility] Emergency Department [address] [place] [address] Ava Kyle RN 05/23/2025 12:28 PM CDT - 05/23/2025 8:19 PM CDT Emergency [facility] Emergency Department [address] [place] [address] Senthil Olivas, Abdominal pain, generalized (Primary Dx); Constipation, unspecified constipation type; Proctitis Discharge Disposition: Discharge to home or self care from Last 3 Months Surgical History Surgery Date Site/Laterality Comments LAPAROSCOPY KYPHOPLASTY LUMBAR 04/09/2025 N/A Medical History Medical History Date Comments Asthma Hyperlipidemia Hypertension Sleep apnea TIA (transient ischemic attack) Diabetes mellitus Osteoporosis Family History Medical History Relation Name Comments Diabetes Brother Family history of diabetes mellitus - (Added by TW Conv) Broken bones Father Cancer Father Family history of malignant neoplasm - (Added by TW Conv) Diabetes Father Family history of diabetes mellitus - (Added by TW Conv) Broken bones Mother Cancer Mother Family history of malignant neoplasm - (Added by TW Conv) Hip fracture Neg Hx Kyphosis Neg Hx Osteoporosis Neg Hx Relation Name Status Comments Brother Alive Father (Age 74) Mother (Age 57) Social History Tobacco Use Types Packs/Day Years [...] on file Legal Sex Female 6:58 PM [employer] Gender Identity Female 11/09/2021 8:55 AM [employer] Sexual Orientation Straight 11/09/2021 8: 55 AM [employer]ARM [employer] Obstetrics History Para Term AB IAB SAB Ectopic Multiple Livin g Live Births 0 0 0 0 0 0 0 0 0 0 0 Last Filed Vital Signs Vital Sign Reading Time Taken Comments Blood Pressure 153/51 05/23/2025 6:35 PM CDT Pulse 89 05/23/2025 6:35 PM CDT Temperature 36.4 C (97.5 F) 05/23/2025 12:39 PM CDT Respiratory Rate 20 05/23/2025 6:35 PM CDT Oxygen Saturation 100% 05/23/2025 6:35 PM CDT Inhaled Oxygen Concentration - - Weight 74.3 kg (163 lb 12.8 oz) 025 11:01 AM CDT Height 173.2 cm (5' 8.2) 07/09/2025 11 :01 AM CDT Body Mass Index 24.76 07/09/2025 11:01 AM CDT Plan of Treatment Health Maintenance Due Date Last Done Comments Depression Screening 1955 Hepatitis C Screening 1955 DTaP/Tdap/Td Vaccine (1 - Tdap) 1966 Hepatitis B Screening 1973 Well Visit 65+ 2020 Pneumococcal vaccine 65+ (2 of 2 - PCV) 09/13/2022 09/13/2021 Covid-19 Vaccine (5 - 2024-2 6 season) 2025 08/10/2022, 07/29/2021, 12/15/2020, Additional history exists Breast Cancer Screening-Mammogram 01/17/2026 01/17/2025, 01/16/2024, 01/12/2023, Additional history exists Fall Risk Assessment 04/09/2026 04/09/2025 Osteoporosis Screening-Bone Density Scan 07/09/2027 07/09/2025, 06/12/2024, 06/07/2023, Additional history exists Colon Cancer Screening-Colonoscopy 11/17/2027 11/17/2017 Colon Cancer Screening-CT Colonography Discontinued 11/17/2017 Colon Cancer Screening-DNA Stool Discontinued 11/17/19 18 Colon Cancer Screening-FIT Discontinued 11/17/2017 Colon Cancer Screening-Sigmoidoscopy Discontinued 11/17/2017 Zoster Vaccine Completed 01/28/2021, 10/28/2020 Influenza Vaccine Completed 07/04/2025, , 06/29/2021, Additional history exists Procedures Procedure Name Priority Date/Time Associated Diagnosis Comments CALCIUM LEVEL Routine 07/31/2025 9:31 AM CDT Age-related osteoporosis without current pathological fracture CALCIUM, IONIZED Routine 07/31/2025 9:31 AM CDT Age-related osteoporosis without current pathological fracture PTH Routine 07/31/2025 9:31 AM CDT Age-related osteoporosis without current pathological fracture CREATININE, URINE, 24 HOUR RESULT Routine 07/22/2025 8:41 AM CDT Age-related osteoporosis without current pathological fracture VOLUME AND PERIOD, URINE, 24 HOUR Routine 07/22/2025 8:41 AM CDT Age-related osteoporosis without current pathological fracture CALCIUM, URINE, 24 HOUR RESULT Routine 07/22/2025 8:41 AM CDT Age-related osteoporosis without current pathological fracture CALCIUM, URINE, 24 HOUR Routine 07/22/2025 8:41 AM CDT Age-related osteoporosis without current pathological fracture CT CHEST WO CONTRAST Schedule Routine, Read Routine (OP Routine) 07/17/2025 10:29 AM CDT Solitary pulmonary nodule CALCIUM, IONIZED POC - [facility] Routine 07/09/2025 1:12 PM CDT EGFR Routine 07/09/2025 12:10 PM CDT Age-related osteoporosis without current pathological fracture History of compression fracture of spine Closed fracture of second lumbar vertebra with routine healing, unspecified fracture morphology, subsequent encounter VITAMIN D 25 HYDROXY Routine 07/09/2025 12:10 PM CDT Age-related osteoporosis without current pathological fracture History of compression fracture of spine Closed fracture of second lumbar vertebra with routine healing, unspecified fracture morphology, subsequent encounter COMPREHENSIVE METABOLIC PANEL Routine 07/09/2025 12:10 PM CDT Age-related osteoporosis without current pathological fracture History of compression fracture of spine Closed fracture of second lumbar vertebra with routine healing, unspecified fracture morphology, subsequent encounter PTH Routine 07/09/2025 12:10 PM CDT Age-related osteoporosis without current pathological fracture History of compression fracture of spine Closed fracture of second lumbar vertebra with routine healing, unspecified fracture morphology, subsequent encounter PROTEIN ELECTROPHORESIS, WITH REFLEX, SERUM Routine 07/09/2025 12:10 PM CDT Age-related osteoporosis without current pathological fracture History of compression fracture of spine Closed fracture of second lumbar vertebra with routine healing, unspecified fracture morphology, subsequent encounter PHOSPHORUS Routine 07/09/2025 12:10 PM CDT Age-related osteoporosis without current pathological fracture History of compression fracture of spine Closed fracture of second lumbar vertebra with routine healing, unspecified fracture morphology, subsequent encounter IGA Routine 07/09/2025 12:10 PM CDT Age-related osteoporosis without current pathological fracture History of compression fracture of spine Closed fracture of second lumbar vertebra with routine healing, unspecified fracture morphology, subsequent encounter TISSUE TRANSGLUTAMINASE, IGA Routine 07/09/2025 12:10 PM CDT Age-related osteoporosis without current pathological fracture History of compression fracture of spine Closed fracture of second lumbar vertebra with routine healing, unspecified fracture morphology, subsequent encounter DEXA TBS AXIAL SKELETON BONE DENSITY 1 OR MORE SITES Schedule Routine, Read Routine (OP Routine) 07/09/2025 10:37 AM CDT Age-related osteoporosis without current pathological fracture CT ABDOMEN PELVIS W CONTRAST ED 05/23/2025 1:42 PM CDT COMPREHENSIVE METABOLIC PANEL STAT 05/23/2025 12:45 PM CDT EGFR STAT 05/23/2025 12:45 PM CDT DIFFERENTIAL AUTO STAT 05/23/2025 12: 45 PM CDT LIPASE STAT 05/23/2025 12:45 PM CDT CBC WITH AUTO DIFFERENTIAL STAT 05/23/2025 12:45 PM CDT SCREENING MAMMOGRAM BILATERAL W CHRISTOPHER Schedule Routine, Read Routine (OP Routine) 01/17/2025 10:50 AM CDT Screening mammogram, encounter for CT VIRTUAL COLONOSCOPY DIAGNOSTIC WO CONTRAST Routine 11/17/2017 3:30 PM FARM AP[employer]ER from Last 3 Months or Most Recently Relevant to Health Maintenance Results * Calcium, ionized (07/31/2025 9:31 AM CDT) Calcium, Ionized 5.07 4.50 - 5.10 mg/dL Blood 07/31/2025 9:31 AM CDT 07/31/2025 11:17 AM CDT Rebecca Andrade MD LAB BLOOD ORDERABLES Final Result Performing Organization Address [facility] de Phone Number [address] [place] [address] * PTH (07/31/2025 9:31 AM CDT) [facility] PTH 47 15 - 65 pg/mL Blood 07/31/2025 9:31 AM CDT 07/31/2025 11:21 AM CDT Rebecca Andrade MD LAB BLOOD ORDERABLES Final Result Performing Organization Address City/[facility] Co de Phone Number [address] [place] [address] * Calcium level (07/31/2025 9:31 AM CDT) Pathologist [facility] Calcium 9.9 8.5 - 10.3 mg/dL Blood 07/31/2025 9:31 AM CDT 07/31/2025 11:21 AM CDT Rebecca Andrade MD LAB BLOOD ORDERABLES Final Result Performing Organization Address [facility] Co de Phone Number [address] [place] [address] * Volume and period, urine, 24 hour (07/22/2025 8:41 AM CDT) Volume, ur 2,600 mL Period, Urine Collection 1,455 min [facility] Urine 07/22/2025 8:41 AM CDT 07/22/2025 10:28 AM CDT Rebecca Andrade MD LAB URINE ORDERABLES Final Result Performing Organization Address [facility] de Phone Number [address] [place] [address] * Creatinine, urine, 24 hour (07/22/2025 8:41 AM CDT) Creatinine, 24 hr, ur 0.9 0.6 - 1.5 g/24H Urine 07/22/2025 8:41 AM CDT 07/22/2025 10:28 AM CDT us Rebecca Andrade MD LAB URINE ORDERABLES Final Result Performing Organization Address [facility] Co de Phone Number [address] [place] [address] * Calcium, urine, 24 hour (07/22/2025 8:41 AM CDT) Calcium, 24 hr ur 283 25 - 300 mg/24H Urine 07/22/2025 8:41 AM CDT 07/22/2025 10:28 AM CDT Rebecca Andrade MD LAB URINE ORDERABLES Final Result Performing Organization Address [facility] Co de Phone Number [address] [place] [address] * CT Chest WO Contrast (07/17/2025 10:29 AM CDT) Anatomical Region Laterality Modality Body N/A Computed Tomogra phy 07/21/2025 10:4 8 AM CDT Narrative 07/21/2025 10:55 AM CDT EXAM DESCRIPTION: CT CHEST WO CONTRAST REASON FOR STUDY: R91.1 Follow up pulmonary nodule. No surgery to heart, lungs, or chest. Non-smoker. TECHNIQUE: CT scan of the chest performed without intravenous contrast using helical scanning technique. Reconstructed coronal and sagittal MPR images reviewed. All images stored on PACS. Automated exposure control was used as a dose optimization technique for this examination. COMPARISON: 05/23/2025 REFERENCE: Per ACR white paper recommendations, unless otherwise specified no follow-up imaging is recommended for incidental renal and adrenal lesions per consensus recommendations based on imaging criteria. Further lab evaluation could be pursued based on clinical findings. FINDINGS: The sensitivity for detection of solid visceral lesions is diminished without the use of intravenous contrast. HARDWARE/LINES/TUBES: None. VASCULATURE: Multifocal atherosclerotic changes of the thoracic aorta and its major branches without aneurysm. MEDIASTINUM/HEART: Heart size within normal limits. No significant pericardial effusion. Esophagus is unremarkable. CORONARY ARTERY CALCIFICATION: No significant coronary atherosclerotic calcifications. LYMPH NODES: No pathologically enlarged thoracic lymphadenopathy. AIRWAY: Central airways are patent. LUNGS: No focal consolidation, pneumothorax, or pleural effusion. Subsegmental atelectasis/scarring. Small pulmonary nodules including: Unchanged 5 mm nodule in the posterolateral left lower lobe (4; 82). Unchanged 5 mm anterior left lower lobe pulmonary nodule (4; 86). 4 mm nodular opacity in the posteromedial right upper lobe (4; 28). Punctate calcified pulmonary nodule in the posterior right lower lobe which may reflect sequela of prior granulomatous disease (4; 85). 3 mm lateral right lower lobe pulmonary nodule (4; 64). 2 mm subpleural anterolateral right upper lobe pulmonary nodule (4; 46). UPPER ABDOMEN: Early morphologic changes of chronic liver disease including lobar redistribution, fissural widening, lobular contour, and notching of the posterior right hepatic lobe. No definite acute abnormality within the visualized abdomen. BONES/SOFT TISSUES: Similar-appearing chronic compression deformity of L2 with osseous retropulsion resulting in moderate spinal canal narrowing. Status post kyphoplasty of L2. Mild multilevel degenerative changes of the visualized spine. No aggressive appearing osseous lesions. No acute osseous abnormality. Normal-appearing thyroid. IMPRESSION: 1. Pulmonary nodules measuring up to 5 mm. Per Fleischner Society Guidelines, no follow-up needed if patient is low-risk (and has no known or suspected primary neoplasm). Non-contrast chest CT can be considered in 12 months if patient is high-risk. 2. Early morphologic changes of chronic liver disease. Recommend correlation with clinical history and risk factors. 3. Additional incidental and chronic findings as above. THIS IS AN ELECTRONICALLY VERIFIED FINAL REPORT 07/21/2025 10:55 AM - Electronically signed by Gerson Jordan M.D. NS T: Report ID: [id number] Reading Location: [id number] Procedure Note Gerson Jordan MD - 07/21/2025 EXAM DESCRIPTION: CT CHEST WO CONTRAST REASON FOR STUDY: R91.1 Follow up pulmonary nodule. No surgery to heart, lungs, or chest.Non-smoker. TECHNIQUE: CT scan of the chest performed without intravenous contrastusing helical scanning technique. Reconstructed coronal and sagittal MPR images reviewed. All images stored on PACS. Automated exposure control was usedas a dose optimization technique for this examination. COMPARISON: 05/23/2025 REFERENCE: Per ACR white paper recommendations, unless otherwise specifiedno follow-up imaging is recommended for incidental renal and adrenal lesionsper consensus recommendations based on imaging criteria. Further labevaluation could be pursued based on clinical findings. FINDINGS: The sensitivity for detection of solid visceral lesions is diminished without the use of intravenous contrast. HARDWARE/LINES/TUBES: None. VASCULATURE: Multifocal atherosclerotic changes of the thoracic aorta andits major branches without aneurysm. MEDIASTINUM/HEART: Heart size within normal limits. No significant pericardial effusion. Esophagus is unremarkable. CORONARY ARTERY CALCIFICATION: No significant coronary atherosclerotic calcifications. LYMPH NODES: No pathologically enlarged thoracic lymphadenopathy. AIRWAY: Central airways are patent. LUNGS: No focal consolidation, pneumothorax, or pleural effusion. Subsegmental atelectasis/scarring. Small pulmonary nodules including: Unchanged 5 mm nodule in the posterolateral left lower lobe (4; 82). Unchanged 5 mm anterior left lower lobe pulmonary nodule (4; 86). 4 mm nodular opacity in the posteromedial right upper lobe (4; 28). Punctate calcified pulmonary nodule in the posterior right lower lobewhich may reflect sequela of prior granulomatous disease (4; 85). 3 mm lateral right lower lobe pulmonary nodule (4; 64). 2 mm subpleural anterolateral right upper lobe pulmonary nodule (4; 46). UPPER ABDOMEN: Early morphologic changes of chronic liver diseaseincluding lobar redistribution, fissural widening, lobular contour, and notching ofthe posterior right hepatic lobe. No definite acute abnormality within the visualized abdomen. BONES/SOFT TISSUES: Similar-appearing chronic compression deformity of L2 with osseous retropulsion resulting in moderate spinal canal narrowing. Status post kyphoplasty of L2. Mild multilevel degenerative changes ofthe visualized spine. No aggressive appearing osseous lesions. No acuteosseous abnormality. Normal-appearing thyroid. IMPRESSION: 1. Pulmonary nodules measuring up to 5 mm. Per Fleischner Society Guidelines, no follow-up needed if patient is low-risk (and has no knownor suspected primary neoplasm). Non-contrast chest CT can be considered in 12 months if patient is high-risk. 2. Early morphologic changes of chronic liver disease. Recommendcorrelation with clinical history and risk factors. 3. Additional incidental and chronic findings as above. THIS IS AN ELECTRONICALLY VERIFIED FINAL REPORT 07/21/2025 10:55 AM - Electronically signed by Gerson MCKEON T: Report ID: [id number] Reading Location: [place] [address] [address] IMG CT PROCEDURES Final R esult * Calcium, Ionized POC - [facility] (07/09/2025 1:12 PM CDT) Calcium, Ionized 5.00 4.50 - 5.10 mg/dL Comment:Testing performed at [facility]. Blood 07/09/2025 1:12 PM CDT 07/09/2025 1:12 PM CDT us Rebecca Andrade MD LAB BLOOD ORDERABLES Final Result [facility] Department [place] [address] * eGFR (07/09/2025 12:10 PM CDT) eGFR >90 >=60 mL/min/1. 73 m2 Comment: Interpretive Data Reference Interval Normal >/= 90 mL/min/1.73m2 Mildly decreased* 60 - 89 mL/min/1.73m2 Mildly to moderately decreased 45 - 59 mL/min/1.73m2 Moderately to severely decreased 30 - 44 mL/min/1.73m2 Severely decreased 15 - 29 mL/min/1.73m2 Kidney Failure < 15 mL/min/1.73m2 *Relative to young adult level Estimated glomerular filtration rate is determined by the 2020 CKD-EPI equation recommended by the National Kidney [employer] (A Unifying Approach to GFR Estimation: Recommendations of the NKF-ASK Task Force on Reassessing the Inclusion of Race in Diagnosing Kidney Disease, JASN 2020). The CKD-EPI equation should not be used for patients with unstable renal function and has not been validated in children and those over 70. Current interpretive data was last reviewed 2021. Blood 07/09/2025 12:1 0 PM CDT 07/09/2025 2:20 PM CDT Rebecca Andrade MD LAB BLOOD ORDERABLES Final Result [facility] Department [place] [address] * Tissue transglutaminase IgA (TGG-IgA Ab) (07/09/2025 12:10 PM CDT) TTG ab, IgA <0.5 <=14.9 units/mL Comment: Interpretive data Negative: <15 units/mL Positive: > or equal to 15 units/mL Current interpretive data was last revised on 2017. Blood 07/09/2025 12:1 0 PM CDT 07/09/2025 2:12 PM CDT Rebecca Andrade MD LAB BLOOD ORDERABLES Final Result Performing Organization Address City/[facility]/ZIP Co de Phone Number [id number] [facility] [place] [address] * Vitamin D 25 hydroxy (07/09/2025 12:10 PM CDT) [facility] Vitamin D 25-OH 61 30 - 80 ng/mL Blood 07/09/2025 12:1 0 PM CDT 07/09/2025 2:12 PM CDT Rebecca Andrade MD LAB BLOOD ORDERABLES Final Result Performing Organization Address [facility] de Phone Number [id number] [facility] [place] [address] * Protein electrophoresis with reflex, serum with interpretation (07/09/2025 12:10 PM CDT) [facility] Protein, sr 6.9 6.2 - 8.2 g/dL Albumin 4.5 3.2 - 5.0 g/dL [facility] Alpha-1 globulin 0.3 0.2 - 0.4 g/dL [facility] Alpha-2 globulin 0.7 0.5 - 1.0 g/dL [facility] Beta-1 globulin 0.4 0.3 - 0.6 g/dL [facility] Beta-2 globulin 0.3 0.2 - 0.6 g/dL [facility] Gamma globulin 0.6 0.5 - 1.7 g/dL [facility] SPEP interp Please see comment [facility] Comment: No apparent monoclonal peak Reviewed and signed by Erica Grant MD, PhD 07/10/2025 Blood 07/09/2025 12:1 0 PM CDT 07/09/2025 2:12 PM CDT Result [facility] Rebecca Andrade MD LAB BLOOD ORDERABLES Final Result Performing Organization Address City/[facility] Co de Phone Number АНДРЕЙ [facility] [place] [address] * Phosphorus (07/09/2025 12:10 PM CDT) Pathologist [facility] Phosphorus, pl 3.1 2.3 - 4.5 mg/dL Blood 07/09/2025 12:1 0 PM CDT 07/09/2025 2:12 PM CDT Rebecca Andrade MD LAB BLOOD ORDERABLES Final Result [facility] [place] [address] * (ABNORMAL) PTH (07/09/2025 12:10 PM CDT) [facility] PTH 61(H) 18 - 59 pg/mL Blood 07/09/2025 12:1 0 PM CDT 07/09/2025 2:12 PM CDT Rebecca Andrade MD LAB BLOOD ORDERABLES Final Result Performing Organization Address City/[facility]/ZIP Co de Phone Number [facility] [place] [address] * IgA (07/09/2025 12:10 PM CDT) Pathologist [facility] Immunoglobulin A 81 70 - 400 mg/dL Blood 07/09/2025 12:1 0 PM CDT 07/09/2025 2:12 PM CDT Rebecca Andrade MD LAB BLOOD ORDERABLES Final Result Performing Organization Address City/[facility]/[place] [address] * Comprehensive metabolic panel (07/09/2025 12:10 PM CDT) [facility] Sodium 141 135 - 145 mmol/L Potassium, pl 4.1 3.3 - 4.9 mmol/L [facility] Chloride 104 97 - 110 mmol/L [facility] CO2 29 22 - 32 mmol/L [facility] Anion gap 8 2 - 15 mmol/L [facility] BUN 19 6 - 25 mg/dL [facility] Creatinine 0.68 0.60 - 1.10 mg/dL [facility] Glucose 100 70 - 199 mg/dL [facility] Comment: Interpretive Data Fasting glucose >/= 126 mg/dl is diagnostic for diabetes. Fasting is defined as no caloric intake for at least 8 hours. Fasting glucose between 100 mg/dl to 125 mg/dl is diagnostic of prediabetes. In a patient with classic symptoms of hyperglycemia or hyperglycemic crisis, a random glucose >/= 200 mg/dl is diagnostic for diabetes. In the absence of unequivocal hyperglycemia, results should be confirmed by repeat testing. The classification and Diagnosis of Diabetes Diabetes Care 2021; 46: S19-S40. Current interpretive data was last revised 2022. Calcium 9.6 8.5 - 10.3 mg/dL [facility] Bilirubin, total 0.4 0.1 - 1.2 mg/dL [facility] Protein, pl 7.1 6.5 - 8.5 g/dL [facility] Albumin 4.4 3.5 - 5.0 g/dL [facility] Alk phos 66 40 - 130 Units/L [facility] ALT 17 7 - 45 Units/L [facility] AST 20 10 - 45 Units/L [facility] Blood 07/09/2025 12:1 0 PM CDT 07/09/2025 2:12 PM CDT us Rebecca Andrade MD LAB BLOOD ORDERABLES Final Result [facility] Department [place] [address] * Dexa TBS Axial Skeleton Bone Density 1 or more sites (07/09/2025 10:37 AM CDT) Anatomical Region Laterality Modality Wrist, Body N/A Radiographic Batsheva ging Narrative 07/09/2025 4:39 PM CDT Patient Name: Anabela Eaton Date of : 1955 Date of scan: 07/09/2025 Bone mineral density was performed on a [employer] Discovery Densitometer. Based on machine cross-calibration and precision studies the least significant changes of this densitometer is 0.024 g/cm2 at the spine, 0.020 g/cm2 at the total proximal femur, and 0.014g/cm2 at the forearm. HISTORY: This is a 69 y.o. postmenopausal female with a history of asthma and low bone mass. She reports that she has never smoked. She has never used smokeless tobacco. Currently on treatment with calcium, vitamin D, zoledronic acid (Reclast), and diuretics, previously treated with alendronate (Fosamax) and hormone replacement therapy, and current complaint of back pain. INDICATIONS: Menopause status, treatment monitoring, history of prior right wrist and vertebral fracture, and history of low bone mass. FINDINGS: BONE MINERAL DENSITY OF THE PROXIMAL FEMUR Bone Mineral Density (BMD) of the left hip total was found to be 0.889 gm/cm2. This corresponds to a T-score standard deviations from the mean of young adults of -0.4. Femoral neck is 0.836 gm/cm2 with a T-score (standard deviations from the mean of young adults) of -0.1. When compared to the previous study of 06/12/2024 there has been no significant changes in bone density. BONE MINERAL DENSITY OF THE FOREARM Bone Mineral density (BMD) of the left proximal 1/3 of the radius measures 0.644 gm/cm2. This corresponds to a T-score (standard deviations from the mean of young adults) of -0.8. When compared to the previous study of 06/12/2024 there has been a -0.028 gm/cm (-4.1%) decrease in bone density that is considered significant. A forearm bone density study was performed instead of a spine study due to history of vertebral compression fracture. SUMMARY: Bone mineral density is near the young adult normal mean with no increased risk for fracture. There has been a significant decrease in bone density since previous measurement. The lumbar spine Trabecular Bone Score TBS was not obtained due to the bone mineral density of the spine not being acquired. ADDITIONAL COMMENTS: Postmenopausal Women and Men Over 50: Diagnostic criteria: Osteoporosis: BMD at or below -2.5 T-score; Osteopenia (low bone mass): BMD between -1.0 and -2.5 T-score. If the patient has a history of a fragility fracture, a fracture that occurred with trauma equivalent to a fall from a standing position or less, then the diagnosis is osteoporosis regardless of bone density. The history and data sections of the bone mineral density scan were prepared by Bridget Samano (R)(CBDT) who is accredited by the International Society of Clinical Densitometry. The overall patient assessment and scan interpretation were performed by Rebecca Andrade M.D. who is certified by the International Society of Clinical Densitometry. [id number] Rebecca Andrade MD IM DXA PROCEDURES Final R esult * CT Abdomen Pelvis W Contrast (05/23/2025 1:42 PM CDT) Anatomical Region Laterality Modality Body N/A Computed Tomogra phy 05/23/2025 1:57 PM CDT Narrative 05/23/2025 2:17 PM CDT EXAM DESCRIPTION: CT ABDOMEN PELVIS W CONTRAST REASON FOR STUDY: Abdominal pain, acute, nonlocalized diffuse abdominal pain with nausea and vomiting this morning Pain developed last night No fever or chills, PN using retatrutide (1st injection May 08, 2nd injection yesterday) recently. Patient has she uses MiraLax every day to keep her bowel movements regular. She reports a history of diverticulitis and feels like her symptoms may be a flare No chest pain or shortness of breath TECHNIQUE: CT scan of the abdomen and pelvis performed with intravenous and without oral contrast using helical scanning technique with dynamic intravenous contrast injection. Reconstructed coronal and sagittal MPR images reviewed. All images stored on PACS. Automated exposure control was used as a dose optimization technique for this examination. CONTRAST TYPE/DOSE: 91mL of IOVERSOL 350 MG IODINE/ML INTRAVENOUS SYRINGE injected via intravenous COMPARISON: 11/17/2017 CT colonography. FINDINGS: LOWER CHEST: Minimal atelectasis. Stable tiny nodule in the left lower lobe on image 52 of series 2.. 4 mm left lower lobe pulmonary nodule on image 27, not evaluated on the prior CT LIVER: Normal size. No identified cystic or solid masses. GALLBLADDER: Gallbladder is mildly dilated but is similar in appearance to 11/17/2017. No surrounding fat stranding. No calcified stones BILE DUCTS: No intrahepatic or extrahepatic ductal dilatation. SPLEEN: Normal size. No focal lesions. PANCREAS: No identified cystic or solid masses. No significant calcifications. No adjacent inflammation or peripancreatic fluid collections. Pancreatic duct not dilated. ADRENALS: Normal. KIDNEYS/URINARY TRACT: 3 mm hypoattenuating focus in the posterior left kidney on image 72 of series 2 is too small to fully characterize, but statistically most likely a cyst. No radiopaque urolithiasis or hydroureteronephrosis is seen. Urinary bladder is unremarkable. GI: The rectum is mildly thick walled with adjacent fat stranding, compatible with proctitis. There is colonic diverticulosis without evidence for acute diverticulitis. There is stool throughout the colon which would be compatible with the history of constipation. The appendix is normal. Visualized distal esophagus is unremarkable. The stomach appears unremarkable. No small bowel dilatation. No small bowel wall thickening. PERITONEUM/RETROPERITONEUM: Small amount of free fluid in the pelvis. Prominent lymph nodes along the inferior mesenteric chain, similar to 11/17/2017 REPRODUCTIVE: No suspicious findings VASCULATURE: No venous thrombosis is identified. Mild atherosclerosis is present. No flow-limiting stenosis or aneurysm is seen. MUSCULOSKELETAL: Right total hip arthroplasty. Multilevel facet osteoarthritis, severe in the inferior lumbar spine. L2 vertebral body fracture status post vertebral augmentation. Unchanged osseous retropulsion at the posterosuperior corner with grossly unchanged spinal canal stenosis since 03/11/2025 MRI.. Unchanged eviz-kd-hmvzrlae L5 and mild L4 vertebral body chronic compression fractures. No acute fracture or aggressive bone lesion is seen. Unchanged L2 on L3 mild retrolisthesis and mild L1 on L2 retrolisthesis. T11 vertebral body hemangioma is redemonstrated. Moderate left hip osteoarthritis OTHER: Small fat containing umbilical hernia. IMPRESSION: 1. Mild rectal wall thickening with adjacent fat stranding, compatible with proctitis. 2. Colonic diverticulosis without evidence for acute diverticulitis. 3. Small amount of free fluid in the pelvis. 4. Stool throughout the colon, which would be compatible with a history of constipation. 5. 4 mm left lower lobe pulmonary nodule. 6. According to recent guidelines by the Fleischner Society, no follow up is required for incidental nodules less than 6 mm found on incomplete thoracic imaging on the basis of estimated low risk of malignancy. 7. Note: These recommendations do not apply to patients with immunosuppression, or patients with known primary cancer. http://pubs.rsna.org/doi/pdf/10.1148/radiol.6417697448 THIS IS AN ELECTRONICALLY VERIFIED FINAL REPORT 05/23/2025 2:17 PM - Electronically signed by Ike Toro M.D. MZ: LISA Report ID: [id number] Reading Location: [id number] Procedure Note Ike Toro MD - 05/23/2025 EXAM DESCRIPTION: CT ABDOMEN PELVIS W CONTRAST REASON FOR STUDY: Abdominal pain, acute, nonlocalized diffuse abdominal pain with nausea and vomiting this morning Paindeveloped last night No fever or chills, PN using retatrutide (1st injection , 2nd injection yesterday) recently. Patient has she uses MiraLax every dayto keep her bowel movements regular. She reports a history of diverticulitisand feels like her symptoms may be a flare No chest pain or shortness ofbreath TECHNIQUE: CT scan of the abdomen and pelvis performed with intravenousand without oral contrast using helical scanning technique with dynamic intravenous contrast injection. Reconstructed coronal and sagittal MPRimages reviewed. All images stored on PACS. Automated exposure control was usedas a dose optimization technique for this examination. CONTRAST TYPE/DOSE: 91mL of IOVERSOL 350 MG IODINE/ML INTRAVENOUSSYRINGE injected via intravenous COMPARISON: 11/17/2017 CT colonography. FINDINGS: LOWER CHEST: Minimal atelectasis. Stable tiny nodule in theleft lower lobe on image 52 of series 2.. 4 mm left lower lobe pulmonarynodule on image 27, not evaluated on the prior CT LIVER: Normal size. No identified cystic or solid masses. GALLBLADDER: Gallbladder is mildly dilated but is similar in appearanceto 11/17/2017. No surrounding fat stranding. No calcified stones BILE DUCTS: No intrahepatic or extrahepatic ductal dilatation. SPLEEN: Normal size. No focal lesions. PANCREAS: No identified cystic or solid masses. No significant calcifications. No adjacent inflammation or peripancreatic fluidcollections. Pancreatic duct not dilated. ADRENALS: Normal. KIDNEYS/URINARY TRACT: 3 mm hypoattenuating focus in the posterior left kidney on image 72 of series 2 is too small to fully characterize, but statistically most likely a cyst. No radiopaque urolithiasis or hydroureteronephrosis is seen. Urinary bladder is unremarkable. GI: The rectum is mildly thick walled with adjacent fat stranding, compatible with proctitis. There is colonic diverticulosis withoutevidence for acute diverticulitis. There is stool throughout the colon which wouldbe compatible with the history of constipation. The appendix is normal. Visualized distal esophagus is unremarkable. The stomach appears unremarkable. No small bowel dilatation. No small bowel wall thickening. PERITONEUM/RETROPERITONEUM: Small amount of free fluid in the pelvis. Prominent lymph nodes along the inferior mesenteric chain, similar to 11/17/2017 REPRODUCTIVE: No suspicious findings VASCULATURE: No venous thrombosis is identified. Mild atherosclerosisis present. No flow-limiting stenosis or aneurysm is seen. MUSCULOSKELETAL: Right total hip arthroplasty. Multilevel facet osteoarthritis, severe in the inferior lumbar spine. L2 vertebral body fracture status post vertebral augmentation. Unchanged osseousretropulsion at the posterosuperior corner with grossly unchanged spinal canal stenosis since 03/11/2025 MRI.. Unchanged wgiu-hn-yxvhswgz L5 and mild X1eybhghncs body chronic compression fractures. No acute fracture or aggressive bone lesion is seen. Unchanged L2 on L3 mild retrolisthesis and mild L1 on L2 retrolisthesis. T11 vertebral body hemangioma is redemonstrated.Moderate left hip osteoarthritis OTHER: Small fat containing umbilical hernia. IMPRESSION: 1. Mild rectal wall thickening with adjacent fat stranding, compatiblewith proctitis. 2. Colonic diverticulosis without evidence for acute diverticulitis. 3. Small amount of free fluid in the pelvis. 4. Stool throughout the colon, which would be compatible with a historyof constipation. 5. 4 mm left lower lobe pulmonary nodule. 6. According to recent guidelines by the Fleischner Society, no followup is required for incidental nodules less than 6 mm found on incompletethoracic imaging on the basis of estimated low risk of malignancy. 7. Note: These recommendations do not apply to patients with immunosuppression, or patients with known primary cancer. http://pubs.rsna.org/doi/pdf/10.1148/radiol.2889670438 THIS IS AN ELECTRONICALLY VERIFIED FINAL REPORT 05/23/2025 2:17 PM - Electronically signed by Ike Toro M.D. MZ: MZ Report ID: [id number] Reading Location: [place] [address] us Senthil Olivas DO IMG CT PROCEDURES Final Result * eGFR (05/23/2025 12:45 PM CDT) eGFR >90 >=60 mL/min/1. 73 m2 Comment: Interpretive Data Reference Interval Normal >/= 90 mL/min/1.73m2 Mildly decreased* 60 - 89 mL/min/1.73m2 Mildly to moderately decreased 45 - 59 mL/min/1.73m2 Moderately to severely decreased 30 - 44 mL/min/1.73m2 Severely decreased 15 - 29 mL/min/1.73m2 Kidney Failure < 15 mL/min/1.73m2 *Relative to young adult level Estimated glomerular filtration rate is determined by the 2020 CKD-EPI equation recommended by the National Kidney Foundation (A Unifying Approach to GFR Estimation: Recommendations of the NKF-ASK Task Force on Reassessing the Inclusion of Race in Diagnosing Kidney Disease, JASN 2020). The CKD-EPI equation should not be used for patients with unstable renal function and has not been validated in children and those over 70. Current interpretive data was last reviewed 2021. Testing performed by: [facility], [address] [place] [address]., [id number] Blood 05/23/2025 12:4 5 PM CDT 05/23/2025 12:48 PM CDT us Senthil Olivas DO LAB BLOOD ORDERABLES Final Res ult АНДРЕЙ [address] [facility] Department [place] [address] * (ABNORMAL) Differential, auto (05/23/2025 12:45 PM CDT) Neutrophil abs 11.57(H) 1.50 - 6.50 K/cumm Comment:Testing performed by : [address], [place]., [address] Imm gran abs 0.08 0.00 - 0.10 K/cumm [facility] Comment:Testing performed by : [address], [place]., [address] Lymphocyte abs 1.03 0.80 - 3.30 K/cumm [facility] Comment:Testing performed by : [address], [place]., [address] Monocyte abs 0.75 0.20 - 0.80 K/cumm [facility] Comment:Testing performed by : [address], [place]., [address] Eosinophil abs 0.03 0.00 - 0.50 K/cumm [facility] Comment:Testing performed by : [address], [place]., [address] Basophil abs 0.05 0.00 - 0.10 K/cumm [facility] Comment:Testing performed by : [address] [address] Neutrophil pct 85.6 % [facility] Comment: Interpretive Data Percent cell count reference ranges are not reported, since discordance with absolute values may lead to misinterpretation of CBC data. Current Interpretive Data was last revised on 2018. Testing performed by: [address] [address] Imm gran pct 0.6 % [facility] Comment: Interpretive Data Percent cell count reference ranges are not reported, since discordance with absolute values may lead to misinterpretation of CBC data. Current Interpretive Data was last revised on 2018. Testing performed by: [address] [address] Lymphocyte pct 7.6 % [facility] Comment: Interpretive Data Percent cell count reference ranges are not reported, since discordance with absolute values may lead to misinterpretation of CBC data. Current Interpretive Data was last revised on 2018. Testing performed by: [address] [address] Monocyte pct 5.6 % [facility] Comment: Interpretive Data Percent cell count reference ranges are not reported, since discordance with absolute values may lead to misinterpretation of CBC data. Current Interpretive Data was last revised on 2018. Testing performed by: [address] [address] Eosinophil pct 0.2 % АНДРЕЙ Comment: Interpretive Data Percent cell count reference ranges are not reported, since discordance with absolute values may lead to misinterpretation of CBC data. Current Interpretive Data was last revised on 2018. Testing performed by: [address] [address] Basophil pct 0.4 % АНДРЕЙ Comment: Interpretive Data Percent cell count reference ranges are not reported, since discordance with absolute values may lead to misinterpretation of CBC data. Current Interpretive Data was last revised on 2018. Testing performed by: [address] [address] Blood 05/23/2025 12:4 5 PM CDT 05/23/2025 12:48 PM CDT us Chad [facility] LAB BLOOD ORDERABL ES Final Result [facility] [address] [facility] Department [place] [address] * (ABNORMAL) CBC with auto differential (05/23/2025 12:45 PM CDT) WBC 13.51(H) 3.80 - 9.90 K/cumm Comment:Testing performed by : [address] [address] Hgb 14.4 11.9 - 15.5 g/dL АНДРЕЙ Comment:Testing performed by : [address] [address] Hct 40.0 35.6 - 45.5 % АНДРЕЙ Comment:Testing performed by : [address] [address] Plt 290 150 - 400 K/cumm АНДРЕЙ Comment:Testing performed by : [address] [address] MPV 10.3 9.1 - 12.3 fL АНДРЕЙ CATHERINE Comment:Testing performed by : [address], [address] RBC 4.47 3.90 - 5.20 M/cumm АНДРЕЙ CATHERINE Comment:Testing performed by : [address] [address] MCV 89.5 81.3 - 96.4 fL АНДРЕЙ CATHERINE Comment:Testing performed by : [address] [address] MCH 32.2 27.1 - 33.3 pg АНДРЕЙ CATHERINE Comment:Testing performed by : [address], [address] MCHC 36.0(H) 32.3 - 35.7 g/dL АНДРЕЙ CATHERINE Comment:Testing performed by : [address], [address] RDW CV 12.4 11.1 - 14.9 % АНДРЕЙ CATHERINE Comment:Testing performed by : [address], [address] RDW SD 40.7 35.7 - 48.1 fL АНДРЕЙ Comment:Testing performed by : [address], [address] NRBC abs 0.00 0.00 - 0.01 K/cumm АНДРЕЙ CATHERINE Comment:Testing performed by : [address], [address] Blood 05/23/2025 12:4 5 PM CDT 05/23/2025 12:48 PM CDT us Chad [facility] LAB BLOOD ORDERABL ES Final Result АНДРЕЙ [address] [facility] Department [place] [address] * Lipase (05/23/2025 12:45 PM CDT) Lipase 28 10 - 99 Units/L Comment:Testing performed by : [address] [address] Blood 05/23/2025 12:4 5 PM CDT 05/23/2025 12:48 PM CDT us Senthil Olivas DO LAB BLOOD ORDERABLES Final Res ult [facility] [address] [facility] Department [place] [address] * (ABNORMAL) Comprehensive metabolic panel (05/23/2025 12:45 PM CDT) Pathologist [facility] Sodium 136 135 - 145 mmol/L Comment:Testing performed by : [address] [address] Potassium, pl 3.8 3.3 - 4.9 mmol/L АНДРЕЙ Comment: Hemolyzed; Potassium value may be falsely elevated by as much as 1.0 mmol/L. Suggest redraw and reanalysis. Testing performed by: [address] [address] Chloride 99 97 - 110 mmol/L АНДРЕЙ Comment:Testing performed by : [address] [address] CO2 19(L) 22 - 32 mmol/L АНДРЕЙ Comment:Testing performed by : [address] [address] Anion gap 18(H) 2 - 15 mmol/L АНДРЕЙ Comment:Testing performed by : [address] [address] BUN 16 6 - 25 mg/dL АДНРЕЙ Comment:Testing performed by : [address] [address] Creatinine 0.60 0.60 - 1.10 mg/dL АНДРЕЙ Comment:Testing performed by : [address] [address] Glucose 146 70 - 199 mg/dL АНДРЕЙ Comment: Interpretive Data Fasting glucose >/= 126 mg/dl is diagnostic for diabetes. Fasting is defined as no caloric intake for at least 8 hours. Fasting glucose between 100 mg/dl to 125 mg/dl is diagnostic of prediabetes. In a patient with classic symptoms of hyperglycemia or hyperglycemic crisis, a random glucose >/= 200 mg/dl is diagnostic for diabetes. In the absence of unequivocal hyperglycemia, results should be confirmed by repeat testing. The classification and Diagnosis of Diabetes Diabetes Care 202; 46: S19-S40. Current interpretive data was last revised 2022. Testing performed by: [address] [address] Calcium 10.2 8.5 - 10.3 mg/dL АНДРЕЙ Comment:Testing performed by : [address] [address] Bilirubin, total 0.7 0.1 - 1.2 mg/dL АНДРЕЙ Comment:Testing performed by : [address] [address] Protein, pl 7.3 6.5 - 8.5 g/dL АНДРЕЙ Comment:Testing performed by : [address] [address] Albumin 4.7 3.5 - 5.0 g/dL АНДРЕЙ Comment:Testing performed by : [address] [address] Alk phos 78 40 - 130 Units/L АНДРЕЙ Comment:Testing performed by : [address] [address] ALT 19 7 - 45 Units/L АНДРЕЙ Comment:Testing performed by : [address] [address] AST 30 10 - 45 Units/L АНДРЕЙ Comment: Hemolyzed; result may be falsely elevated Testing performed by: [address] [address] Blood 05/23/2025 12:4 5 PM CDT 05/23/2025 12:48 PM CDT us Senthil Olivas DO LAB BLOOD ORDERABLES Final Res ult АНДРЕЙ [address] [facility] [place] [address] * Screening Mammogram Bilateral W Christopher (01/17/2025 10:50 AM CDT) Anatomical Region Laterality Modality Breast Bilateral Mammography Narrative 01/20/2025 3:01 PM CDT Mammogram Technique: Bilateral Digital Breast Tomosynthesis, Bilateral C-view 2D Screening mammogram. Views obtained: bilateral craniocaudal and bilateral mediolateral oblique. Computer Aided Detection was performed. Mammogram Findings: The present examination has been compared to prior imaging studies performed at [facility] on 01/05/2022, 01/12/2023 and 01/16/2024. There are scattered areas of fibroglandular density. There is no suspicious abnormality in either breast. Impression: There is no mammographic evidence of malignancy. Annual screening mammography is recommended. OVERALL FINAL ASSESSMENT: BI-RADS CATEGORY 1: Negative. Procedure Note Vinita Kirby MD - 01/20/2025 Mammogram Technique: Bilateral Digital Breast Tomosynthesis, Bilateral C-view 2D Screening mammogram. Views obtained: bilateral craniocaudal and bilateral mediolateral oblique. Computer Aided Detection was performed. Mammogram Findings: The present examination has been compared to prior imaging studies performed at [facility] on 01/05/2022, 01/12/2023 and 01/16/2024. There are scattered areas of fibroglandular density. There is no suspicious abnormality in either breast. Impression: There is no mammographic evidence of malignancy. Annual screening mammography is recommended. OVERALL FINAL ASSESSMENT: BI-RADS CATEGORY 1: Negative. us Self Screening Mammogram IMG MAMMO PROCEDURES Fi nal Result * CT Virtual Colonoscopy Diagnostic WO Contrast (11/17/2017 3:30 PM FARM AP[facility]AISER) Anatomical Region Laterality Modality Body N/A Computed Tomogra phy 11/17/2017 3:30 PM [facility] Narrative 11/17/2017 4:13 PM [facility] TAMIKO CAMACHO M.D. FINAL REPORT ACC# Date Time Exam [id number] Nov 17, 2017 09:30:[id number] Colonography Dx w/o EXAMINATION: CT colonography without intravenous contrast HISTORY: 62-year-old female with failed colonoscopy. TECHNIQUE: Transaxial computed tomographic images through the abdomen and pelvis were obtained without intravenous contrast after insufflation of the colon with CO2 through a rectal catheter. COMPARISON: None FINDINGS: The following findings are reported according to the CT Colonography Reporting and Data System (C-RADS) from Radiology 2005; 236:3-9. Colonic preparation and distention: Poor distention of the sigmoid colon is achieved due to extensive chronic diverticulosis and thickening. Colonic findings: No polyps greater than 5 mm are detected. Extracolonic findings: This CT examination is performed without intravenous contrast and with a low dose technique optimized for evaluation of the colon. There is mild bilateral hip osteoarthritis. IMPRESSION: C1: Normal colon or benign lesion, continue routine screening. Sigmoid colon diverticulosis limits evaluation of this segment. E2: Clinically unimportant finding, no workup indicated. Electronically signed by: Tamiko Camacho M.D. Requested By: Yuan Perea M.D. Dictated By: TAMIKO CAMACHO M.D. on Nov 17 2017 10:11A This document has been electronically signed by: TAMIKO CAMACHO M.D. on Nov 17 2017 10:11A [id number] CAMACHO M.D. FINAL REPORT Attending: YUAN PEREA Requesting: Yuan Perea Requesting Fax: Attending Fax: Attending ID: [id number] Requesting ID: [id number] Report To 1 ID: [id number] Report To 1 Name: , Report To 1 FAX: NextGen Order #: Procedure Note Miscellaneous, Not In File - 11/17/2017 TAMIKO CAMACHO M.D. FINAL REPORT ACC# Date Time Exam [id number] Nov 17, 2017 09:30:[id number] Colonography Dx w/o EXAMINATION: CT colonography without intravenous contrast HISTORY: 62-year-old female with failed colonoscopy. TECHNIQUE: Transaxial computed tomographic images through the abdomen and pelvis were obtained without intravenous contrast after insufflation of the colon with CO2 through a rectal catheter. COMPARISON: None FINDINGS: The following findings are reported according to the CT Colonography Reporting and Data System (C-RADS) from Radiology 2005; 236:3-9. Colonic preparation and distention: Poor distention of the sigmoid colon is achieved due to extensive chronic diverticulosis and thickening. Colonic findings: No polyps greater than 5 mm are detected. Extracolonic findings: This CT examination is performed without intravenous contrast and with a low dose technique optimized for evaluation of the colon. There is mild bilateral hip osteoarthritis. IMPRESSION: C1: Normal colon or benign lesion, continue routine screening. Sigmoid colon diverticulosis limits evaluation of this segment. E2: Clinically unimportant finding, no workup indicated. Electronically signed by: Tamiko Camacho M.D. Requested By: Yuan Perea M.D. Dictated By: TAMIKO CAMACHO M.D. on Nov 17 2017 10:11A This document has been electronically signed by: TAMIKO CAMACHO M.D. on Nov 17 2017 10:11A [id number] CAMACHO M.D. FINAL REPORT Attending: YUAN PEREA Requesting: Yuan Perea Requesting Fax: Attending Fax: Attending ID: [id number] Requesting ID: [id number] Report To 1 ID: [id number] Report To 1 Name: , Report To 1 FAX: NextGen Order #: Yuan Perea MD IM CT PROCEDURES Final Resul t from Last 3 Months or Most Recently Relevant to Health Maintenance Insurance [facility] MEDICARE ADVANTAGE [facility] MEDICARE Address: [facility] [address] [place] [address] [facility] MEDICARE Address: [address] [address] [facility] MEDICARE ADVANTAGE [facility] MEDICARE Address: [address] [address] Care Teams Electrical Engineering Teacher Relationship Specialty Start Date End Date Jose Juan Caraballo MD [address] [place] [address] PCP - General 12/06/17 Darci Graves MD [address] [place] [address] Referring Physician Orthopedic Surgery 10/22/21
--- OUTSIDE RECORDS SUMMARY | 2025-08-15 14:24 | XMS_ITS | Clinical Summary ---
Author Organization [facility] Address [address] [place] [address] Care Team Providers Care Research Epidemiologist Name Role Phone Jose Juan Caraballo MD Primary Care Provider [phone] Source Comments [facility],non-[facility] Affiliates and Associated Physician Practices is amultiple site organization consisting of ambulatory clinics and hospital sitesin [place], [place], [place] and [place]. This disclosure is being madepursuant to the Care Everywhere program and may not contain all information available regarding this patient. Last updated 18.[facility] [employer] Allergies Active Allergy Reactions Criticality Noted Date Comments Penicillins 07/22/2017 Immunizations Immunization Administration Dates Next Due INFLUENZA VACCINE, QUADR. 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 Gender Identity Not on file Sexual Orientation Not on file Plan of Treatment Health Maintenance Due Date Last Done Comments BONE DENSITY TESTING 1955 COLOGUARD (AGES 45-75) - COL ON CA SCREENING 1955 COLON MONITORING 1955 COLONOSCOPY - COLON CA SCREENING 1955 CT COLONOGRAPHY - COLON CA SCREENING 1955 Colorectal Cancer Screening 1955 FIT - COLON CA SCREENING 1955 FLEX SIG - COLON CA SCREENING 1955 LIPID TESTING 1955 MAMMOGRAM 1955 HEPATITIS C SCREENING 09/25/1973 DTAP/TDAP/TD VACCINES (1 - Tdap) 1974 PNEUMOCOCCAL VACCINE 50+ (1 of 1 - PCV) 2005 ZOSTER VACCINE (1 of 2) 2005 DEPRESSION SCREENING 10/16/2024 MEDICARE AWV CALENDAR YEAR 2024 COVID-19 VACCINE (1 - 2023-2 5 season) 2025 INFLUENZA VACCINE (#1) 2025 07/22/2017 Respiratory Syncytial Virus (RSV) Vaccine Pt: or over 60 yrs (1 - 1-dose 75+ series) 2030 HEPATITIS B VACCINE Aged Out No longe r eligible based on patient's age to complete this topic HIB VACCINE Aged Out No longer eligi ble based on patient's age to complete this topic HPV VACCINE Aged Out No longer eligi ble based on patient's age to complete this topic MENINGOCOCCAL (Group B) VACC INE SHARED DECISION-MAKING Aged Out No longer eligibl e based on patient's age to complete this topic MENINGOCOCCAL GROUPS A/C/Y/W VACCINE Aged Out No longer eligible b ased on patient's age to complete this topic Insurance [employer] MANAGED MEDICARE ADV MANAGED MEDICARE ADV Care Teams Research Epidemiologist Relationship Specialty Start Date End Date Jose Juan Caraballo MD [address] [place], [place] [id number] PCP - General Family Medicine 07/22/17
--- OUTSIDE RECORDS SUMMARY | 2025-08-15 14:24 | XMS_ITS | Encounter Summary ---
Author Organization [facility] Address [address] [place] [address] Care Team Providers Care Phlebotomy Technician Name Role Phone Jose Juan Caraballo MD Primary Care Provider [phone] Encounter Details Date Type Department Care Team (Late st Contact Info) Description 06/27/2023 Lab Requisition [facility] - DermPath Lab [address], [place] [id number] Pooja Neal PA-C [address] [place] [phone] Neoplasm of uncertain behavior of skin Social History Tobacco Use Types Packs/Day Years Used Date Smoking Tobacco: Never Assessed Comments Unknown Sex and Gender Information Value Date Recorded Sex Assigned at Not on file 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 Gender Identity Not on file Sexual Orientation Not on file documented as of this encounter Plan of Treatment Not on file documented as of this encounter Procedures Procedure Name Priority Date/Time Associated Diagnosis Comments DERMATOPATHOLOGY Routine 06/27/2023 12:0 0 AM CDT Neoplasm of uncertain behavior of skin documented in this encounter Results * DERMATOPATHOLOGY (06/27/2023 12:00 AM CDT) Case Report Dermatopathology Report Case: [id number] Authorizing Provider: Pooja Neal, Collected: 06/27/2023 12:00 AM NIXON Ordering Location: [facility] Lab Received: 06/28/2023 01:58 PM Pathologist: Inga Naranjo MD Specimen: Skin, left forearm 3 3:25 PM CDT DERMATOPATHOLOGY LABORATORY Final Diagnosis Specimen A. SKIN, left forearm: COMPOUND MELANOCYTIC NEVUS (D22.62) 3 3:25 PM CDT DERMATOPATHOLOGY LABORATORY at 1525 CDT Clinical History Atypical Nevus 3 3:25 PM CDT DERMATOPATHOLOGY LABORATORY Gross Description Specimen A: Received is one formalin filled container labeled with the patient's name and designated left forearm. The specimen consists of a shave biopsy measuring 4x4x1 mm. Jar 0. 3 3:25 PM CDT DERMATOPATHOLOGY LABORATORY Microscopic Description Specimen A. SKIN, left forearm: There are nests of melanocytes at the dermal-epidermal junction and within the dermis. 3 3:25 PM CDT DERMATOPATHOLOGY LABORATORY Disclaimer An external and internal positive and negative controls are appropriate for the histochemical, immunohistochemical and immunofluorescence stain(s) in this case (if any), except where stated explicitly. The performance characteristics of the stain(s) cited in this report were developed and its performance characteristic determined by the Dermatopathology Laboratory at [facility], directed by Dr. Darshana Estrada. These tests need not be, and therefore are not, approved by the [place] Food and Drug Administration. The tests are used for clinical purposes. Billing Codes Specimen Charges Stain Charges 34846 1 3 3:25 PM CDT DERMATOPATHOLOGY LABORATORY Embedded Images 3 3:25 PM CDT DERMATOPATHOLOGY LABORATORY Pathology/Cytolog y TISSUE SPECIMEN FROM SKIN / Unknown 06/27/2023 06/28/2023 1:58 PM CDT us Pooja Neal PA-C LAB - PATHOLOGY/CYTO LOGY ORDERABLES Final Result DERMATOPATHOLOGY LABORATORY [facility] - Department of Dermatology [address] [phone] documented in this encounter Visit Diagnoses Diagnosis Neoplasm of uncertain behavior of skin documented in this encounter Care Teams Phlebotomy Technician Relationship Specialty Start Date End Date Jose Juan Caraballo MD [address] [place] [address] PCP - General Family Medicine 07/22/17 documented as of this encounter
== END 2025-08-15 14:11 | disposition home or self-care (01) ==
PROVIDERS: PCP Family Medicine; Visit Provider Nurse Practitioner Family
DX: K76.0 Fatty (change of) liver, not elsewhere classified (principal); K74.00 Hepatic fibrosis, unspecified
CPT/HCPCS: 82105; 82390; 86376; 86381